=== PATIENT | female | born 1995 | race African-American/Black ===

== ENCOUNTER 2023-03-21 08:39 | Emergency (ER) | payer OTHER ==
--- OUTSIDE RECORDS SUMMARY | 2023-03-21 08:41 | XMS REPORT | Continuity of Care Document ---
:1995 Author Organization [facility] t Address [address] [facility] [address] [place] [address] Care Team Providers Name Role Phone PCP, PATIENT DOES NOT HAVE A Primary Care Physician Unavaila Margy Diaz Attending Clinician Unavailable Katrina MORENO Attending Clinician Unavailable Katrina Bravo Attending Clinician CENTER, URGENT CARE Admitting Clinician Unavailable Physician, No Primary or Family Admitting Clinician Unavaila sina Payers Payer Name Policy Type Policy Number Effective Date Expiration Date S driss [facility] [id number] 2022 MANAGED MEDICAID 00:00:00 STAR NON CONTRACTED Problems This patient has no known problems. Allergies, Adverse Reactions, Alerts Allergy Allergy Status Severity Reaction(s) Onset Inactive Treating Comm ents Source Name Type Date Date Clinician No Known DA Active [facility] No Known DA Active U [facility] All[facility]ie 09-02 [facility] NO KNOWN Drug Active Univers ALLERGIE Class ity of S [facility] Social History Social Habit Start Date Stop Date Quantity Comments Source Exposure to 2022-09-21 2022-10-01 Not sure [facility] SARS-CoV-2 (event) 00:00:00 23:41:00 Medica l Branch Sex Assigned At [birth year] [facility] 00:00:00 00:00:00 Medical Branch Smoking Status Start Date Stop Date Source Tobacco smoking consumption [facility] unknown Branch Medications This patient has no known medications. Vital Signs Vital Name Observation Time Observation Value Comments Source Systolic blood 2022-10-02 119 mm[Hg] Simultaneous [facility] pressure 06:40:00 filing. User may [place] [facility] not have seen Branch previous data. Diastolic blood 2022-10-02 70 mm[Hg] Simultaneous [facility] pressure 06:40:00 filing. User may [place] [facility] not have seen Branch previous data. Heart rate 2022-10-02 82 /min Simultaneous [facility] 06:40:00 filing. User may [place] [facility] not have seen Branch previous data. Body temperature 2022-10-02 36.89 Aracelis [facility] 06:40:00 [facility] Respiratory rate 2022-10-02 16 /min Simultaneous [facility] 06:40:00 filing. User may [place] [facility] not have seen Branch previous data. Oxygen saturation 2022-10-02 98 /min Simultaneous [facility] in Arterial blood 06:40:00 filing. User may [place] [facility] by Pulse oximetry not have seen Branch previous data. Body height 2022-10-02 162.6 cm [facility] 04:41:00 [facility] Body weight 2022-10-02 76.204 kg [facility] 04:41:00 [facility] BMI 2022-10-02 28.84 kg/m2 [facility] 04:41:00 [facility] Procedures Procedure Date / Time Performing Clinician Source Performed ABORH CONFIRMATION (LAB 2022-10-02 06:11:00 Katrina Moreno [facility] ONLY) [facility] TOTAL BETA HCG ASSAY 2022-10-02 05:14:00 Kartina Moreno [facility] HB ABO GROUPING 2022-10-02 05:14:00 Katrina Moreno [facility] URINALYSIS 2022-10-02 04:52:00 Katrina Moreno [facility] NOTICE OF PRIVACY 2022-10-02 04:38:24 Doctor Unassigned, No [facility] PRACTICES Name Medical Branch CONSENT/REFUSAL FOR 2022-10-02 04:37:37 Doctor Unassigned, No Un [facility] DIAGNOSIS AND TREATMENT Name Medical Branch Encounters Start End Encounter Admission Attending Care Care Encounter Source Date/Time Date/Time Type Type Clinicians Facility Department ID 2023-01-21 2023-01-21 Outpatient [facility] [id number] [place] 08:04:19 08:04:19 [id number] [facility] 2023-01-19 2023-01-19 Outpatient [facility] [place] 11:10:08 11:10:08 [id number] [facility] 2023-01-17 2023-01-17 Emergency EM Matthias [facility] [id number] [facility] 08:44:00 10:19:00 Margy [facility] 2022-12-29 2022-12-29 Outpatient [facility] [id number] [place] 13:32:16 13:32:16 [id number] [facility] 2022-10-19 2022-10-19 Emergency EM Matthias [facility] [id number] [facility] 08:28:00 10:48:00 Margy [facility] 2022-10-01 2022-10-02 Emergency X Katrina MORENO [facility] ERT [id number] Univers 23:47:00 01:44:00 ity of [facility] 2022-10-01 2022-10-02 Emergency Katrina Moreno [facility] [id number] Univers 23:47:00 01:44:00 Melissa ANNE [id number] i [facility] [id number] [facility] [id number] [place] [id number] [place] Results Test Description Test Time Test Comments Results Result Comments Source GLUCOSE TOLERANCE, 3 HR, GESTATIONAL, DIAGNOSTIC, 100 GM LOAD 2023-01-25 16:25:22 Test Item Value Reference Range Interpretation Comme nts GLUCOSE, FASTING (test TEST NOT PERFORMED MG/DL <95 Unable to perform testing, code = 18146) specimen not r eceived.Charges adjusted as bay licable. GLUCOSE, 1 HR (test 180 MG/DL <180 H code = ) GLUCOSE, 2 HR (test 193 MG/DL <155 H code = ) GLUCOSE, 3 HR (test 164 MG/DL <140 H CRITERI A FOR GESTATIONAL code = ) DIABETES SAMPL E CHE/COUST AN AZIZA'L DIABETES DATA G ROUP FASTING < 95 MG/DL 105 MG /DL 1 HOUR < 180 MG/DL 190 M G/DL 2 HOURS < 155 MG/DL 165 M G/DL 3 HOURS < 140 MG/DL 145 M G/DL (FROM [facility] PRACTICE BULLET IN NUMBER , 2000 ) UNLESS OTHERWISE INDIC ATED, ALL TESTING PERFORM ED AT [facility] [address] [place] [address] LABORATORY DIRE CTOR: Verna NAVA VIOLETTA NUMBER [id number] [place]. [id number] DO NOT HAVE FASTING RCVDGLUCOSE, 1 HR, GESTATIONAL SCREEN, 50 GM [id number] 08:18:52 Test Item Value Reference Range Interpretation Comments GLUCOSE 1 HR POST 147 MG/DL <140 H UNLESS OT HERWISE 50 GM (test code = INDICATED , ALL TESTING 2005) PERFORMED AT [facility] [address] [place] [id number] [place] [address] DIRECTOR: Verna ROSAS VIOLETTA NUMBER [id number] CAP ACCREDITATION N O. [id number] UA RFLX MICR CULT IF [id number] 09:43:00 Test Item Value Reference Range Interpretation Comments UA COLOR (test code = COLU) YELLOW YELLOW UA APPEARANCE (test code = CLEAR CLEAR APPU) UA GLUCOSE DIPSTICK (test code NEGATIVE NEG = DGLUU) UA BILIRUBIN DIPSTICK (test NEGATIVE NEG code = BILU) UA KETONE DIPSTICK (test code NEGATIVE NEG = KETU) UA SPECIFIC GRAVITY (test code 1.008 1.001-1.035 N = SGU) UA BLOOD DIPSTICK (test code = NEG NEG PABLO) UA PH DIPSTICK (test code = 7.0 5-9 MICHELE) UA PROTEIN DIPSTICK (test code NEGATIVE NEG = PROU) UA UROBILINIOGEN DIPSTICK NEGATIVE mg/dL NEG (test code = URO) UA NITRITE DIPSTICK (test code NEG NEG = CAMPOS) UA LEUKOCYTE ESTERASE DIPSTICK NEG NEG (test code = LEUU) UA WBC (test code = WBCU) 0-2 #/hpf NONE SEEN UA EPITHELIAL CELLS (test code RARE #/HPF RARE-FEW = EPIU) UA RBC (test code = RBCU) 0-2 #/hpf NONE SEEN UA BACTERIA (test code = BACU) RARE /HPF RARE-FEW UA MUCUS (test code = MUCU) RARE NONE SEEN Indication for culture: Suprapubic PainSpecimen Description: CLEAN CATCHUR HCG [id number] 09:43:00 Test Item Value Reference Range Interpretation Comments UR HCG QUAL (test code = HCGQLU) POSITIVE Indication for culture: Suprapubic PainSpecimen Description: CLEAN CATCHCULTURE, [id number] 09:06:35SPECIMEN NUMBER: [id number] CULTURE, URINE SPECIMEN NUMBER: [id number] SPECIMEN COMMENT: URINE SOURCE:URINE REPORT STATUS: FINAL FINAL REPORT: 12/31/2022 50-100,000 CFU/ML UROGENITAL ADDISON PRESENT NO COMMON PATHOGENSDRUG ABUSE SCREEN 10 REFLEX [id number] 07:38:28 Test Item Value Reference Range Interpretation Comments AMPHETAMINES (test NEGATIVE NEGATIVE code = 3201) BARBITURATES (test NEGATIVE NEGATIVE code = 3202) BENZODIAZEPINES (test NEGATIVE NEGATIVE code = 3203) CANNABINOIDS (test NEGATIVE NEGATIVE code = 3204) COCAINE METABOLITE NEGATIVE NEGATIVE (test code = 3205) OPIATES (test code = NEGATIVE NEGATIVE 3209) OXYCODONE (test code NEGATIVE NEGATIVE = 27015) PHENCYCLIDINE (test NEGATIVE NEGATIVE code = 3210) METHADONE (test code NEGATIVE NEGATIVE = 3207) BUPRENORPHINE (test NEGATIVE NEGATIVE code = 43187) SOURCE (test code = URINE SEE BELOW FOR 182195) THRESHOLDS AND IMPORTANT METHOD NOTES * ANALYTE SCREENING CUTOF F CONFIRMATORY CUTOFF AMPHETAMINES 50 0 NG/ML 100 NG/MLBARBIT URATES 200 NG/ML 100 NG/MLBENZODIAZE PINES 200 NG/ML 100 NG/MLCANNABINOI DS (THC) 20 NG/ML 15 NG/ MLCOCAINE METABOLITES 150 NG/ML 100 NG/MLOPIATE MET ABOLITES 300 NG/ML 100 NG/MLOXYCODONE 100 NG/ML 100 NG/MLPHENCY CLIDINE (PCP) 25 NG/ML 25 NG/MLMETHADONE 300 NG/ML 100 NG/MLBUPREN ORPHINE 5 NG/ML 5 NG/ML N OTE: Screening metho dology is qualitative Enz yme Immunoassay.The screening method may be l ess sensitive for c ertain medicationsincl uding clonazepam and lorazepam in the benzodia zepine assay andtramad ol or fentanyl in the opiate assay, amongst others. Patientcomplian ce, hydration statu s, timing and dose of med ications, drugabsorption and specimen qualit y may affect screenin g assay.For clini luis discrepancies, consider directed testin g for specificcompoun ds or contact the lab oratory within specimen stability toforward for confirmatory te sting. This test is sp ecified for medicalpurp oses only. It is not valid for forensic use. U NLESS OTHERWISE INDIC ATED, ALL TESTING PERFORM ED AT [facility] PATHOL [facility], [address] [address] LABORATORY DIRE CTOR: TOM HERNANDEZ M.D. CLIA NUMBER [id number] [facility] [place]. [id number] RPR REFLEX TO T. PALLIDUM - [id number] 05:33:34 Test Item Value Reference Range Interpretation Comments RPR (test code = 52112) NON-REACTIVE NON-REACTIVE RPR TITER (test code = 3500) NOT INDIC. TITER NOT INDIC. CBC W/AUTO DIFF WITH [id number] 05:04:08 Test Item Value Reference Range Interpretation Comments WBC (test code = 6.2 K/UL 3.5-11.0 1001) RBC (test code = 3.83 M/UL 3.80-5.40 1002) HEMOGLOBIN (test code 11.0 G/DL 11.5-15.5 L = 1003) HEMATOCRIT (test code 33.7 % 34.0-45.0 L = 1004) MCV (test code = 88.0 fL 80.0-99.0 1005) MCH (test code = 28.7 PG 25.0-33.0 1006) MCHC (test code = 32.6 G/DL 31.0-36.0 1007) RDW (test code = 13.4 % 11.5-15.0 1038) NEUTROPHILS (test 75.0 % code = 1008) LYMPHOCYTES (test 15.3 % code = 1010) MONOCYTES (test code 9.0 % = 1011) EOSINOPHILS (test 0.3 % code = 1012) BASOPHILS (test code 0.2 % = 1013) IMMATURE GRANULOCYTES 0.2 % (test code = 1036) NUCLEATED RBCS (test 0.0 /100 WBC'S See_Comment [Aut omated code = 1065) message] The sy stem which generated this result transmitted reference range : 0.0. The refere nce range was not u sed to interpret th is result as normal/abnormal . PLATELET COUNT (test 248 K/UL 130-400 code = 1015) ABSOLUTE NEUTROPHILS 4.64 K/UL 1.50-7.50 (test code = 1066) ABSOLUTE LYMPHOCYTES 0.95 K/UL 1.00-4.00 L (test code = 1067) ABSOLUTE MONOCYTES 0.56 K/UL 0.20-1.00 (test code = 1068) ABSOLUTE EOSINOPHILS 0.02 K/UL 0.00-0.50 (test code = 1040) ABSOLUTE BASOPHILS 0.01 K/UL 0.00-0.20 (test code = 1069) ABS IMMATURE 0.01 K/UL 0.00-0.10 GRANULOCYTES (test code = 1020) ABS NUCLEATED RBCS 0.00 K/UL 0.00-0.11 (test code = 35246) HIV 1/2 4TH GEN, RFLX [id number] 04:34:38 Test Item Value Reference Range Interpretation Comments HIV 1/2 4TH GEN, RFLX CONF (test NON-REACTIVE NON-REACTIVE code = 3514) UA RFLX MICR CULT IF [id number] 09:55:00 Test Item Value Reference Range Interpretation Comments UA COLOR (test code = COLU) STRAW YELLOW UA APPEARANCE (test code = CLEAR CLEAR APPU) UA GLUCOSE DIPSTICK (test code NEGATIVE NEG = DGLUU) UA BILIRUBIN DIPSTICK (test NEGATIVE NEG code = BILU) UA KETONE DIPSTICK (test code NEGATIVE NEG = KETU) UA SPECIFIC GRAVITY (test code 1.005 1.001-1.035 N = SGU) UA BLOOD DIPSTICK (test code = NEG NEG PABLO) UA PH DIPSTICK (test code = 8.0 5-9 MICHELE) UA PROTEIN DIPSTICK (test code NEGATIVE NEG = PROU) UA UROBILINIOGEN DIPSTICK NEGATIVE mg/dL NEG (test code = URO) UA NITRITE DIPSTICK (test code NEG NEG = CAMPOS) UA LEUKOCYTE ESTERASE DIPSTICK NEG NEG (test code = LEUU) UA WBC (test code = WBCU) 0-2 #/hpf NONE SEEN UA EPITHELIAL CELLS (test code RARE #/HPF RARE-FEW = EPIU) Indication for culture: Gross HematuriaSpecimen Description: CLEAN CATCHUR HCG [id number] 09:55:00 Test Item Value Reference Range Interpretation Comments UR HCG QUAL (test code = HCGQLU) POSITIVE Indication for culture: Gross HematuriaSpecimen Description: CLEAN CATCH
[2023-03-21 09:47] LABS: SARS-COV-2 RT PCR NEGATIVE (NEGATIVE)
--- NOTE | 2023-03-21 09:49 | EDPHYS ---
Physician Documentation [facility] Name: Arianna Tran Age: 27 yrs Sex: Female : 1995 Arrival Date: 03/21/2023 Time: 08:39 Bed 12 Private MD: ED Physician Juan Alberto Espinoza HPI: 03/21 09:03 This 27 yrs old Black Female presents to ER via Ambulatory with complaints of Flu kb Symptoms, Ear Pain. 09:03 Patient is a 27-year-old female with no medical history presents for cough, congestion, kb ear pain, fever and chills. States symptoms started yesterday. Daughter had flu B last week.. Historical: - Allergies: 08:50 No Known Allergies; ap3 - Home Meds: 08:50 Vitamin Oral [Active]; ap3 - PMHx: 08:50 None; ap3 - PSHx: 08:50 None; ap3 - Immunization history:: Adult Immunizations up to date. - Social history:: Smoking status: Patient denies any tobacco usage or history of. ROS: 09:03 Abdomen/GI: Negative for abdominal pain, nausea, vomiting, diarrhea, and constipation, kb 09:03 Constitutional: Positive for chills, fever, malaise, 09:03 ENT: Positive for ear pain, rhinorrhea, 09:03 Respiratory: Positive for cough, 09:03 All other systems are negative, Exam: 09:03 Constitutional: This is a well developed, well nourished patient who is awake, alert, kb and in no acute distress. Head/Face: Normocephalic, atraumatic. Cardiovascular: Regular rate Respiratory: Respirations even and unlabored. No increased work of breathing. Talking in full sentences Skin: Warm, dry with normal turgor. Normal color. MS/ Extremity: Pulses equal, no cyanosis. Neurovascular intact. Full, normal range of motion. Neuro: Awake and alert, GCS 15, oriented to person, place, time, and situation. Moves all extremities. Normal gait. 09:03 ENT: TM's: erythema, that is moderate, on the right, fluid levels, on the right, Vital Signs: 08:48 BP 132 / 89; Pulse 98; Resp 18; Temp 98.3(O); Pulse Ox 99% on R/A; Weight 84.37 kg; ap3 10:24 Pulse 97; Resp 15; Temp 98.7; Pulse Ox 99% ; jl7 MDM: 08:40 Patient medically screened. kb 09:04 Differential diagnosis: Flu, COVID, otitis media, otitis externa, URI. Data reviewed: kb vital signs, nurses notes. 09:47 Counseling: I had a detailed discussion with the patient and/or guardian regarding the kb historical points, exam findings, and any diagnostic results supporting the discharge/admit diagnosis, lab results, the need for outpatient follow up, a family practitioner, to return to the emergency department if symptoms worsen or persist or if there are any questions or concerns that arise at home. 03/21 08:45 Order name: COVID-19/FLU A+B/RSV; Complete Time: 09:48 kb Administered Medications: No medications were administered Disposition: 09:52 I was immediately available on-site in the Emergency Department for consultation in the wv3 care of the patient. Disposition Summary: 03/21/23 09:49 Discharge Ordered Notes: Location: Home kb Condition: Stable kb Diagnosis - Influenza due to identified novel influenza A virus - B kb Discharge Instructions: - Discharge Summary Sheet kb - Influenza, Adult, [id number] kb Forms: - Medication Reconciliation Form kb - Thank You Letter kb - Antibiotic Education kb - Prescription Opioid Use kb - Patient Portal Instructions kb - Leadership Thank You Letter kb - Work release form jl7 Prescriptions: - Tamiflu 75 mg Oral capsule - take 1 tablet ORAL route every 12 hours for 5 days; 10 tablet; Refills: 0, kb Product Selection Permitted Signatures: Dispatcher [employer] Carissa Larsen, Anjali Guerra, RN RN ap3 Juan Alberto Espinoza DO DO ms3
--- NOTE | 2023-03-21 09:49 | ER ---
Nurse's Notes [facility] Name: Arianna Tran Age: 27 yrs Sex: Female : 1995 Arrival Date: 03/21/2023 Time: 08:39 Bed 12 Private MD: Diagnosis: Influenza due to identified novel influenza A virus-B Presentation: 03/21 08:48 Chief complaint: Patient states: she started having cough, fever, chills and right ear ap3 pain yesterday 03/20/2023. Coronavirus screen: Client presents with at least one sign or symptom that may indicate coronavirus-19. Ebola Screen: No symptoms or risks identified at this time. Initial Sepsis Screen: Does the patient meet any 2 criteria? No. Patient's initial sepsis screen is negative. Does the patient have a suspected source of infection? Yes: Productive cough/pneumonia. Risk Assessment: Do you want to hurt yourself or someone else? Patient reports no desire to harm self or others. Onset of symptoms was March 20, 2023. 08:48 Method Of Arrival: Ambulatory ap3 08:48 Acuity: LIZY 4 ap3 Triage Assessment: 08:50 General: Appears ill, Behavior is calm, cooperative, appropriate for age. Pain: ap3 Complains of pain in right ear. EENT: Reports pain in right ear. Neuro: Level of Consciousness is awake, alert, obeys commands, Oriented to person, place, time, situation. Cardiovascular: Patient's skin is warm and dry. Respiratory: Airway is patent Respiratory effort is even, unlabored, Respiratory pattern is regular, symmetrical. Historical: - Allergies: 08:50 No Known Allergies; ap3 - Home Meds: 08:50 Vitamin Oral [Active]; ap3 - PMHx: 08:50 None; ap3 - PSHx: 08:50 None; ap3 - Immunization history:: Adult Immunizations up to date. - Social history:: Smoking status: Patient denies any tobacco usage or history of. Screenin:51 [facility] ED Fall Risk Assessment (Adult) History of falling in the last 3 months, ap3 including since admission No falls in past 3 months (0 pts). Abuse screen: Denies threats or abuse. Nutritional screening: No deficits noted. Tuberculosis screening: No symptoms or risk factors identified. Vital Signs: 08:48 BP 132 / 89; Pulse 98; Resp 18; Temp 98.3(O); Pulse Ox 99% on R/A; Weight 84.37 kg; ap3 10:24 Pulse 97; Resp 15; Temp 98.7; Pulse Ox 99% ; jl7 ED Course: 08:40 Patient arrived in ED. rg4 08:40 Carissa Pierce FNP-C is [facility]. kb 08:40 Juan Alberto Espinoza DO is Attending Physician. kb 08:50 Triage completed. ap3 08:51 Arm band placed on right wrist. ap3 08:51 Patient has correct armband on for positive identification. Bed in low position. Call ap3 light in reach. Side rails up X 1. Pulse ox on. NIBP on. 08:58 COVID-19/FLU A+B/RSV Sent. ap3 08:58 Flu and/or RSV swab sent to lab. ap3 10:23 Ruth Orozco, RN is Primary Nurse. jl7 10:24 No provider procedures requiring assistance completed. Patient did not have IV access jl7 during this emergency room visit. Administered Medications: No medications were administered Medication: 10:24 VIS not applicable for this client. jl7 Outcome: 09:49 Discharge ordered by . kb 10:24 Discharged to home ambulatory, jl7 10:24 Condition: stable 10:24 Discharge instructions given to patient, Instructed on discharge instructions, follow up and referral plans. medication usage, Demonstrated understanding of instructions, follow-up care, medications, Prescriptions given X 1, 10:24 Patient left the ED. jl7 Signatures: Carissa Pierce FNP-C FNP-Maria D Santizo rg4 Ruth Orozco, RN RN jl7 Anjali Lei RN RN ap3
[2023-03-21 10:35] VITALS: BP 132/89; O2SAT 99
[2023-03-21 10:36] VITALS: TEMP 98.7
== END 2023-03-21 10:24 | disposition home or self-care (01) ==
LOC: ER 08:39
DX: J10.1 Influenza due to other identified influenza virus with other respiratory manifestations (principal); H92.09 Otalgia, unspecified ear; Z11.52 Encounter for screening for COVID-19
CPT/HCPCS: 0241U; 99283

== ENCOUNTER 2023-09-03 21:07 | Emergency (ER) | payer OTHER ==
--- OUTSIDE RECORDS SUMMARY | 2023-09-03 21:11 | XMS REPORT | Continuity of Care Document ---
Author Name Unknown Address [address] [facility] [address] [place] [address] [facility] thcwelia healthect Address [address] [facility] [place] [address] Care Team Providers Care Delivery Recruiter Name Role Phone PCP, PATIENT DOES NOT HAVE A Primary Care Physic jason Unavailable Deniz Macias Attending Clinician Unavailable Kaleb Roblero Attending Clinician UnavailMargy Yu Attending Clinician Unavail Katrina Almaraz Attending Clinician Katrina MORENO Attending Clinician Unavailable Kaleb Roblero Admitting Clinician Juliana flores [facility] Admitting Clinician Unavaila ble Physician, No Primary or Family Admitting Clinic jason Unavailable Payers Payer Name Policy Type Policy Number Effective Date Expirati on Date Source [facility] MEDICAID STAR NON CONTRACTED [id number] 2022 00:00:00 Allergies, Adverse Reactions, Alerts Allergy Name Allergy Type Status Severity Reaction(s) Onset Date Inactive Date Treating Clinician Comments Source No Known Allergie s DA Active U 2022-05 00:00: 00 [facility] No Known Allergie s DA Active U 2022-05 00:00: 00 [facility] No Known Allergie s DA Active U 2022-05 00:00: 00 [facility] No Known Allergie s DA Active U 2022-05 1-18 00:00: 00 [facility] No Known Allergie s DA Active U 01-17 00:00: 00 [facility] No Known Allergie s DA Active U 09-02 00:00: 00 [facility] NO KNOWN ALLERGIE S Drug Class Active [facility] Social History Social Habit Start Date Stop Date Quantity Comments Source Exposure to SARS-CoV-2 (event) 2022-09-21 00:00:00 2022-10-01 23:41:00 Not sure [facility] Sex Assigned At 1995 00:00:00 1995 00:00:00 [facility] Smoking Status Start Date Stop Date Source Tobacco smoking consumption unknown [facility] Vital Signs Vital Name Observation Time Observation Value Comments S ource Systolic blood pressure 2022-10-02 06:40:00 119 mm[Hg] Simultaneous filing. User may not have seen previous data. [facility] Diastolic blood pressure 2022-10-02 06:40:00 70 mm[Hg] Simultaneous filing. User may not have seen previous data. [facility] Heart rate 2022-10-02 06:40:00 82 /min Simultaneous filing. User may not have seen previous data. [facility] Body temperature 2022-10-02 06:40:00 36.89 Aracelis [facility] Respiratory rate 2022-10-02 06:40:00 16 /min Simultaneous filing. User may not have seen previous data. [facility] Oxygen saturation in Arterial blood by Pulse oximetry 2022-10-02 06:40:00 98 /min Simultaneous filing. User may not have seen previous data. [facility] Body height 2022-10-02 04:41:00 162.6 cm [facility] Body weight 2022-10-02 04:41:00 76.204 kg [facility] BMI 2022-10-02 04:41:00 28.84 kg/m2 [facility] Procedures Procedure Date / Time Performed Performing Clinician Source [id number] 2023-04-05 00:00:00 [facility] ABORH CONFIRMATION (LAB ONLY) 2022-10-02 06:11:00 Katrina Moreno [facility] TOTAL BETA HCG ASSAY 2022-10-02 05:14:00 Katrina Moreno [facility] HB ABO GROUPING 2022-10-02 05:14:00 [facility] 2022-10-02 04:52:00 Katrina Moreno Unive [facility] NOTICE OF PRIVACY PRACTICES 2022-10-02 04:38:24 Doctor Unassigned, [place] [facility] CONSENT/REFUSAL FOR DIAGNOSIS AND TREATMENT 2022-10-02 04:37:37 Doctor Unassigned, [place] [facility] Encounters Start Date/Time End Date/Time Encounter Type Admission Type Attending Clinicians Care Facility Care Department Encounter ID Source 2023-08-29 17:15:21 2023-08-29 17:15:21 Outpatient [facility] [id number] Deven Talbert Yruiy 2023-08-15 22:48:00 2023-08-16 00:59:00 Emergency EM Deniz Macias [facility] DAYA [id number] 57 [facility] 2023-04-04 05:05:00 2023-04-08 15:34:00 Inpatient EL Vincentya Kaleb [facility] OBPP [id number] 36 [facility] 2023-03-29 10:26:00 2023-03-30 13:25:00 Inpatient EM Vincentya Kaleb [facility] OBANTE [id number] 66 [facility] 2023-01-21 08:04:19 2023-01-21 08:04:19 Outpatient [facility] [id number] Deven Yan 2023-01-19 11:10:08 2023-01-19 11:10:08 Outpatient [facility] [id number] Deven Yan 2023-01-17 08:44:00 2023-01-17 10:19:00 Emergency EM Matthias, Margy [facility] [id number] [facility] 2022-12-29 13:32:16 2022-12-29 13:32:16 Outpatient [facility] [id number] Deven Yan 2022-10-19 08:28:00 2022-10-19 10:48:00 Emergency EM Margy Rizzo [facility] [id number] [facility] 2022-10-01 23:47:00 2022-10-02 01:44:00 Emergency Katrina Moreno [facility] [id number] [facility] 2022-10-01 23:47:00 2022-10-02 01:44:00 Emergency X Katrina MORENO [facility] ERT [id number] [facility] Results Test Description Test Time Test Comments Results Result Co mments Source - US ABDOMEN [id number] 23:57:00 [facility] 1995 Sex: F Name: MICHAEL TRAN [facility] [place] : 1995 Age/S: 28 / F [address] [place] [address] Unit #: [id number] Loc: [place] [address] Phys: Deniz Macias MD Acct: [id number] Dis Date: Status: REG ER PHONE #: [phone] Exam Date: 08/15/2023 2348 FAX #: [phone] Reason: ruq pain EXAMS: CPT CODE: [id number] US ABDOMEN LTD 38977 EXAMINATION: - US ABDOMEN LTD CLINICAL INDICATION: Female, 28 years old with ruq pain TECHNIQUE: Grayscale and color Doppler evaluation of the right upper quadrant of the abdomen was performed. COMPARISON: Right upper quadrant ultrasound March 27, 2023 FINDINGS: Liver: The liver exhibits normal echogenicity and size. No focal hepatic lesion. No intrahepatic biliary ductal dilation. Gallbladder: There is suggestion of minimal gallbladder sludge, no wall thickening or pericholecystic fluid. The common bile duct measures 3mm. Pancreas: The visualized portion demonstrates normal echogenicity. No suspicious lesions or ductal dilation. Right Kidney: The right kidney measures 10.4 cm x 6.2 cm x 6 cm in size. No hydronephrosis. No suspicious renal mass noted. No re nal calculi noted. Vascular: The visualized portions of the inferior vena cava and aorta are withinnormal limits. Peritoneum: There is no free fluid in the abdomen. IMPRESSION: Probable gallbladdersludge, no acute sonographic abnormality present otherwise. at 3730 Reported and signed by: Steven Noble M.D. PAGE 1 Signed Report (CONTINUED) Name: MICHAEL TRAN [facility] : 1995 Age/S: 28 / F [address] [place] [address] Unit #: [id number] Loc: [place] [address] Phys: Deniz Macias MD Acct: [id number] Dis Date: Status: REG ER PHONE #: [phone] Exam Date: 08/15/20232347 FAX #: [phone] Reason: ruq pain EXAMS: CPT CODE: [id number] US ABDOMEN LTD 00860 (Continued) CC: Deniz Macias MD Technologist: Lacie Menchaca RDMS(AB)(OB) Trnscb Date/Time: 08/15/2023 (6227) [id number] Orig Print D/T: S: 08/16/2023 (0000) Probe: PAGE 2 Signed Report HEPATIC FUNCTION [id number] 23:49:00* Test Item Value Reference Range Interpretation Comme nts TOTAL PROTEIN (test code = PROT) 7.2 g/dL 6.4-8.2 N ALBUMIN (test code = ALB) 3.70 g/dL 3.4-5.0 N BILIRUBIN TOTAL (test code = BILT) 0.80 mg/dL 0.0-1.0 N BILIRUBIN DIRECT (test code = BILD) 0.20 MG/DL 0.1-0.3 N BILIRUBIN INDIRECT (test cod e = BILIND) 0.60 MG/DL SGOT/AST (test code = AST) 30 IUnit/L 8-34 N SGPT/ALT (test code = ALT) 34 IUnit/L 10-49 N ALKALINE PHOSPHATASE TOTAL ( test code = ALKP) 42 IUnit/L 20-125 N CBC W/AUTO [id number] 23:31:00* Test Item Value Reference Range Interpretation Comme nts WHITE BLOOD CELL (test code = WBC) 6.0 x10 3/uL 4.5-11.0 RED BLOOD CELL (test code = RBC) 4.38 x10 6/uL 3.54-5.02 N HEMOGLOBIN (test code = HGB) 12.7 g/dL 11.0-15.0 N HEMATOCRIT (test code = HCT) 36.9 % 33.0-45.0 N MEAN CELL VOLUME (test code = MCV) 84.2 fL 81.0-99.0 N MEAN CELL HGB (test code = MCH) 29.0 pg 27.0-33.0 N MEAN CELL HGB CONCETRATION (test code = MCHC) 34.4 g/dL 33.0-37.0 N RED CELL DISTRIBUTION WIDTH CV (test code = RDW) 12.8 % 11.5-14.5 N RED CELL DISTRIBUTION WIDTH SD (test code = RDW-SD) 39.3 fL 37.0-54.0 N PLATELET COUNT (test code = PLT) 318 x10 3/uL 150-400 N MEAN PLATELET VOLUME (test c ode = MPV) 11.9 fL 7.0-9.0 H NEUTROPHIL % (test code = NT%) 53.1 % 56.0-77.0 L IMMATURE GRANULOCYTE % (test code = IG%) 0.2 % 0.0-2.0 N LYMPHOCYTE % (test code = LY%) 39.7 % 14.0-32.0 H MONOCYTE % (test code = MO%) 5.7 % 4.8-9.0 N EOSINOPHIL % (test code = EO%) 0.8 % 0.3-3.7 N BASOPHIL % (test code = BA%) 0.5 % 0.0-2.0 N NUCLEATED RBC % (test code = NRBC%) 0.0 % 0-0 N NEUTROPHIL # (test code = NT#) 3.17 x10 3/uL 2.0-7.6 N IMMATURE GRANULOCYTE # (test code = IG#) 0.01 x10 3/uL 0.00-0.03 N LYMPHOCYTE # (test code = LY#) 2.37 x10 3/uL 1.0-3.8 N MONOCYTE # (test code = MO#) 0.34 x10 3/uL 0.1-0.8 N EOSINOPHIL # (test code = EO#) 0.05 x10 3/uL 0.0-0.2 N BASOPHIL # (test code = BA#) 0.03 x10 3/uL 0.0-0.2 N NUCLEATED RBC # (test code = NRBC#) 0.00 x10 3/uL 0.0-0.1 N PLT [id number] 23:31:00* Test Item Value Reference Range Interpretation Comme nts PLATELET ESTIMATE (test code = PLTEST) Adequate THOUSAND ADEQUATE PLATELET MORPHOLOGY (test code = PLTMORPH) LARGE PLATELETS BASIC METABOLIC [id number] 23:22:00* Test Item Value Reference Range Interpretation Comme nts SODIUM (test code = NA) 138 mEq/L 134-147 N POTASSIUM (test code = K) 3.9 mEq/L 3.4-5.0 N CHLORIDE (test code = CL) 108 mEq/L 100-108 N CARBON DIOXIDE (test code = CO2) 23 mEq/l 21-33 N ANION GAP (test code = GAP) 11 0-20 N GLUCOSE (test code = GLU) 113 mg/dL 77-141 N BLOOD UREA NITROGEN (test code = BUN) 11 mg/dL 7-25 N GLOMERULAR FILTRATION RATE (test code = GFR) 69.8 110-120 L The Glomerular Filtration Rate is a calculated parameterbased on serum Creatinine, patient age and sex. GFR valuesless than 60 mL/min/1.73 square meters are indicative ofChronic Kidney Disease. Values less than 15 mL/min/1.73square meters indicate Kidney failure. The calculation forGFR is based on the CKD-EPI (202) calculation. This formulais race indifferent and is the recommended formula for GFRby the National Kidney Foundation for Adults.The GFR will not calculate if the sex is unknown or if thepatient's age is <18 years. CREATININE (test code = CREAT) 1.1 mg/dL 0.6-1.3 N CALCIUM (test code = CA) 8.7 mg/dL 8.0-10.5 N [id number] 23:22:00* Test Item Value Reference Range Interpretation Comme nts LIPASE (test code = LIP) 51 U/L 13-57 N [id number] 23:22:00* Test Item Value Reference Range Interpretation Comme nts MAGNESIUM (test code = MAG) 1.84 mg/dL 1.6-2.6 N UA RFLX MICR CULT IF [id number] 23:22:00* Test Item Value Reference Range Interpretation Comme nts UA COLOR (test code = COLU) YELLOW YEL/STRAW UA APPEARANCE (test code = APPU) CLEAR CLEAR UA GLUCOSE DIPSTICK (test co de = DGLUU) NEGATIVE NEGATIVE UA BILIRUBIN DIPSTICK (test code = BILU) NEGATIVE NEGATIVE UA KETONE DIPSTICK (test cod e = KETU) NEGATIVE NEGATIVE UA SPECIFIC GRAVITY (test co de = SGU) 1.012 1.005-1.030 N UA BLOOD DIPSTICK (test code = PABLO) NEGATIVE NEGATIVE UA PH DIPSTICK (test code = MICHELE) 6.0 5.0-7.0 N UA PROTEIN DIPSTICK (test co de = PROU) NEGATIVE NEGATIVE UA UROBILINIOGEN DIPSTICK (t est code = URO) 4.0 mg/dL 0.2-1.0 A UA NITRITE DIPSTICK (test co de = CAMPOS) NEGATIVE NEGATIVE UA LEUKOCYTE ESTERASE DIPSTI CK (test code = LEUU) 1+ NEGATIVE A UA WBC (test code = WBCU) 0-3 WBC/HPF 0-3 UA RBC (test code = RBCU) 0-3 RBC/HPF 0-3 UA WBC NO REFLEX (test code = WBCUCL) 0-3 WBC/HPF 0-3 UA BACTERIA (test code = BACU) TRACE /HPF NONE SEEN UA SQUAMOUS CELLS (test code = SQU) 0-5 /HPF NONE SEEN Indication for culture: Gross Hematuria Dysuria/FrequencySpecimen Description: CLEAN CATCHHEPATIC FUNCTION [id number] 06:39:00* Test Item Value Reference Range Interpretation Comme nts TOTAL PROTEIN (test code = PROT) 6.4 g/dL 6.4-8.2 ALBUMIN (test code = ALB) 2.80 g/dL 3.4-5.0 L BILIRUBIN TOTAL (test code = BILT) 0.60 mg/dL 0.0-1.0 BILIRUBIN DIRECT (test code = BILD) 0.20 MG/DL 0.1-0.3 N NOTE: NEW NORMAL RANGE BILIRUBIN INDIRECT (test code = BILIND) 0.40 MG/DL SGOT/AST (test code = AST) 24 IUnit/L 8-34 N NOTE: NEW NORMAL RANGE SGPT/ALT (test code = ALT) 36 IUnit/L 10-49 N NOTE: NEW NORMAL RANGE ALKALINE PHOSPHATASE TOTAL (test code = ALKP) 139 IUnit/L 20-125 H [id number] 10:20:00* Test Item Value Reference Range Interpretation Comments SURGICAL (test code = SR) RUN DATE: 04/07/23 [place] - LAB PAGE 1 RUN TIME: 1020 Specimen Inquiry RUN USER: INTERFACE PATIENT: MICHAEL TRAN LOC: ELIU U #: [id number] AGE/SX: 27/F ROOM: [facility] RE04/04/23REG DR: Kaleb Roblero MD : [birth year] BED: 1 DIS: STATUS: ADM IN TLOC: SPEC #: [id number] RECD: 04/06/23 STATUS: NUVIA BEASLEY #: [id number] TRISH: 04/05/23- SUBM DR: Kaleb Roblero MD ENTERED: 04/06/23 SP TYPE: SURGICAL OTHR DR: ORDERED: [id number], ANATOMIC SPEC PROCEDURES: [id number] (04/06/23) TISSUES: A. PLACENTA, THIRD TRIMESTER (28 + WEEKS) CLINICAL HISTORY SAME; DELIVERED FINAL DIAGNOSIS PLACENTA, DELIVERY: - Slightly immature placenta with three-vessel umbilical cord, 533 g - Marginal cord insertion with magistral chorionic plate vasculature - Circummarginate membrane insertion, 20% - No microscopic umbilical cord or membrane abnormalities, intact maternal floor GROSS DESCRIPTION Received in formalin labeled with the patient's name and medical record number is a 533 ground placenta that measures 16 x 3 cm. The umbilical cord has a marginal insertion,measures 13 cm in length and displays 3 coils per 10 cm. There are 3 blood vessels oncross-section. Membranes are pink-carballo and opaque and show a 20% circummarginate insertion.Chorionic vessels show a magistral distribution pattern. The maternal surface is intactwith complete cotyledons and an adherent 8 cm blood clot. On section no parenchymallesions are identified. Sexologist sections are submitted in 3 cassettes. Technical component performed at [facility],[address] [place] [address], [place] [address] Unless gross only, the diagnosis is based upon microscopic examination.Immunohistochemistry: This test was developed and its performance characteristicsdetermined by this laboratory. It has not been approved nor does it need approvalby the [place] FDA. Appropriate positive and negative controls are reviewed and judgedto be acceptable for performedimmunohistochemistry and/or special stains. This laboratoryis certified under the Clinical Laboratory Improvement Amendments (CLIA-88) as qualified toperform high complexity clinical laboratory testing. CONTINUED ON NEXT PAGE RUN DATE: 04/07/23 [place] - LAB PAGE 2 RUN TIME: 1020 Specimen Inquiry RUN USER: INTERFACE SPEC #: [id number] PATIENT: MICHAEL TRAN #[id number] (Continued) - CLINICAL INFORMATION , 37.6 WEEKS INTRAUTERNE Signed SIGNATURE ON FILE Kristen Reza 04/07/23 1020 END OF REPORT CBC W/AUTO [id number] 07:50:00* Test Item Value Reference Range Interpretation Comme nts WHITE BLOOD CELL (test code = WBC) 15.5 x10 3/uL 4.5-11.0 H RED BLOOD CELL (test code = RBC) 3.52 x10 6/uL 3.54-5.02 L HEMOGLOBIN (test code = HGB) 9.7 g/dL 11.0-15.0 L HEMATOCRIT (test code = HCT) 29.7 % 33.0-45.0 L MEAN CELL VOLUME (test code = MCV) 84.4 fL 81.0-99.0 N MEAN CELL HGB (test code = MCH) 27.6 pg 27.0-33.0 N MEAN CELL HGB CONCETRATION (test code = MCHC) 32.7 g/dL 33.0-37.0 L RED CELL DISTRIBUTION WIDTH CV (test code = RDW) 15.3 % 11.5-14.5 H RED CELL DISTRIBUTION WIDTH SD (test code = RDW-SD) 47.0 fL 37.0-54.0 N PLATELET COUNT (test code = PLT) 151 x10 3/uL 150-400 N IMMATURE PLATELET FRACTION (test code = IPF) 23.4 % 0.9-11.2 H NEUTROPHIL % (test code = NT%) 83.9 % 56.0-77.0 H LYMPHOCYTE % (test code = LY%) 7.0 % 14.0-32.0 L NEUTROPHIL # (test code = NT#) 12.99 x10 3/uL 2.0-7.6 H LYMPHOCYTE # (test code = LY#) 1.09 x10 3/uL 1.0-3.8 N IMMATURE GRANULOCYTE % (test code = IG%) 0.5 % 0.0-2.0 N MONOCYTE % (test code = MO%) 8.5 % 4.8-9.0 N EOSINOPHIL % (test code = EO%) 0.0 % 0.3-3.7 L BASOPHIL % (test code = BA%) 0.1 % 0.0-2.0 N NUCLEATED RBC % (test code = NRBC%) 0.0 % 0-0 N IMMATURE GRANULOCYTE # (test code = IG#) 0.08 x10 3/uL 0.00-0.03 H MONOCYTE # (test code = MO#) 1.32 x10 3/uL 0.1-0.8 H EOSINOPHIL # (test code = EO#) 0.00 x10 3/uL 0.0-0.2 N BASOPHIL # (test code = BA#) 0.01 x10 3/uL 0.0-0.2 N NUCLEATED RBC # (test code = NRBC#) 0.00 x10 3/uL 0.0-0.1 N MANUAL DIFF REQUIRED (test code = MDIFF) NO SLIDE REVIEW ED, CONSISTENT WITH AUTO DIFF. PLT [id number] 07:50:00* Test Item Value Reference Range Interpretation Comme nts PLATELET ESTIMATE (test code = PLTEST) Adequate THOUSAND ADEQUATE PLATELET MORPHOLOGY (test code = PLTMORPH) LARGE PLATELETS COMPREHENSIVE METABOLIC [id number] 06:31:00* Test Item Value Reference Range Interpretation Comme nts SODIUM (test code = NA) 137 mEq/L 134-147 N POTASSIUM (test code = K) 4.2 mEq/L 3.4-5.0 N CHLORIDE (test code = CL) 107 mEq/L 100-108 N CARBON DIOXIDE (test code = CO2) 22 mEq/l 21-33 N ANION GAP (test code = GAP) 12 0-20 N GLUCOSE (test code = GLU) 110 mg/dL 77-141 N NOTE: NEW NORMAL RANGE BLOOD UREA NITROGEN (test code = BUN) < 5 mg/dL 7-25 L NOTE: NEW NORM AL RANGE GLOMERULAR FILTRATION RATE (test code = GFR) 102.9 110-120 L The Glomerular Filtration Rate is a calculated parameterbased on serum Creatinine, patient age and sex. GFR valuesless than 60 mL/min/1.73 square meters are indicative ofChronic Kidney Disease. Values less than 15 mL/min/1.73square meters indicate Kidney failure. The calculation forGFR is based on the CKD-EPI (2020) calculation. This formulais race indifferent and is the recommended formula for GFRby the National Kidney Foundation for Adults.The GFR will not calculate if the sex is unknown or if thepatient's age is <18 years. CREATININE (test code = CREAT) 0.8 mg/dL 0.6-1.3 N TOTAL PROTEIN (test code = PROT) 5.2 g/dL 6.4-8.2 L ALBUMIN (test code = ALB) 2.20 g/dL 3.4-5.0 L CALCIUM (test code = CA) 8.3 mg/dL 8.0-10.5 N BILIRUBIN TOTAL (test code = BILT) 0.90 mg/dL 0.0-1.0 N SGOT/AST (test code = AST) 36 IUnit/L 8-34 H NOTE: NEW NORMAL RANGE SGPT/ALT (test code = ALT) 47 IUnit/L 10-49 NOTE: NEW NORMAL RANGE ALKALINE PHOSPHATASE TOTAL (test code = ALKP) 137 IUnit/L 20-125 H CORD VENOUS BLOOD [id number] 16:19:00* Test Item Value Reference Range Interpretation Comme nts CORD VENOUS PH (test code = PHCV) 7.36 7.25-7.45 N CORD VENOUS PCO2 (test code = PCO2CV) 40 mmHg 27-49 N CORD VENOUS PO2 (test code = PO2CV) 36 mmHg 17-41 N CORD VENOUS HCO3 (test code = HCO3CV) 22.6 MMOL/L 12-28 N CORD VENOUS BASE EXCESS (shira t code = BEXCV) -2.8 mmol/L -8.0-0.00 N CORD VENOUS 02 SAT (test cod e = O2SCV) 67 % CORD ARTERIAL BLOOD [id number] 16:19:00* Test Item Value Reference Range Interpretation Comme nts CORD BLOOD PH (test code = PH/C) 7.31 7.18-7.38 N CORD BLOOD PCO2 (test code = PCO2/C) 49 mmHg 32-66 N CORD BLOOD PO2 (test code = PO2/C) 20 mmHg 6-30 N CORD BLOOD HCO3 (test code = HCO3/C) 25 mmol/L 17-27 N BASE EXCESS CORD (test code = GEORGE/C) -1.5 mmol/L -8.0-0.0 N O2 SATURATION (test code = O2S/C) 28 % 72-77 L CBC W/AUTO [id number] 11:33:00* Test Item Value Reference Range Interpretation Comme nts WHITE BLOOD CELL (test code = WBC) 5.8 x10 3/uL 4.5-11.0 N RED BLOOD CELL (test code = RBC) 4.11 x10 6/uL 3.54-5.02 N HEMOGLOBIN (test code = HGB) 11.2 g/dL 11.0-15.0 N HEMATOCRIT (test code = HCT) 35.1 % 33.0-45.0 N MEAN CELL VOLUME (test code = MCV) 85.4 fL 81.0-99.0 N MEAN CELL HGB (test code = MCH) 27.3 pg 27.0-33.0 N MEAN CELL HGB CONCETRATION (test code = MCHC) 31.9 g/dL 33.0-37.0 L RED CELL DISTRIBUTION WIDTH CV (test code = RDW) 15.1 % 11.5-14.5 H RED CELL DISTRIBUTION WIDTH SD (test code = RDW-SD) 47.0 fL 37.0-54.0 N PLATELET COUNT (test code = PLT) 179 x10 3/uL 150-400 N IMMATURE PLATELET FRACTION (test code = IPF) 20.1 % 0.9-11.2 H MEAN PLATELET VOLUME (test code = MPV) 13.1 fL 7.0-9.0 H NEUTROPHIL % (test code = NT%) 60.9 % 56.0-77.0 N IMMATURE GRANULOCYTE % (test code = IG%) 0.5 % 0.0-2.0 N LYMPHOCYTE % (test code = LY%) 26.0 % 14.0-32.0 N MONOCYTE % (test code = MO%) 11.0 % 4.8-9.0 H EOSINOPHIL % (test code = EO%) 1.4 % 0.3-3.7 N BASOPHIL % (test code = BA%) 0.2 % 0.0-2.0 N NUCLEATED RBC % (test code = NRBC%) 0.0 % 0-0 N NEUTROPHIL # (test code = NT#) 3.54 x10 3/uL 2.0-7.6 N IMMATURE GRANULOCYTE # (test code = IG#) 0.03 x10 3/uL 0.00-0.03 N LYMPHOCYTE # (test code = LY#) 1.51 x10 3/uL 1.0-3.8 N MONOCYTE # (test code = MO#) 0.64 x10 3/uL 0.1-0.8 N EOSINOPHIL # (test code = EO#) 0.08 x10 3/uL 0.0-0.2 N BASOPHIL # (test code = BA#) 0.01 x10 3/uL 0.0-0.2 N NUCLEATED RBC # (test code = NRBC#) 0.00 x10 3/uL 0.0-0.1 N MANUAL DIFF REQUIRED (test code = MDIFF) NO SLIDE REVIEW ED, CONSISTENT WITH AUTO DIFF. LARGE AND GIANT PLTS SEEN RAPID PLASMA [id number] 10:05:00* Test Item Value Reference Range Interpretation Comme nts RAPID PLASMA REAGIN (test co de = RPR) NONREACTIVE NONREACTIVE AG HEPATITIS B [id number] 10:05:00* Test Item Value Reference Range Interpretation Comme nts AG HEPATITIS B SURFACE (test code = HBSAG) NON REACTIVE INDEX NonReactive AB HIV 1 10:05:00* Test Item Value Reference Range Interpretation Comme nts AB HIV 1 2 (test code = BIT71SC) Nonreactive Nonreactive AB RUBELLA [id number] 08:13:00* Test Item Value Reference Range Interpretation Comme nts AB RUBELLA IGG (test code = RUBGAB) 4.41 index See_Comment Non-immune <0.90 Equivocal 0.90 - 0.99 Immune >0.99Performed At: [id number] [place], [place] [id number] Raj Doran MD Ph:[phone] [Automated message] The system which generated this result transmitted reference range: Immune >0.99. The reference range was not used to interpret this result as normal/abnormal. CBC W/AUTO [id number] 06:31:00* Test Item Value Reference Range Interpretation Comme nts WHITE BLOOD CELL (test code = WBC) 5.7 x10 3/uL 4.5-11.0 N RED BLOOD CELL (test code = RBC) 3.96 x10 6/uL 3.54-5.02 N HEMOGLOBIN (test code = HGB) 11.0 g/dL 11.0-15.0 N HEMATOCRIT (test code = HCT) 33.6 % 33.0-45.0 N MEAN CELL VOLUME (test code = MCV) 84.8 fL 81.0-99.0 N MEAN CELL HGB (test code = MCH) 27.8 pg 27.0-33.0 N MEAN CELL HGB CONCETRATION (test code = MCHC) 32.7 g/dL 33.0-37.0 L RED CELL DISTRIBUTION WIDTH CV (test code = RDW) 15.4 % 11.5-14.5 H RED CELL DISTRIBUTION WIDTH SD (test code = RDW-SD) 47.9 fL 37.0-54.0 N PLATELET COUNT (test code = PLT) 142 x10 3/uL 150-400 L MEAN PLATELET VOLUME (test code = MPV) 12.2 fL 7.0-9.0 H NEUTROPHIL % (test code = NT%) 63.2 % 56.0-77.0 N IMMATURE GRANULOCYTE % (test code = IG%) 0.3 % 0.0-2.0 N LYMPHOCYTE % (test code = LY%) 27.1 % 14.0-32.0 N MONOCYTE % (test code = MO%) 8.0 % 4.8-9.0 N EOSINOPHIL % (test code = EO%) 1.2 % 0.3-3.7 N BASOPHIL % (test code = BA%) 0.2 % 0.0-2.0 N NUCLEATED RBC % (test code = NRBC%) 0.0 % 0-0 N NEUTROPHIL # (test code = NT#) 3.61 x10 3/uL 2.0-7.6 N IMMATURE GRANULOCYTE # (test code = IG#) 0.02 x10 3/uL 0.00-0.03 N LYMPHOCYTE # (test code = LY#) 1.55 x10 3/uL 1.0-3.8 N MONOCYTE # (test code = MO#) 0.46 x10 3/uL 0.1-0.8 N EOSINOPHIL # (test code = EO#) 0.07 x10 3/uL 0.0-0.2 N BASOPHIL # (test code = BA#) 0.01 x10 3/uL 0.0-0.2 N NUCLEATED RBC # (test code = NRBC#) 0.00 x10 3/uL 0.0-0.1 N MANUAL DIFF REQUIRED (test code = MDIFF) NO SLIDE REVIEW ED, CONSISTENT WITH AUTO DIFF. COMPREHENSIVE METABOLIC [id number] 06:00:00* Test Item Value Reference Range Interpretation Comme nts SODIUM (test code = NA) 139 mEq/L 134-147 N POTASSIUM (test code = K) 3.7 mEq/L 3.4-5.0 N CHLORIDE (test code = CL) 109 mEq/L 100-108 H CARBON DIOXIDE (test code = CO2) 22 mEq/l 21-33 N ANION GAP (test code = GAP) 11 0-20 N GLUCOSE (test code = GLU) 83 mg/dL 77-141 N NOTE: NEW NORMAL RANGE BLOOD UREA NITROGEN (test code = BUN) < 5 mg/dL 7-25 L NOTE: NEW NORM AL RANGE GLOMERULAR FILTRATION RATE (test code = GFR) 120.7 110-120 H The Glomerular Filtration Rate is a calculated parameterbased on serum Creatinine, patient age and sex. GFR valuesless than 60 mL/min/1.73 square meters are indicative ofChronic Kidney Disease. Values less than 15 mL/min/1.73square meters indicate Kidney failure. The calculation forGFR is based on the CKD-EPI (202) calculation. This formulais race indifferent and is the recommended formula for GFRby the National Kidney Foundation for Adults.The GFR will not calculate if the sex is unknown or if thepatient's age is <18 years. CREATININE (test code = CREAT) 0.7 mg/dL 0.6-1.3 N TOTAL PROTEIN (test code = PROT) 5.9 g/dL 6.4-8.2 L ALBUMIN (test code = ALB) 2.50 g/dL 3.4-5.0 L CALCIUM (test code = CA) 8.7 mg/dL 8.0-10.5 N BILIRUBIN TOTAL (test code = BILT) 0.60 mg/dL 0.0-1.0 N SGOT/AST (test code = AST) 74 IUnit/L 8-34 H NOTE: NEW NORMAL RANGE SGPT/ALT (test code = ALT) 100 IUnit/L 10-49 H NOTE: NEW NORMAL RANGE ALKALINE PHOSPHATASE TOTAL (test code = ALKP) 160 IUnit/L 20-125 H RAPID PLASMA [id number] 10:06:00* Test Item Value Reference Range Interpretation Comme nts RAPID PLASMA REAGIN (test co de = RPR) NONREACTIVE NONREACTIVE ACUTE HEPATITIS [id number] 10:06:00* Test Item Value Reference Range Interpretation Comme nts AB HEPATITIS A IGM (test code = HAVMAB) NON REACTIVE INDEX NON REACT. AG HEPATITIS B SURFACE (test code = HBSAG) NON REACTIVE INDEX NonReactive AB HEPATITIS B CORE IGM (test code = HBCMAB) NON REACTIVE INDEX NON REACT. AB HEPATITIS C (test code = HCVAB) NON REACTIVE INDEX NON REACT. AB HIV 1 10:06:00* Test Item Value Reference Range Interpretation Comme nts AB HIV 1 2 (test code = OVQ95QN) Nonreactive Nonreactive CBC W/AUTO [id number] 07:16:00* Test Item Value Reference Range Interpretation Comme nts WHITE BLOOD CELL (test code = WBC) 5.3 x10 3/uL 4.5-11.0 N RED BLOOD CELL (test code = RBC) 4.04 x10 6/uL 3.54-5.02 N HEMOGLOBIN (test code = HGB) 11.1 g/dL 11.0-15.0 N HEMATOCRIT (test code = HCT) 34.1 % 33.0-45.0 N MEAN CELL VOLUME (test code = MCV) 84.4 fL 81.0-99.0 N MEAN CELL HGB (test code = MCH) 27.5 pg 27.0-33.0 N MEAN CELL HGB CONCETRATION (test code = MCHC) 32.6 g/dL 33.0-37.0 L RED CELL DISTRIBUTION WIDTH CV (test code = RDW) 15.5 % 11.5-14.5 H RED CELL DISTRIBUTION WIDTH SD (test code = RDW-SD) 47.1 fL 37.0-54.0 N PLATELET COUNT (test code = PLT) 137 x10 3/uL 150-400 L MEAN PLATELET VOLUME (test code = MPV) 11.9 fL 7.0-9.0 H NEUTROPHIL % (test code = NT%) 63.6 % 56.0-77.0 N IMMATURE GRANULOCYTE % (test code = IG%) 0.4 % 0.0-2.0 N LYMPHOCYTE % (test code = LY%) 27.1 % 14.0-32.0 N MONOCYTE % (test code = MO%) 7.2 % 4.8-9.0 N EOSINOPHIL % (test code = EO%) 1.3 % 0.3-3.7 N BASOPHIL % (test code = BA%) 0.4 % 0.0-2.0 N NUCLEATED RBC % (test code = NRBC%) 0.0 % 0-0 N NEUTROPHIL # (test code = NT#) 3.35 x10 3/uL 2.0-7.6 N IMMATURE GRANULOCYTE # (test code = IG#) 0.02 x10 3/uL 0.00-0.03 N LYMPHOCYTE # (test code = LY#) 1.43 x10 3/uL 1.0-3.8 N MONOCYTE # (test code = MO#) 0.38 x10 3/uL 0.1-0.8 N EOSINOPHIL # (test code = EO#) 0.07 x10 3/uL 0.0-0.2 N BASOPHIL # (test code = BA#) 0.02 x10 3/uL 0.0-0.2 N NUCLEATED RBC # (test code = NRBC#) 0.00 x10 3/uL 0.0-0.1 N MANUAL DIFF REQUIRED (test code = MDIFF) NO SLIDE REVIEW ED, CONSISTENT WITH AUTO DIFF. COMPREHENSIVE METABOLIC [id number] 06:28:00* Test Item Value Reference Range Interpretation Comme nts SODIUM (test code = NA) 139 mEq/L 134-147 N POTASSIUM (test code = K) 3.8 mEq/L 3.4-5.0 N CHLORIDE (test code = CL) 109 mEq/L 100-108 H CARBON DIOXIDE (test code = CO2) 22 mEq/l 21-33 N ANION GAP (test code = GAP) 12 0-20 N GLUCOSE (test code = GLU) 84 mg/dL 77-141 N NOTE: NEW NORMAL RANGE BLOOD UREA NITROGEN (test code = BUN) < 5 mg/dL 7-25 L NOTE: NEW NORM AL RANGE GLOMERULAR FILTRATION RATE (test code = GFR) 120.7 110-120 H The Glomerular Filtration Rate is a calculated parameterbased on serum Creatinine, patient age and sex. GFR valuesless than 60 mL/min/1.73 square meters are indicative ofChronic Kidney Disease. Values less than 15 mL/min/1.73square meters indicate Kidney failure. The calculation forGFR is based on the CKD-EPI (2021) calculation. This formulais race indifferent and is the recommended formula for GFRby the National Kidney Foundation for Adults.The GFR will not calculate if the sex is unknown or if thepatient's age is <18 years. CREATININE (test code = CREAT) 0.7 mg/dL 0.6-1.3 N TOTAL PROTEIN (test code = PROT) 6.0 g/dL 6.4-8.2 L ALBUMIN (test code = ALB) 2.60 g/dL 3.4-5.0 L CALCIUM (test code = CA) 8.7 mg/dL 8.0-10.5 N BILIRUBIN TOTAL (test code = BILT) 0.60 mg/dL 0.0-1.0 N SGOT/AST (test code = AST) 84 IUnit/L 8-34 H NOTE: NEW NORMAL RANGE SGPT/ALT (test code = ALT) 107 IUnit/L 10-49 H NOTE: NEW NORMAL RANGE ALKALINE PHOSPHATASE TOTAL (test code = ALKP) 166 IUnit/L 20-125 H GLUCOSE [id number] 08:35:00* Test Item Value Reference Range Interpretation Comme nts GLUCOSE BEDSIDE (test code = GLUBED) 77 MG/DL 70-110 N Performed by cer tified cold header operator at [facility] HEPATIC FUNCTION [id number] 06:31:00* Test Item Value Reference Range Interpretation Comme nts TOTAL PROTEIN (test code = PROT) 5.8 g/dL 6.4-8.2 L ALBUMIN (test code = ALB) 2.60 g/dL 3.4-5.0 L BILIRUBIN TOTAL (test code = BILT) 0.60 mg/dL 0.0-1.0 N BILIRUBIN DIRECT (test code = BILD) 0.20 MG/DL 0.1-0.3 N NOTE: NEW NORMAL RANGE BILIRUBIN INDIRECT (test code = BILIND) 0.40 MG/DL SGOT/AST (test code = AST) 107 IUnit/L 8-34 H NOTE: NEW NORMAL RANGE SGPT/ALT (test code = ALT) 119 IUnit/L 10-49 H NOTE: NEW NORMAL RANGE ALKALINE PHOSPHATASE TOTAL (test code = ALKP) 170 IUnit/L 20-125 H COMPREHENSIVE METABOLIC [id number] 06:05:00* Test Item Value Reference Range Interpretation Comme nts SODIUM (test code = NA) 140 mEq/L 134-147 N POTASSIUM (test code = K) 3.7 mEq/L 3.4-5.0 N CHLORIDE (test code = CL) 109 mEq/L 100-108 H CARBON DIOXIDE (test code = CO2) 21 mEq/l 21-33 N ANION GAP (test code = GAP) 14 0-20 N GLUCOSE (test code = GLU) 92 mg/dL 77-141 N NOTE: NEW NORMAL RANGE BLOOD UREA NITROGEN (test code = BUN) < 5 mg/dL 7-25 L NOTE: NEW NORM AL RANGE GLOMERULAR FILTRATION RATE (test code = GFR) 120.7 110-120 H The Glomerular Filtration Rate is a calculated parameterbased on serum Creatinine, patient age and sex. GFR valuesless than 60 mL/min/1.73 square meters are indicative ofChronic Kidney Disease. Values less than 15 mL/min/1.73square meters indicate Kidney failure. The calculation forGFR is based on the CKD-EPI (202) calculation. This formulais race indifferent and is the recommended formula for GFRby the National Kidney Foundation for Adults.The GFR will not calculate if the sex is unknown or if thepatient's age is <18 years. CREATININE (test code = CREAT) 0.7 mg/dL 0.6-1.3 N TOTAL PROTEIN (test code = PROT) 5.7 g/dL 6.4-8.2 L ALBUMIN (test code = ALB) 2.60 g/dL 3.4-5.0 L CALCIUM (test code = CA) 8.6 mg/dL 8.0-10.5 N BILIRUBIN TOTAL (test code = BILT) 0.70 mg/dL 0.0-1.0 N SGOT/AST (test code = AST) 108 IUnit/L 8-34 H NOTE: NEW NORMAL RANGE SGPT/ALT (test code = ALT) 103 IUnit/L 10-49 H NOTE: NEW NORMAL RANGE ALKALINE PHOSPHATASE TOTAL (test code = ALKP) 162 IUnit/L 20-125 H CBC W/AUTO [id number] 05:18:00* Test Item Value Reference Range Interpretation Comme nts WHITE BLOOD CELL (test code = WBC) 5.1 x10 3/uL 4.5-11.0 N RED BLOOD CELL (test code = RBC) 3.85 x10 6/uL 3.54-5.02 N HEMOGLOBIN (test code = HGB) 10.6 g/dL 11.0-15.0 L HEMATOCRIT (test code = HCT) 32.6 % 33.0-45.0 L MEAN CELL VOLUME (test code = MCV) 84.7 fL 81.0-99.0 N MEAN CELL HGB (test code = MCH) 27.5 pg 27.0-33.0 N MEAN CELL HGB CONCETRATION (test code = MCHC) 32.5 g/dL 33.0-37.0 L RED CELL DISTRIBUTION WIDTH CV (test code = RDW) 15.6 % 11.5-14.5 H RED CELL DISTRIBUTION WIDTH SD (test code = RDW-SD) 48.1 fL 37.0-54.0 N PLATELET COUNT (test code = PLT) 144 x10 3/uL 150-400 L MEAN PLATELET VOLUME (test c ode = MPV) 12.3 fL 7.0-9.0 H NEUTROPHIL % (test code = NT%) 62.7 % 56.0-77.0 N IMMATURE GRANULOCYTE % (test code = IG%) 0.4 % 0.0-2.0 N LYMPHOCYTE % (test code = LY%) 29.6 % 14.0-32.0 N MONOCYTE % (test code = MO%) 6.5 % 4.8-9.0 N EOSINOPHIL % (test code = EO%) 0.6 % 0.3-3.7 N BASOPHIL % (test code = BA%) 0.2 % 0.0-2.0 N NUCLEATED RBC % (test code = NRBC%) 0.0 % 0-0 N NEUTROPHIL # (test code = NT#) 3.17 x10 3/uL 2.0-7.6 N IMMATURE GRANULOCYTE # (test code = IG#) 0.02 x10 3/uL 0.00-0.03 N LYMPHOCYTE # (test code = LY#) 1.50 x10 3/uL 1.0-3.8 N MONOCYTE # (test code = MO#) 0.33 x10 3/uL 0.1-0.8 N EOSINOPHIL # (test code = EO#) 0.03 x10 3/uL 0.0-0.2 N BASOPHIL # (test code = BA#) 0.01 x10 3/uL 0.0-0.2 N NUCLEATED RBC # (test code = NRBC#) 0.00 x10 3/uL 0.0-0.1 N [id number] 01:12:00* Test Item Value Reference Range Interpretation Comme nts LIPASE (test code = LIP) 52 U/L 13-57 N COMPREHENSIVE METABOLIC [id number] 01:12:00* Test Item Value Reference Range Interpretation Comme nts SODIUM (test code = NA) 138 mEq/L 134-147 N POTASSIUM (test code = K) 4.2 mEq/L 3.4-5.0 N CHLORIDE (test code = CL) 107 mEq/L 100-108 N CARBON DIOXIDE (test code = CO2) 20 mEq/l 21-33 L ANION GAP (test code = GAP) 15 0-20 N GLUCOSE (test code = GLU) 92 mg/dL 77-141 N NOTE: NEW NORMAL RANGE BLOOD UREA NITROGEN (test code = BUN) 5 mg/dL 7-25 L NOTE: NEW NORM AL RANGE GLOMERULAR FILTRATION RATE (test code = GFR) 120.7 110-120 H The Glomerular Filtration Rate is a calculated parameterbased on serum Creatinine, patient age and sex. GFR valuesless than 60 mL/min/1.73 square meters are indicative ofChronic Kidney Disease. Values less than 15 mL/min/1.73square meters indicate Kidney failure. The calculation forGFR is based on the CKD-EPI (202) calculation. This formulais race indifferent and is the recommended formula for GFRby the National Kidney Foundation for Adults.The GFR will not calculate if the sex is unknown or if thepatient's age is <18 years. CREATININE (test code = CREAT) 0.7 mg/dL 0.6-1.3 N TOTAL PROTEIN (test code = PROT) 6.9 g/dL 6.4-8.2 N ALBUMIN (test code = ALB) 3.00 g/dL 3.4-5.0 L CALCIUM (test code = CA) 8.5 mg/dL 8.0-10.5 N BILIRUBIN TOTAL (test code = BILT) 0.70 mg/dL 0.0-1.0 N SGOT/AST (test code = AST) 127 IUnit/L 8-34 H NOTE: NEW NORMAL RANGE SGPT/ALT (test code = ALT) 116 IUnit/L 10-49 H NOTE: NEW NORMAL RANGE ALKALINE PHOSPHATASE TOTAL (test code = ALKP) 188 IUnit/L 20-125 H [id number] 01:12:00* Test Item Value Reference Range Interpretation Comme nts AMYLASE (test code = MAURO) 63 UNITS/L 30-118 N Note change in REFERENCE RANGE due to change in REAGENT. - US ABDOMEN [id number] 01:11:00 [facility] 1995 Sex: F Name: MICHAEL [facility] : 1995 Age/S: 27 / F [address] [place] [address] Unit #: [id number] Loc: [place] [address] Phys: Ciara Arthur DO Acct: [id number] Dis Date: Status: REG ER PHONE #: [phone] Exam Date: 03/27/2023 0037 FAX #: [phone] Reason: EPIGASTRIC PAIN EXAMS: CPT CODE: [id number] US ABDOMEN LTD [id number] Examination: Ultrasound abdomen limited Location code: H60 Comparison: None Discussion: Clinical history is remarkable for epigastric pain. Liver measures 15 cm in length. Hepatopedal flow is identified in the portal vein. Gallstones identified in the gallbladder. Gallbladder wall measures 2 mm. Common bile duct measures 2 mm. Right kidney measures 10.1 x 6.6 x 6.1 cm. Hydronephrosis is identified in the right kidney. No echogenic calculi identified. Impression: 1. Cholelithiasis. 2. Right-sided hydronephrosis. at 0111 Reported and signed by: Nikhil Irene M.D. CC: Ciara Arthur DO Technologist: Lacie Menchaca RDMS(AB)(OB) Trnscb Date/Time: 03/27/2023 (011) [id number] Orig Print D/T: S: 1 05/27/2022 (0114) Probe: PAGE 1 Signed ReportCBC W/AUTO [id number] 00:48:00* Test Item Value Reference Range Interpretation Comme nts WHITE BLOOD CELL (test code = WBC) 5.9 x10 3/uL 4.5-11.0 N RED BLOOD CELL (test code = RBC) 4.26 x10 6/uL 3.54-5.02 N HEMOGLOBIN (test code = HGB) 11.8 g/dL 11.0-15.0 N HEMATOCRIT (test code = HCT) 36.2 % 33.0-45.0 N MEAN CELL VOLUME (test code = MCV) 85.0 fL 81.0-99.0 N MEAN CELL HGB (test code = MCH) 27.7 pg 27.0-33.0 N MEAN CELL HGB CONCETRATION (test code = MCHC) 32.6 g/dL 33.0-37.0 L RED CELL DISTRIBUTION WIDTH CV (test code = RDW) 15.7 % 11.5-14.5 H RED CELL DISTRIBUTION WIDTH SD (test code = RDW-SD) 49.0 fL 37.0-54.0 N PLATELET COUNT (test code = PLT) 182 x10 3/uL 150-400 N IMMATURE PLATELET FRACTION (test code = IPF) 16.2 % 0.9-11.2 H MEAN PLATELET VOLUME (test c ode = MPV) 13.5 fL 7.0-9.0 H NEUTROPHIL % (test code = NT%) 64.6 % 56.0-77.0 N IMMATURE GRANULOCYTE % (test code = IG%) 0.7 % 0.0-2.0 N LYMPHOCYTE % (test code = LY%) 28.0 % 14.0-32.0 N MONOCYTE % (test code = MO%) 5.9 % 4.8-9.0 N EOSINOPHIL % (test code = EO%) 0.5 % 0.3-3.7 N BASOPHIL % (test code = BA%) 0.3 % 0.0-2.0 N NUCLEATED RBC % (test code = NRBC%) 0.0 % 0-0 N NEUTROPHIL # (test code = NT#) 3.82 x10 3/uL 2.0-7.6 N IMMATURE GRANULOCYTE # (test code = IG#) 0.04 x10 3/uL 0.00-0.03 H LYMPHOCYTE # (test code = LY#) 1.66 x10 3/uL 1.0-3.8 N MONOCYTE # (test code = MO#) 0.35 x10 3/uL 0.1-0.8 N EOSINOPHIL # (test code = EO#) 0.03 x10 3/uL 0.0-0.2 N BASOPHIL # (test code = BA#) 0.02 x10 3/uL 0.0-0.2 N NUCLEATED RBC # (test code = NRBC#) 0.00 x10 3/uL 0.0-0.1 N URINALYSIS [id number] 00:48:00* Test Item Value Reference Range Interpretation Comme nts UA COLOR (test code = COLU) YELLOW YEL/STRAW UA APPEARANCE (test code = APPU) CLEAR CLEAR UA GLUCOSE DIPSTICK (test co de = DGLUU) NEGATIVE NEGATIVE UA BILIRUBIN DIPSTICK (test code = BILU) NEGATIVE NEGATIVE UA KETONE DIPSTICK (test cod e = KETU) TRACE NEGATIVE A UA SPECIFIC GRAVITY (test co de = SGU) 1.003 1.005-1.030 L UA BLOOD DIPSTICK (test code = PABLO) NEGATIVE NEGATIVE UA PH DIPSTICK (test code = MICHELE) 6.0 5.0-7.0 N UA PROTEIN DIPSTICK (test co de = PROU) NEGATIVE NEGATIVE UA UROBILINIOGEN DIPSTICK (test code = URO) 0.2 mg/dL 0.2-1.0 UA NITRITE DIPSTICK (test co de = CAMPOS) NEGATIVE NEGATIVE UA LEUKOCYTE ESTERASE DIPSTI CK (test code = LEUU) NEGATIVE NEGATIVE UA RBC (test code = RBCU) 0-3 RBC/HPF 0-3 UA WBC NO REFLEX (test code = WBCUCL) 0-3 WBC/HPF 0-3 UA BACTERIA (test code = BACU) NONE SEEN /HPF NONE SEEN UA SQUAMOUS CELLS (test code = SQU) 0-5 /HPF NONE SEEN GLUCOSE TOLERANCE, 3 HR, GESTATIONAL, DIAGNOSTIC, 100 GM [id number] 16:25:22 * Test Item Value Reference Range Interpretation Comme nts GLUCOSE, FASTING (test code = 65424) TEST NOT PERFORMED MG/DL <95 Unable to perform testing, specimen not received.Charges adjusted as applicable. GLUCOSE, 1 HR (test code = ) 180 MG/DL <180 H GLUCOSE, 2 HR (test code = ) 193 MG/DL <155 H GLUCOSE, 3 HR (test code = ) 164 MG/DL <140 H CRITERIA FOR GESTATIONAL DIABETES SAMPLE BANCROFT/TAM[facility] [place] DIABETES DATA GROUP FASTING < 95 MG/DL 105 MG/DL 1 HOUR < 180 MG/DL 190 MG/DL 2 HOURS < 155 MG/DL 165 MG/DL 3 HOURS < 140 MG/DL 145 MG/DL (FROM ACOG PRACTICE BULLETIN NUMBER 2000) UNLESS OTHERWISE INDICATED, ALL TESTING PERFORMED AT [facility] [address] [place] [address] [employer]: TOM GAO M.D. CLIA NUMBER [id number] [place]. [id number] DO NOT HAVE FASTING RCVDGLUCOSE, 1 HR, GESTATIONAL SCREEN, 50 GM [id number] 08:18:52* Test Item Value Reference Range Interpretation Comme nts GLUCOSE 1 HR POST 50 GM (test code = 2005) 147 MG/DL <140 H UNLESS OTHERWISE INDICATED, ALL TESTING PERFORMED AT [facility] [address] [place] [address] [employer]: TOM GAO M.D. CLIA NUMBER [id number] [place]. [id number] UA RFLX MICR CULT IF [id number] 09:43:00* Test Item Value Reference Range Interpretation Comme nts UA COLOR (test code = COLU) YELLOW YELLOW UA APPEARANCE (test code = APPU) CLEAR CLEAR UA GLUCOSE DIPSTICK (test co de = DGLUU) NEGATIVE NEG UA BILIRUBIN DIPSTICK (test code = BILU) NEGATIVE NEG UA KETONE DIPSTICK (test cod e = KETU) NEGATIVE NEG UA SPECIFIC GRAVITY (test co de = SGU) 1.008 1.001-1.035 N UA BLOOD DIPSTICK (test code = PABLO) NEG NEG UA PH DIPSTICK (test code = MICHELE) 7.0 5-9 UA PROTEIN DIPSTICK (test co de = PROU) NEGATIVE NEG UA UROBILINIOGEN DIPSTICK (test code = URO) NEGATIVE mg/dL NEG UA NITRITE DIPSTICK (test co de = CAMPOS) NEG NEG UA LEUKOCYTE ESTERASE DIPSTI CK (test code = LEUU) NEG NEG UA WBC (test code = WBCU) 0-2 #/hpf NONE SEEN UA EPITHELIAL CELLS (test co de = EPIU) RARE #/HPF RARE-FEW UA RBC (test code = RBCU) 0-2 #/hpf NONE SEEN UA BACTERIA (test code = BACU) RARE /HPF RARE-FEW UA MUCUS (test code = MUCU) RARE NONE SEEN Indication for culture: Suprapubic PainSpecimen Description: CLEAN CATCHUR HCG [id number] 09:43:00* Test Item Value Reference Range Interpretation Comme nts UR HCG QUAL (test code = HCGQLU) POSITIVE Indication for culture: Suprapubic PainSpecimen Description: CLEAN CATCHCULTURE, [id number] 09:06:35SPECIMEN NUMBER: [id number] CULTURE, URINE SPECIMEN NUMBER: [id number] SPECIMEN COMMENT: URINE SOURCE: URINE REPORT STATUS: FINAL FINAL REPORT: 12/31/2022 50-100,000 CFU/ML UROGENITAL ADDISON PRESENT NO COMMON PATHOGENSDRUG ABUSE SCREEN 10 REFLEX [id number] 07:38:28* Test Item Value Reference Range Interpretation Comme nts AMPHETAMINES (test code = 3201) NEGATIVE NEGATIVE BARBITURATES (test code = 3202) NEGATIVE NEGATIVE BENZODIAZEPINES (test code = 3203) NEGATIVE NEGATIVE CANNABINOIDS (test code = 3204) NEGATIVE NEGATIVE COCAINE METABOLITE (test code = 3205) NEGATIVE NEGATIVE OPIATES (test code = 3209) NEGATIVE NEGATIVE OXYCODONE (test code = 66830) NEGATIVE NEGATIVE PHENCYCLIDINE (test code = 3210) NEGATIVE NEGATIVE METHADONE (test code = 3207) NEGATIVE NEGATIVE BUPRENORPHINE (test code = 99990) NEGATIVE NEGATIVE SOURCE (test code = 631585) URINE SEE BELOW FO R THRESHOLDS AND IMPORTANT METHOD NOTES ANALYTE SCREENING CUTOFF CONFIRMATORY CUTOFF AMPHETAMINES 500 NG/ML 100 NG/MLBARBITURATES 200 NG/ML 100 NG/MLBENZODIAZEPINES 200 NG/ML 100 NG/MLCANNABINOIDS (THC) 20 NG/ML 15 NG/MLCOCAINE METABOLITES 150 NG/ML 100 NG/MLOPIATE METABOLITES 300 NG/ML 100 NG/MLOXYCODONE 100 NG/ML 100 NG/MLPHENCYCLIDINE (PCP) 25 NG/ML 25 NG/MLMETHADONE 300 NG/ML 100 NG/MLBUPRENORPHINE 5 NG/ML 5 NG/ML NOTE: Screening methodology is qualitative Enzyme Immunoassay.The screening method may be less sensitive for certain medicationsincluding clonazepam and lorazepam in the benzodiazepine assay andtramadol or fentanyl in the opiate assay, amongst others. Patientcompliance, hydration status, timing and dose of medications, drugabsorption and specimen quality may affect screening assay.For clinical discrepancies, consider directed testing for specificcompounds or contact the laboratory within specimen stability toforward for confirmatory testing. This test is specified for medicalpurposes only. It is not valid for forensic use. UNLESS OTHERWISE INDICATED, ALL TESTING PERFORMED AT [facility] [address] [place] [address] [employer]: TOM GAO M.D. CLIA NUMBER [id number] [place]. [id number] RPR REFLEX TO T. PALLIDUM - [id number] 05:33:34* Test Item Value Reference Range Interpretation Comme nts RPR (test code = 72376) NON-REACTIVE NON-REACTIVE RPR TITER (test code = 3500) NOT INDIC. TITER NOT INDIC. CBC W/AUTO DIFF WITH [id number] 05:04:08* Test Item Value Reference Range Interpretation Comme nts WBC (test code = 1001) 6.2 K/UL 3.5-11.0 RBC (test code = 1002) 3.83 M/UL 3.80-5.40 HEMOGLOBIN (test code = 1003) 11.0 G/DL 11.5-15.5 L HEMATOCRIT (test code = 1004) 33.7 % 34.0-45.0 L MCV (test code = 1005) 88.0 fL 80.0-99.0 MCH (test code = 1006) 28.7 PG 25.0-33.0 MCHC (test code = 1007) 32.6 G/DL 31.0-36.0 RDW (test code = 1038) 13.4 % 11.5-15.0 NEUTROPHILS (test code = 1008) 75.0 % LYMPHOCYTES (test code = 1010) 15.3 % MONOCYTES (test code = 1011) 9.0 % EOSINOPHILS (test code = 1012) 0.3 % BASOPHILS (test code = 1013) 0.2 % IMMATURE GRANULOCYTES (test code = 1036) 0.2 % NUCLEATED RBCS (test code = 1065) 0.0 /100 WBC'S See_Comment [Automated messa ge] The system which generated this result transmitted reference range: 0.0. The reference range was not used to interpret this result as normal/abnormal. PLATELET COUNT (test code = 1015) 248 K/UL 130-400 ABSOLUTE NEUTROPHILS (test code = 1066) 4.64 K/UL 1.50-7.50 ABSOLUTE LYMPHOCYTES (test code = 1067) 0.95 K/UL 1.00-4.00 L ABSOLUTE MONOCYTES (test code = 1068) 0.56 K/UL 0.20-1.00 ABSOLUTE EOSINOPHILS (test code = 1040) 0.02 K/UL 0.00-0.50 ABSOLUTE BASOPHILS (test code = 1069) 0.01 K/UL 0.00-0.20 ABS IMMATURE GRANULOCYTES (test code = 1020) 0.01 K/UL 0.00-0.10 ABS NUCLEATED RBCS (test code = 62224) 0.00 K/UL 0.00-0.11 HIV 1/2 4TH GEN, RFLX [id number] 04:34:38* Test Item Value Reference Range Interpretation Comme nts HIV 1/2 4TH GEN, RFLX CONF ( test code = 3514) NON-REACTIVE NON-REACTIVE UA RFLX MICR CULT IF [id number] 09:55:00* Test Item Value Reference Range Interpretation Comme nts UA COLOR (test code = COLU) STRAW YELLOW UA APPEARANCE (test code = APPU) CLEAR CLEAR UA GLUCOSE DIPSTICK (test co de = DGLUU) NEGATIVE NEG UA BILIRUBIN DIPSTICK (test code = BILU) NEGATIVE NEG UA KETONE DIPSTICK (test cod e = KETU) NEGATIVE NEG UA SPECIFIC GRAVITY (test co de = SGU) 1.005 1.001-1.035 N UA BLOOD DIPSTICK (test code = PABLO) NEG NEG UA PH DIPSTICK (test code = MICHELE) 8.0 5-9 UA PROTEIN DIPSTICK (test co de = PROU) NEGATIVE NEG UA UROBILINIOGEN DIPSTICK (test code = URO) NEGATIVE mg/dL NEG UA NITRITE DIPSTICK (test co de = CAMPOS) NEG NEG UA LEUKOCYTE ESTERASE DIPSTI CK (test code = LEUU) NEG NEG UA WBC (test code = WBCU) 0-2 #/hpf NONE SEEN UA EPITHELIAL CELLS (test co de = EPIU) RARE #/HPF RARE-FEW Indication for culture: Gross HematuriaSpecimen Description: CLEAN CATCHUR HCG [id number] 09:55:00* Test Item Value Reference Range Interpretation Comme nts UR HCG QUAL (test code = HCGQLU) POSITIVE Indication for culture: Gross HematuriaSpecimen Description: CLEAN CATCH Notes Date/Time Note Provider Source 2023-08-16 00:14:00 [id number]:14:00 [facility] ([facility])EMERGENCY PROVIDER REPORTREPORT#:[id number] REPORT STATUS: SignedDATE:08/16/23 TIME: 13 PATIENT: MICHAEL RTAN UNIT #: [id number]#: [id number] ROOM/BED:AGE: 28 SEX: F PCP PHYS: Kaleb Roblero MDSERVICE AUTHOR: Deniz Macias MD * ALL edits or amendments must be made on the electronic/computer document * HPI-Abd Pain F Under 40 Free Text HPI NotesFree Text HPI [id number] female history of several months ago, presented to the emergency department with her family for abdominal pain. Patient reports several months of intermittent right upper quadrant, abdominal pain, epigastric pain, worsens when she eats patient reports a 2 to 3-hour episode of this today after eating. Patient denies fevers, denies nausea or vomiting, denies fevers. Denies chest pain shortness of breath. Does not take any medication. GeneralConfirmed Patient YesPatient Type New patientInitial Greet Date/Time 08/15/232251 PresentationChief Complaint Abdominal painHx Obtained From Patient, Prior medical recordsSudden in Onset? NoOnset Occurred Today, Weeks agoSymptom Duration Since onset, Constant, Waxes and wanesProgression since Onset Intermittent, Waxes and wanesPain/Sev: Onset ModeratePain/Sev: Current Moderate Risk-Abd Pain F Under 40)( Ectopic Risk factors reviewed Review of Systems ROS StatementsAll systems rev neg except as marked. Free Text ROS NotesFree Text ROS NotesReview of systems was performed, pertinent positives and negatives noted in HPI. Past Medical History - AdultStated Complaint ABD PAIN/NEEDS CHOLEAllergiesCoded Allergies:No Known Allergies (04/04/23) Home MedicationsActive ScriptsACETAMINOPHEN/CODEINE (TYLENOL WITH CODEINE #3 300/30 MG) 1 TAB PO Q4H PRN PRN ACUTE PAIN ACETAMINOPHEN/CODEINE (TYLENOL WITH CODEINE #3 300/30 MG) 1 TAB PO Q4H PRN PRN ACUTE PAIN #30 TABS Prov: 04/08/23 Review of Nursing Notes Rapid assess notes revSmoking status for patients 13 years old or older: Never Smoker Physical Exam Vital SignsVital SignsFirst Documented: Result Date Time Pulse Ox 97 08/15 2247 B/P 167/93 08/15 2247 B/P Mean 117 08/15 2247 O2 Delivery Room air 08/15 2247 Temp 37.5 08/15 2247 Pulse 86 08/15 2247 Resp 18 08/15 2247 Last Documented: Result Date Time Pulse Ox 96 08/15 0042 B/P 119/76 08/15 0042 B/P Mean 92 08/15 41 Pulse 64 08/15 004 O2 Delivery Room air 08/15 2247 Temp 37.5 08/15 2247 Resp 18 08/15 2247 Review of Vital Signs Reviewed Interpretation Diagnostics Lab Results InterpretationConsiderations Independ review imaging, Reviewed prior recordsResultsLaboratory Tests 08/15/23 2254:[Embedded Image Not Available]Laboratory Tests: 08/14 08/14 08/14 2301 225 2254Chemistry Sodium (134 - 147 mEq/L) 138 Potassium (3.4 - 5.0 mEq/L) 3.9 Chloride (100 - 108 mEq/L) 108 Carbon Dioxide (21 - 33 mEq/l) 23 Anion Gap (0 - 20) 11 BUN (7 - 25 mg/dL) 11 Creatinine (0.6 - 1.3 mg/dL) 1.1 Glomerular Filtr Rate (110 - 120) 69.8 L Glucose (77 - 141 mg/dL) 113 Calcium (8.0 - 10.5 mg/dL) 8.7 Magnesium (1.6 - 2.6 mg/dL) 1.84 Total Bilirubin (0.0 - 1.0 mg/dL) 0.80 Direct Bilirubin (0.1 - 0.3 MG/DL) 0.20 Indirect Bilirubin (MG/DL) 0.60 AST (8 - 34 IUnit/L) 30 ALT (10 - 49 IUnit/L) 34 Total Alk Phosphatase (20 - 125 IUnit/L) 42 Total Protein (6.4 - 8.2 g/dL) 7.2 Albumin (3.4 - 5.0 g/dL) 3.70 Lipase (13 - 57 U/L) 51Hematology WBC (4.5 - 11.0 x10 3/uL) 6.0 RBC (3.54 - 5.02 x10 6/uL) 4.38 Hgb (11.0 - 15.0 g/dL) 12.7 Hct (33.0 - 45.0 %) 36.9 MCV (81.0 - 99.0 fL) 84.2 MCH (27.0 - 33.0 pg) 29.0 MCHC (33.0 - 37.0 g/dL) 34.4 RDW (11.5 - 14.5 %) 12.8 Plt Count (150 - 400 x10 3/uL) 318 MPV (7.0 - 9.0 fL) 11.9 H Neut % (Auto) (56.0 - 77.0 %) 53.1 L Lymph % (Auto) (14.0 - 32.0 %) 39.7 H [place] % (Auto) (4.8 - 9.0 %) 5.7 Eos % (Auto) (0.3 - 3.7 %) 0.8 Baso % (Auto) (0.0 - 2.0 %) 0.5 Neut # (Auto) (2.0 - 7.6 x10 3/uL) 3.17 Lymph # (Auto) (1.0 - 3.8 x10 3/uL) 2.37 [place] # (Auto) (0.1 - 0.8 x10 3/uL) 0.34 Eos # (Auto) (0.0 - 0.2 x10 3/uL) 0.05 Baso # (Auto) (0.0 - 0.2 x10 3/uL) 0.03 Abs Immat Gran (auto) (0.00 - 0.03 x10 3/uL) 0.01 Immature Gran % (0.0 - 2.0 %) 0.2 Nucleated RBC % (0 - 0 %) 0.0 Nucleated RBCs # (Man) (0.0 - 0.1 x10 3/uL) 0.00 Platelet Estimate (ADEQUATE THOUSAND) Adequate Plt Morphology Comment LARGE PLATELETSUrines Urine Color (YEL/STRAW) YELLOW Urine Appearance (CLEAR) CLEAR Urine pH (5.0 - 7.0) 6.0 Ur Specific [place] (1.005 - 1.030) 1.012 Urine Protein (NEGATIVE) NEGATIVE Urine Glucose (UA) (NEGATIVE) NEGATIVE Urine Ketones (NEGATIVE) NEGATIVE Urine Blood (NEGATIVE) NEGATIVE Urine Nitrite (NEGATIVE) NEGATIVE Urine Bilirubin (NEGATIVE) NEGATIVE Urine Urobilinogen (0.2 - 1.0 mg/dL) 4.0 H Ur Leukocyte Esterase (NEGATIVE) 1+ H Urine RBC (0 - 3 RBC/HPF) 0-3 Urine WBC (0 - 3 WBC/HPF) 0-3 Ur Squamous Epith Cells (NONE SEEN /HPF) 0-5 Urine Bacteria (NONE SEEN /HPF) TRACE Urine HCG, Qual (NEGATIVE) NEGATIVE Recent Impressions:ULTRASOUND - US ABDOMEN [facility] 08/14 7428 Report Impression - Status: SIGNED Entered: 08/16/2023 0000 IMPRESSION:Probable gallbladder sludge, no acute sonographic abnormality presentotherwise.Impression By: [email or web address] - Steven Noble M.D. Lab Imaging StatementLaboratory radiographic studies reviewed and considered in the medical decision-making. Point of Care TestingPulse Oximetry Pulse Ox % 96 On: Room air Interpretation Interpreted by me, Pulse oximetry normal Time 0042 Re-Evaluation MDM Free Text MDM NotesFree Text MDM Notes-I reviewed medical records and imaging studies if available in EMR; Hx obtainedfrom patient as able-Independent history also from EMS, required given medical condition of patient may limit full history -PMH most significant for elements in HPI above Patient presents with abdominal pain,. Acute on chronic, colicky,, with nausea,and nonbilious, nonbloody vomiting. Patient reports baseline bowel movements. Denies genitourinary symptoms. Afebrile, hemodynamically stable on arrival. Abdomen is overall benign. Screening labs, including hematology and electrolytes, ordered to assess for risk of severe/invasive infection, anemia, electrolyte derangements, and renal function, and hepatic function. Lipase ordered to assess for pancreatitis. Abdominal ultrasound was ordered to assess for biliary pathology, including cholecystitis, dilated common bile duct. )( Re-Evaluation/Progress #1Text/Dict Note-Patient care is requiring additional/significant diagnostic testing and treatment due to high risk of morbidity, mortality, complications related to comorbidities, acute illness-All ordered tests were independently reviewed and interpreted by me. Notably showing: Patient blood work was unremarkable, reassuring. Laboratory tests are normal. Lipase negative. Ultrasound showing biliary sludge, no evidence of acute cholecystitis. This is reassuring, will discharge patient with strict surgery follow-up, outpatient follow-up ED return precautions. Dietary changes given. The patient has strong social support at bedside who can monitor patientat home, facilitate return to ED per return precautions, and facilitate outpatient f/u. PCP f/u recommendations, strict ED return precautions, and recommendations for symptom control given. Patient understands and agrees with plan as able. All questions answered at bedside. Time of Re-Eval 0029)( Re-Eval Status ImprovedRe-Eval Abdomen Soft, Non-tender, No guarding, No rebound, No distention Tissue Perfusion ReassessmentPatient tissue perfusion reassessment completed. ED CourseMedication(s) OrderedMedication(s) Ordered:Electrolytic, Caloric, And Jonathon Sig/Cristina Start time Last Medication Dose Route Stop Time Status Admin Sodium Chloride 1,000 ML X1ED STA 08/14 2302 DCD 08/14 IV 08/15 901 230 Patient Discharge Departure Vital Signs/ConditionVital SignsFirst Documented: Result Date Time Pulse Ox 97 08/15 2247 B/P 167/93 08/15 2247 B/P Mean 117 08/15 2247 O2 Delivery Room air 08/15 2247 Temp 37.5 08/15 2247 Pulse 86 08/15 2247 Resp 18 08/15 2247 Last Documented: Result Date Time Pulse Ox 96 08/15 0042 B/P 119/76 08/15 0042 B/P Mean 92 08/15 41 Pulse 64 08/15 41 O2 Delivery Room air 08/15 2247 Temp 37.5 08/15 2247 Resp 08/14 All vital signs available at the time of this entry have been reviewed. Condition Stable, Improved Clinical ImpressionClinical ImpressionPrimary Impression: Biliary colic Disposition DecisionDischarge )( Discharged to Home Yes )( Time 0029 )( Date 08/16/23 Discharge/Care PlanCounseled Regarding Diagnosis, Lab results, Imaging studies, Prescriptions, Needfor follow-up, When to return to ED(Auto) PrescriptionsCurrent Visit ScriptsONDANSETRON ODT (ZOFRAN ODT) 4 MG PO Q12H PRN PRN NAUSEA/VOMITING 5 Days #10 TABS DICYCLOMINE (BENTYL) 20 MG PO QID 5 Days #20 TABS Prescriptions Reviewed Risks, Benefits, Alternative treatmentPatient Instructions ED Gallstones with Biliary ColicAdditional InstructionsRecommend close follow-up with a general surgeon in 1 to 2 weeks or as soon as possible.--Recommend taking prescription medications as needed, decrease fatty foods in your diet, and Motrin/Ibuprofen/Advil (up to 400 mg) every 4-6 hours as needed for pain control. --As needed work note has also been given to help with pain control, rest and recovery, and facilitate outpatient follow-up.--Return to the emergency department if you experience worsening and/or uncontrolled fevers, chest pain, shortness of breath, nausea, vomiting, abdominal pain, and/or other new or worsening symptoms that are concerning to you. ReferralsProvider Referral: Iris Adams MD Follow-Up: Call for appointment Notes: GENERAL SURGEON Address: [address] [place] [address] [address] [place] [address] Departure FormsCLEARLAKE PCP [facility] OR [facility] Discharge NoteI have spoken with the patient and/or caregivers. I have explained the patient'scondition, diagnoses and treatment plan based on the information available to meat this time. I have answered the patient's and/or caregiver's questions and addressed any concerns. The patient and/or caregivers have as good an understanding of the patient's diagnosis, condition and treatment plan as can beexpected at this point. The vital signs have been stable. The patient's condition is stable and appropriate for discharge from the emergency department. The patient will pursue further outpatient evaluation with the primary care physician or other designated or consulting physician as outlined in the discharge instructions. The patient and/or caregivers are agreeable to this planof care and follow-up instructions have been explained in detail. The patient and/or caregivers have received these instructions in written format and have expressed an understanding of the discharge instructions. The patient and/or caregivers are aware that any significant change in condition or worsening of symptoms should prompt an immediate return to this or the closest emergency department or a call to 911. at 0017RPT #:[id number] OF REPORTEDS[facility] department voouwx7249-34-33P68:14:00G.[id number] ilable for patient hwmoCQQKIGKRPMHUWG5002-28-29Z12:17:30 [facility] 2023-04-08 08:12:00 [id number] 711Htrz7pBGXDSNbJS3ikA/142MrF DuYNCqW6TPKf5e58c0BPda9AAem5149-74-90O87:12:00 [facility] ([facility])OB Disch PostpartumREPORT#:[id number] REPORT STATUS: SignedREPORT INITIALIZATION DATE:04/08/23 TIME: 811 PATIENT: MICHAEL TRAN UNIT #: [id number]#: [id number] [place] [facility] [place]DOB: [birth year] AGE: 27 SEX: F ATTEND: Kaleb Roblero MDADM AUTHOR: Kaleb Roblero MDREPT SERVICE DT/TIME: 04/08/23 0812* ALL edits or amendments must be made on the electronic/computer document * Subjective SubjectiveAdmission EGA: Weeks: 37 Days: 5 Discharge Summary GeneralAssessment: nml progressHospital course: repeat admit, nml postop/postpart careDischarge condition: stableDischarge to: Home/Self CareDischarge diagnosis: full-term uncomp deliveryPlan: routine care, discharge today Discharge InstructionsInstructions: routine instr sheet givenDiet: Resume Home Diet/FeedsActivity: Resume Normal ActivityAdditional discharge routines: None at 0813 RPT #:[id number] OF REPORTCLClinical zfbi6461-43-55F43:12:00G.[id number] able for patient cdgaKXWRIBPNLQASLD0313-62-25P45:13:37 [facility] 2023-04-08 08:11:00 [id number] 811r2BKSVTMozeO+hrwYT6WNqd75X Olwz/NJKfoetpcdfqF2BiVh2h1+7394-13-29R83:11:00 [facility] ([facility])OB Postpart Progr NoteREPORT#:[id number] REPORT STATUS: SignedREPORT INITIALIZATION DATE:04/08/23 TIME: 810 PATIENT: MICHAEL TRAN UNIT #: [id number]#: [id number] ROOM/BED: [facility]-1DOB: [birth year] AGE: 27 SEX: F ATTEND: Kaleb Roblero MDADM AUTHOR: Kaleb Roblero MDREPT SERVICE DT/TIME: 04/08/23 0811* ALL edits or amendments must be made on the electronic/computer document * Subjective SubjectiveAdmission EGA: Weeks: 37 Days: 5Status/Day: post (d3)Patient reports: Patient reports: Yes no complaints, Yes normal lochia, Yes pain management effective, Yes tolerating po well, Yes voiding well, Yes voiding without pain, Yes tolerating ambulation, Yes flatus Objective Nursing Documentation ReviewNursing Data:The data set between the solid lines has been imported from nursing documentation. Any exceptions have been noted below under Provider comments. Feeding preference: Post hemorrhage risk score: MedRisk Provider comments on imported nursing data: [] GeneralVS:Vital Signs: Date Time Temp Pulse Resp B/P B/P Pulse O2 O2 Flow FiO2 Mean Ox Delivery Rate 04/08 0000 36.8 67 16 128/85 99 04/07 2018 37.2 112 16 127/80 99 04/07 2000 37.8 99 16 128/86 99 04/07 1600 36.8 99 17 127/82 98 PATIENT WEIGHT: Weight (lb): 185Weight (oz): Weight (kg): 83.554148 Physical ExamAbdomen: soft, no abnormal tenderness, no guardingIncision site: well approximated edges, no drainage, no inflammationUterus: involution appropriate, non-tenderFundus: firm, below the umbilicusLochia: normalLower extremities: Edema: none Stephany's sign: negative Calf tenderness: negative ResultFindings/Data:Laboratory Tests: 04/08 551 Chemistry Total Bilirubin (0.0 - 1.0 mg/dL) 0.60 Direct Bilirubin (0.1 - 0.3 MG/DL) 0.20 Indirect Bilirubin (MG/DL) 0.40 AST (8 - 34 IUnit/L) 24 ALT (10 - 49 IUnit/L) 36 Total Alk Phosphatase (20 - 125 IUnit/L) 139 H Total Protein (6.4 - 8.2 g/dL) 6.4 Albumin (3.4 - 5.0 g/dL) 2.80 L Diagnosis, Assessment Plan Diagnosis, Assessment PlanAssessment: nml progressPlan: routine care, discharge today at 0812 RPT #:[id number] OF REPORTPRProgress vsws9182-80-25H92:11:00G.[id number] able for patient wputLYNUWLAOXHBIGQ2319-96-21O74:12:28 [facility] 2023-04-07 08:50:00 [id number] n6YDyGn7XoN1V0pEUg5Nq6PszfBpA 0ys5KbZQHnRd6LQkfjVmlWkIoEh2929-59-45D37:50:00 [facility] ([facility])OB Postpart Progr NoteREPORT#:[id number] REPORT STATUS: SignedREPORT INITIALIZATION DATE:04/07/23 TIME: 849 PATIENT: MICHAEL TRAN UNIT #: [id number]#: [id number] [address] [birth year] AGE: 27 SEX: F ATTEND: Kaleb Roblero MDADM AUTHOR: Kaleb Roblero MDREPT SERVICE DT/TIME: 04/07/23 0850* ALL edits or amendments must be made on the electronic/computer document * Subjective SubjectiveAdmission EGA: Weeks: 37 Days: 5Status/Day: post (d2)Patient reports: Patient reports: Yes no complaints, Yes normal lochia, Yes pain management effective, Yes tolerating po well, Yes voiding well, Yes voiding without pain, Yes tolerating ambulation, Yes flatus Objective Nursing Documentation ReviewNursing Data:The data set between the solid lines has been imported from nursing documentation. Any exceptions have been noted below under Provider comments. Feeding preference: Post hemorrhage risk score: MedRisk Provider comments on imported nursing data: [] GeneralVS:Vital Signs: Date Time Temp Pulse Resp B/P B/P Pulse O2 O2 Flow FiO2 Mean Ox Delivery Rate 04/06 2000 37.0 72 18 122/79 04/06 1600 36.8 81 16 126/77 98 04/06 1241 36.7 74 16 130/74 96 PATIENT WEIGHT: Weight (lb): 185Weight (oz): Weight (kg): 83.893365 Physical ExamAbdomen: soft, no abnormal tenderness, no guardingIncision site: well approximated edges, no drainage, no inflammationUterus: involution appropriate, non-tenderFundus: firm, below the umbilicusLochia: normalLower extremities: Edema: none Stephany's sign: negative Calf tenderness: negative Diagnosis, Assessment Plan Diagnosis, Assessment PlanAssessment: nml progressPlan: routine care, discharge tomorrow at 0850 RPT #:[id number] OF REPORTPRProgress rcri2990-32-02X86:50:00G.[id number] able for patient zvwfIGBZHENIHVCAVW4725-85-75F22:50:54 [facility] 2023-04-06 11:26:00 [id number] 9GImrWlLKebTBdX4/HxcK68veS1uB vnOxzDs7daZcDZr3DQAJ3NZgld85415-67-63E89:26:00 [facility] ([facility])Pain Management Progress NoteREPORT#:[id number] REPORT STATUS: SignedREPORT INITIALIZATION DATE:04/06/23 TIME: 112 PATIENT: MICHAEL TRAN UNIT #: [id number]#: [id number] [address] [birth year] AGE: 27 SEX: F ATTEND: Kaleb Roblero MDADM AUTHOR: Israel Flanagan MDREPT SERVICE DT/TIME: 04/06/23 1126* ALL edits or amendments must be made on the electronic/computer document * Objective GeneralVS/I O:POD # 1Chief Complaint: abdominal pain, s/p sectionNo catheter in placePatient seen and examinedMoving legsCurrent pain scale 2/10 Pain relieved by rest and pain medicationsCurrent patient activity level resting in bedNo side effects noted. Assessment and plan: Pain is well controlled. Discontinue anesthesia service. Vital SignsDate Temp Pulse Resp B/P B/P Mean Pulse Ox LrM113/28-04/06 36.6-37.8 52-113 15-18 113-142/56-85 80.0-105.0 87-100 Last Documented: Result Date Time Pulse Ox 95 04/06 0700 B/P 114/68 04/06 0700 Temp 36.7 04/06 07 Pulse 58 04/06 0700 Resp 16 04/06 0700 B/P Mean 96.0 04/05 2023 24 hour I O ending at 0700: 04/06 0700 04/05 1900 Intake Total 624 2391 Output Total 2390 2810 Balance -1763 -419 Intake, Other 624 2391 Output, Other 2390 2810 PATIENT WEIGHT: Weight (lb): 185Weight (oz): Weight (kg): 83.120845 at 1128 RPT #:[id number] OF REPORTPRProgress dgpi6502-12-01C55:26:00G.[id number] able for patient enbsPCDBIDBOMZWFXW5117-33-92Q77:29:32 [facility] 2023-04-06 10:51:00 [id number]+HfFIpMC Dy3PTv0+J6XLkX9dmKVJI936aCN5/ wxzNnBlMpJ+OoUHib70AoWiUOWt0193-59-58B33:51:00 [facility] ([facility])OB Postpart Progr NoteREPORT#:[id number] REPORT STATUS: SignedREPORT INITIALIZATION DATE:04/06/23 TIME: 105 PATIENT: MICHAEL TRAN UNIT #: [id number]#: [id number] [address] [birth year] AGE: 27 SEX: F ATTEND: Kaleb Roblero MDADM AUTHOR: Kaelb Roblero MDREPT SERVICE DT/TIME: 04/06/23 1051* ALL edits or amendments must be made on the electronic/computer document * Subjective SubjectiveAdmission EGA: Weeks: 37 Days: 5Status/Day: post (d1)Patient reports: Patient reports: Yes no complaints, Yes normal lochia, Yes pain management effective, Yes tolerating po well, Yes voiding well, Yes voiding without pain, Yes tolerating ambulation, Yes flatus Objective Nursing Documentation ReviewNursing Data:The data set between the solid lines has been imported from nursing documentation. Any exceptions have been noted below under Provider comments. Feeding preference: Post hemorrhage risk score: Oscar Provider comments on imported nursing data: [] GeneralVS:Vital Signs: Date Time Temp Pulse Resp B/P B/P Pulse O2 O2 Flow FiO2 Mean Ox Delivery Rate 04/06 0700 36.7 58 16 114/68 95 04/06 0430 37.0 67 16 125/63 97 04/06 0330 65 97 04/06 0230 64 95 04/06 0100 73 96 04/06 0000 36.6 65 16 116/66 97 04/05 2330 59 94 04/050 64 95 04/050 60 96 04/05 2045 36.7 63 16 122/77 95 04/05 2023 96.0 04/05 2023 69 128/73 04/05 2022 67 95 04/05 2021 56 94 04/05 2017 65 95 04/05 2012 68 95 04/05 2011 65 94 04/05 2007 68 95 04/05 2002 83 97 04/05 1957 92.0 04/05 1957 57 126/70 97 04/05 1953 80 94 04/05 1952 86 97 04/05 1947 66 98 04/05 194 53 98 04/05 1937 73 96 04/05 193 75 97 04/05 1925 61 97 04/05 1922 96.0 04/05 192 54 127/75 04/05 1920 56 97 04/05 1915 59 96 04/05 1910 64 96 04/05 190 94.0 04/05 1907 53 125/72 04/05 1905 36.6 61 18 95 04/05 1900 70 93 04/05 1855 72 96 04/05 1851 77 94 04/05 1850 77 95 04/05 1845 67 96 04/05 1840 64 96 04/05 1835 64 97 04/05 1830 66 97 04/05 1825 61 98 04/05 1823 90.0 04/05 1823 65 122/71 04/05 1820 66 97 04/05 1815 65 98 04/05 1810 64 97 04/05 1808 101.0 04/05 1808 52 137/76 04/05 1805 61 98 04/05 1800 72 96 04/05 1755 77 97 04/05 1753 94.0 04/05 1753 67 129/68 04/05 1750 63 96 04/05 1745 66 96 04/05 1740 69 98 04/05 1738 85.0 04/05 1738 75 124/70 04/05 1735 72 98 04/05 1730 73 96 04/05 1725 68 99 04/05 1723 100.0 04/05 1723 81 142/74 04/05 1720 81 99 04/05 1715 76 99 04/05 1712 69 90 04/05 1710 74 99 04/05 1708 96.0 04/05 1708 84 137/73 04/05 1705 90 99 04/05 1700 80 99 04/05 1655 89 100 04/05 1653 97.0 04/05 1653 86 137/71 04/05 1650 96 100 04/05 1645 90 100 04/05 1642 99 92 04/05 1640 84 100 04/05 1637 36.9 16 04/05 1637 83.0 04/05 1637 96 132/64 04/05 1635 87 100 04/05 1528 85 100 04/05 1523 81 100 04/05 1520 70 87 04/05 1518 66 99 04/05 1513 62 99 04/05 1508 70 99 04/05 1503 67 100 04/05 1458 70 99 04/05 1453 37.8 67 99 04/05 1446 86.0 04/05 1446 66 118/65 04/05 1445 79 98 04/05 1440 70 99 04/05 1435 76 100 04/05 1431 88.0 04/05 1431 68 120/67 04/05 1430 76 100 04/05 1425 95 100 04/05 1424 104 91 04/05 1420 73 100 04/05 1416 96.0 04/05 1416 64 133/71 04/05 1415 69 100 04/05 1410 81 100 04/05 1408 93 93 04/05 1405 102 100 04/05 1401 81.0 04/05 1401 60 113/56 04/05 1400 69 98 04/05 1355 81 100 04/05 1350 103 100 04/05 1349 36.9 04/05 1346 98.0 04/05 1346 85 132/76 04/05 1345 83 100 04/05 1340 113 92 04/05 1335 101 100 04/05 1330 94 100 04/05 1327 95 92 04/05 1325 98 99 04/05 1320 90 100 04/05 1318 86 91 04/05 1315 109 99 04/05 1310 74 98 04/05 1305 81 98 04/05 1302 70 94 04/05 1300 89 98 04/05 1255 68 100 04/05 1250 68 100 04/05 1245 71 100 04/05 1242 93 92 04/05 1240 77 100 04/05 1235 77 99 04/05 1232 105.0 04/05 1232 71 135/85 04/05 1230 67 99 04/05 1225 71 100 04/05 1220 83 97 04/05 1219 84 90 04/05 1215 80 100 04/05 1210 71 99 04/05 1207 37.0 15 04/05 1205 70 100 04/05 1200 76 99 04/05 1155 81 100 04/05 1150 82 99 04/05 1146 84.0 04/05 1146 69 121/61 04/05 1145 77 100 04/05 1140 83 98 04/05 1135 67 100 04/05 1131 80.0 04/05 1131 64 121/56 04/05 1130 81 100 04/05 1125 65 100 04/05 1120 59 100 04/05 1116 75.0 04/05 1116 56 103/57 04/05 1115 72 99 04/05 1110 60 100 04/05 1105 58 99 04/05 1101 77.0 04/05 1101 65 106/57 04/05 1100 61 100 04/05 1055 97 99 PATIENT WEIGHT: Weight (lb): 185Weight (oz): Weight (kg): 83.762608 Physical ExamAbdomen: soft, no abnormal tenderness, no guardingIncision site: well approximated edges, no drainage, no inflammationUterus: involution appropriate, non-tenderFundus: firm, below the umbilicusLochia: normalLower extremities: Edema: none Stephany's sign: negative Calf tenderness: negative ResultFindings/Data:Laboratory Tests: 04/06 0412 Chemistry Sodium (134 - 147 mEq/L) 137 Potassium (3.4 - 5.0 mEq/L) 4.2 Chloride (100 - 108 mEq/L) 107 Carbon Dioxide (21 - 33 mEq/l) 22 Anion Gap (0 - 20) 12 BUN (7 - 25 mg/dL) < 5 L Creatinine (0.6 - 1.3 mg/dL) 0.8 Glomerular Filtr Rate (110 - 120) 102.9 L Glucose (77 - 141 mg/dL) 110 Calcium (8.0 - 10.5 mg/dL) 8.3 Total Bilirubin (0.0 - 1.0 mg/dL) 0.90 AST (8 - 34 IUnit/L) 36 H ALT (10 - 49 IUnit/L) 47 Total Alk Phosphatase (20 - 125 IUnit/L) 137 H Total Protein (6.4 - 8.2 g/dL) 5.2 L Albumin (3.4 - 5.0 g/dL) 2.20 L Hematology WBC (4.5 - 11.0 x10 3/uL) 15.5 H RBC (3.54 - 5.02 x10 6/uL) 3.52 L Hgb (11.0 - 15.0 g/dL) 9.7 L Hct (33.0 - 45.0 %) 29.7 L MCV (81.0 - 99.0 fL) 84.4 MCH (27.0 - 33.0 pg) 27.6 MCHC (33.0 - 37.0 g/dL) 32.7 L RDW (11.5 - 14.5 %) 15.3 H Plt Count (150 - 400 x10 3/uL) 151 Neut % (Auto) (56.0 - 77.0 %) 83.9 H Lymph % (Auto) (14.0 - 32.0 %) 7.0 L [place] % (Auto) (4.8 - 9.0 %) 8.5 Eos % (Auto) (0.3 - 3.7 %) 0.0 L Baso % (Auto) (0.0 - 2.0 %) 0.1 Neut # (Auto) (2.0 - 7.6 x10 3/uL) 12.99 H Lymph # (Auto) (1.0 - 3.8 x10 3/uL) 1.09 [place] # (Auto) (0.1 - 0.8 x10 3/uL) 1.32 H Eos # (Auto) (0.0 - 0.2 x10 3/uL) 0.00 Baso # (Auto) (0.0 - 0.2 x10 3/uL) 0.01 Abs Immat Gran (auto) (0.00 - 0.03 x10 3/uL) 0.08 H Add Manual Diff NO Immature Gran % (0.0 - 2.0 %) 0.5 Nucleated RBC % (0 - 0 %) 0.0 Nucleated RBCs # (Man) (0.0 - 0.1 x10 3/uL) 0.00 Platelet Estimate (ADEQUATE THOUSAND) Adequate Immature Plt Fraction (0.9 - 11.2 %) 23.4 H Plt Morphology Comment LARGE PLATELETS Diagnosis, Assessment Plan Diagnosis, Assessment PlanAssessment: nml progressPlan: routine care at 1052 RPT #:[id number] OF REPORTPRProgress zhhj1203-33-97H81:51:00G.[id number] able for patient mxyiTQKYDPWLFLPGCO0887-62-18B22:52:22 [facility] 2023-04-05 16:51:00 [id number] 443vtshc7Xf79gI83zo8+YE0d3Kci qUBxQsarTqhIe6SbSUJvG3pZEAm4178-58-18O85:51:76046 8-0241 [place] [address] PATIENT NAME: MICHAEL TRAN ADMIT DATE: 04/04/23ACCOUNT NO: [id number] ROOM NO: [facility] AGE: 27 REPORT TYPE: OPERATIVE REPORT SEX: F ADMITTING PHYSICIAN:Kaleb Roblero MD ATTENDING PHYSICIAN:Kaleb Roblero MD OPERATION DATE: PROCEDURE: Primary low transverse section via Pfannenstiel incision. SURGEON: Kaleb Roblero MD AIR CONDITIONING SHEET METAL INSTALLER: Chani Chavira. ANESTHESIA: PREOPERATIVE DIAGNOSES:1. Intrauterine at 38 weeks gestational age.2. Nonreassuring heart tones.3. Failure to descend.4. Maternal fever.5. Gestational diabetes. POSTOPERATIVE DIAGNOSES:1. Intrauterine at 38 weeks gestational age.2. Nonreassuring heart tones.3. Failure to descend.4. Maternal fever.5. Gestational diabetes. FINDINGS:1. Viable male infant in vertex presentation with scores 8 and 9.2. Normal fallopian tubes and ovaries.3. Nuchal cord x1. ESTIMATED BLOOD LOSS: 400 mL COMPLICATIONS: None. PATHOLOGY: Placenta and cord segment for gases. PROCEDURE IN DETAIL: After discussing risks and benefits of the procedure with the patient and answering her questions, she was taken to the operating room, where anesthesia was administered and found to be adequate. The patient was prepped and draped in normal sterile fashion in a supine position with a leftward tilt. Pfannenstiel skin incision was made with a scalpel and carried down to underlying layer of fascia with the scalpel. The fascia was nicked in the midline and the fascial incision was extended bilaterally using the Brandon scissors. The superior aspect of the fascial incision was grasped with 2 Sukh PATIENT NAME: MICHAEL TRAN clamps, elevated, and underlying layer of rectus muscles were dissected off sharply with the Brandon scissors. The same was repeated on the inferior aspect ofthe fascial incision where it was grasped with 2 Sukh clamps, elevated, and underlying layer of rectus muscles were dissected off sharply with the Brandon scissors. The muscles were in the midline. The peritoneum was identified and entered bluntly. The peritoneal incision was then extended superiorly and inferiorly with good visualization of bladder. The bladder bladewas inserted and the vesicouterine fascia was dissected to create the bladder flap. The bladder blade was repositioned and the lower uterine segment was incised with a scalpel in a low transverse fashion. Incision was extended bilaterally in a blunt fashion. The 's head was delivered atraumatically and the mouth and nose suctioned. The 's torso was then delivered and thecord was clamped and cut. The infant was handed off to the waiting pediatric nurse. The placenta was delivered manually. The uterus was then exteriorized and cleared of all clots and debris. Uterine incision was then reapproximated with 0 Vicryl in a running-locked fashion with excellent hemostasis. The uteruswas returned to the abdomen and the gutters were cleared of all clots and debris. The bladder blade was reinserted and the hysterotomy was re-examined and found to be hemostatic and was covered with a piece of Interceed adhesion barrier. The bladder blade was removed and the fascia was reapproximated with 0Vicryl in a running fashion with excellent closure. The skin was closed with maribel. The procedure was terminated. All laps, needles, and instrument counts were correct x2 at the end of procedure. The patient was taken to recovery room in stable condition. Dictated By: Kaleb Roblero MD Date Dictated: 04/05/2023 16:51:21Date Transcribed: 04/05/2023 17:43:27HAKEEM/Demond #: [id number] ID: [id number] by Kaleb Roblero MD On 04/11/2023 10:11:42 PM at 1011 PATIENT NAME: MICHAEL TRAN zeujvu9081-34-37Z19:43:00G.[id number] lable for patient citmLZAYDEIMRQXXCS4022-98-21D29:12:18 [facility] 2023-04-05 16:48:00 [id number]/Dw8RDay T76VSd+YsnI5Pex1xHrCMzQ7wnUft z24ctIw/vOUqyAb7Lijls0LIZjM8346-08-66V24:48:00 [facility] ([facility])Brief Op NoteREPORT#:[id number] REPORT STATUS: SignedREPORT INITIALIZATION DATE:04/05/23 TIME: 164 PATIENT: MICHAEL TRAN UNIT #: [id number]#: [id number] ROOM/BED: Marty-OB: [birth year] AGE: 27 SEX: F ATTEND: Kaleb Roblero MDADM AUTHOR: Kaleb Roblero MDREPT SERVICE DT/TIME: 04/05/23 1648* ALL edits or amendments must be made on the electronic/computer document * Op/Inv Proc Note - BriefPre-procedure diagnosis:IUP at 38 weeks GANRFHTsFTP Maternal feverCholelythiasisPost-procedure diagnosis: same as pre procedure dxProcedures performed:LTCSPrimary Surgeon:Valentinot(s): CaroleeeFindings:VMI in vtx presentationComplications: noneEstimated blood loss in ml's: 400Specimens removed/altered: placenta and cord segment at 1649 RPT #:[id number] OF REPORTOPOperative yquuox3301-00-17Q31:48:00G.[id number] ilable for patient uettZUSPCXLFRXKTKO5461-72-18D93:50:08 [facility] 2023-04-04 08:06:00 [id number] jYh0dB72a+UXlb0N3BjqWf5Qibset /5CpwgVDMJF9LN6DnFP/Xxnv+6M2556-90-31X48:06:00 [facility] ([facility])DT History PhysicalREPORT#:[id number] REPORT STATUS: SignedREPORT INITIALIZATION DATE:04/04/23 TIME: 805 PATIENT: MICHAEL TRAN UNIT #: [id number]#: [id number] ROOM/BED: Neema-1DOB: [birth year] AGE: 27 SEX: F ATTEND: Kaleb Roblero MDADM AUTHOR: Kaleb Roblero MDREPT SERVICE DT/TIME: 04/04/23805* ALL edits or amendments must be made on the electronic/computer document * History PhysicalHistory PhysicalPatient seen and examined and care records reviewed with the following updates: Laboratory Tests 04/04/23605:[Embedded Image Not Available]Laboratory Tests Test Result Date Time Hematology WBC (4.5 - 11.0 x10 3/uL) 5.8 04/04 606 RBC (3.54 - 5.02 x10 6/uL) 4.11 04/04 606 Hgb (11.0 - 15.0 g/dL) 11.2 04/04 606 Hct (33.0 - 45.0 %) 35.1 04/04 606 MCV (81.0 - 99.0 fL) 85.4 04/04 606 MCH (27.0 - 33.0 pg) 27.3 04/04 606 MCHC (33.0 - 37.0 g/dL) 31.9 L 04/04 606 RDW (11.5 - 14.5 %) 15.1 H 04/04 606 Plt Count (150 - 400 x10 3/uL) 179 04/04 606 MPV (7.0 - 9.0 fL) 13.1 H 04/04 606 Neut % (Auto) (56.0 - 77.0 %) 60.9 04/04 606 Lymph % (Auto) (14.0 - 32.0 %) 26.0 04/04 606 [place] % (Auto) (4.8 - 9.0 %) 11.0 H 04/04 606 Eos % (Auto) (0.3 - 3.7 %) 1.4 04/04 606 Baso % (Auto) (0.0 - 2.0 %) 0.2 04/04 606 Neut # (Auto) (2.0 - 7.6 x10 3/uL) 3.54 04/04 606 Lymph # (Auto) (1.0 - 3.8 x10 3/uL) 1.51 04/04 606 [place] # (Auto) (0.1 - 0.8 x10 3/uL) 0.64 04/04 606 Eos # (Auto) (0.0 - 0.2 x10 3/uL) 0.08 04/04 606 Baso # (Auto) (0.0 - 0.2 x10 3/uL) 0.01 04/04 606 Abs Immat Gran (auto) (0.00 - 0.03 x10 3/uL) 0.03 04/04 606 Immature Gran % (0.0 - 2.0 %) 0.5 04/04 606 Nucleated RBC % (0 - 0 %) 0.0 04/04 606 Nucleated RBCs # (Man) (0.0 - 0.1 x10 3/uL) 0.00 04/04 606 Immature Plt Fraction (0.9 - 11.2 %) 20.1 H 04/04 606 Serology Hep Bs Antigen (NonReactive INDEX) NON REACTIVE 04/04 606 HIV 1 2 Antibody Screen (Nonreactive) Nonreactive 04/04 606 Current Hospital Medications:Autonomic Drugs Sig/Cristina Start time Last Medication Dose Route Stop Time Status Admin Ephedrine Sulfate 10 MG ASDIR PRN 04/04 0500 AC (ePHEDrine sulfate) IV 06/28 1244 Ephedrine Sulfate 25 MG ASDIR PRN 04/04 0500 AC (ePHEDrine sulfate) IM 06/28 1244 Cardiovascular Drugs Sig/Cristina Start time Last Medication Dose Route Stop Time Status Admin Hydralazine HCl 10 MG ASDIR PRN 04/04 0500 AC (APRESOLINE) IV 06/28 1244 Labetalol HCl 20 MG ASDIR PRN 04/04 0500 AC (LABETALOL HCL) IV 06/28 1244 Labetalol HCl 40 MG ASDIR PRN 04/04 0500 AC (LABETALOL HCL) IV 06/28 1244 Labetalol HCl 80 MG ASDIR PRN 04/04 0500 AC (LABETALOL HCL) IV 06/28 1244 Lidocaine HCl 30 ML ASDIR PRN 04/04 0500 AC (LIDOCAINE HCL/PF) LOCAL 06/28 1244 Central Nervous System Agents Sig/Cristina Start time Last Medication Dose Route Stop Time Status Admin Ropivacaine/Fentanyl/ 0 ASDIR PRN 04/04 0500 AC NS EPIDURAL 06/28 1244 (fentaNYL/ROP 200 MCG/0.125% 100ML CASSETTE) Electrolytic, Caloric, And Jonathon Sig/Cristina Start time Last Medication Dose Route Stop Time Status Admin Citric Acid/Sodium 30 ML ONCE PRN 04/04 0500 AC Citrate PO 06/28 1244 (BICITRA ADULT DOSE) Lactated Ringer's 1,000 ML BOLUS PRN 04/04 0500 AC (LACTATED RINGERS) IV 06/28 1244 Lactated Ringer's 1,000 ML .Q8H 04/04 0500 AC 04/04 (LACTATED RINGERS) IV 06/28 1244 0531 Gastrointestinal Drugs Sig/Cristina Start time Last Medication Dose Route Stop Time Status Admin Misoprostol 25 MCG X1ED STA 04/04 06 DC 04/04 (CYTOTEC 25MCG) VAGINAL 04/04 06 0645 Famotidine 20 MG ONCE PRN 04/04 0500 AC (PEPCID) IV 06/28 1244 Metoclopramide HCl 10 MG ONCE PRN 04/04 0500 AC (REGLAN) IV 06/28 1244 Mineral Oil 30 ML ASDIR PRN 04/04 0500 AC (MINERAL OIL) TOPICAL 06/28 1244 Misoprostol 800 MCG ONCE PRN 04/04 0500 AC (miSOPROStoL) RECTAL 06/28 1244 Ondansetron HCl 4 MG Q4H PRN PRN 04/04 0500 AC (ZOFRAN) IV 06/28 1244 Local Anesthetics (Parenteral) Sig/Cristina Start time Last Medication Dose Route Stop Time Status Admin Bupivacaine HCl 0 ASDIR PRN 04/04 0500 AC (MARCAINE) EPIDURAL 06/28 1244 Oxytocics Sig/Cristina Start time Last Medication Dose Route Stop Time Status Admin Carboprost 250 MCG ONCE PRN 04/04 0500 AC Tromethamine IM 06/28 1244 (HEMABATE) Methylergonovine 0.2 MG ONCE PRN 04/04 0500 AC Maleate IM 06/28 1244 (METHERGINE) Oxytocin 333.33 ML BOLUS PRN 04/04 0500 AC (OXYTOCIN 30 UNITS/ IV 06/28 1244 NS 500ML) Vital Signs: Date Time Temp Pulse Resp B/P B/P Pulse O2 O2 Flow FiO2 Mean Ox Delivery Rate 04/04 718 80 100 04/04 717 104.0 04/04 717 36.6 78 18 134/84 100 04/04 0611 93.0 04/04 611 88 130/71 04/04 534 81 99 04/04 529 90 99 04/04 524 99 99 04/04 523 106.0 04/04 523 36.6 77 20 137/85 99 at 0808 RPT #:[id number] OF REPORTHPHistory and physical cthrexdbpov8951-63-46C68:06:00G.PKDV09823073-6312 AVAvailable for patient kftoRVVTTZMPZCXCXN2728-53-65Z26:10:07 [facility] 2023-03-30 13:25:00 [id number]/dvWox 9UfjO1E9Ycv9ac5NqipuHzdHBJrjX zYNxZCXmPG5Q3yofgqEMuiSu1WY2114-38-20U43:25:00 [facility] ([facility])OB Antepartum Prog NoteREPORT#:[id number] REPORT STATUS: SignedREPORT INITIALIZATION DATE:03/30/23 TIME: 1324 PATIENT: MICHAEL TRAN UNIT #: [id number]#: [id number] [address] [birth year] AGE: 27 SEX: F ATTEND: Kaleb Roblero MDADM AUTHOR: Kaleb Roblero MDREPT SERVICE DT/TIME: 03/30/23 1325* ALL edits or amendments must be made on the electronic/computer document * Subjective SubjectiveAdmission EGA: Weeks: 36 Days: 3Current EGA: Current EGA(wks): 36 Current EGA(days): 6Patient reports: Patient reports: Yes: normal movement. No: complaints, abdominal pain, vaginal bleeding, leaking fluid, contractions, headache, blurred vision, scotomata, fever. Objective Nursing Documentation ReviewNursing data:The data set between the solid lines has been imported from nursing documentation. Any exceptions have been noted below under Provider comments. ROM date: time: Labor onset date: Labor onset time: Provider comments on imported nursing data: [] VS:Last Documented: Result Date Time B/P Mean 82.0 03/30 712 B/P 112/62 03/30 07 Temp 37.1 03/30 07 Pulse 100 03/30 07 Resp 17 03/30 07 Pulse Ox 99 03/30 0508 Vital SignsDate Temp Pulse Resp B/P B/P Mean Pulse Ox NkB292/-03/30 36.7-37.1 66-103 17-20 112-135/62-84 82.0-101.0 99-100 PATIENT WEIGHT: Weight (lb): 185Weight (oz): Weight (kg): 84.100 Membranes: IntactHEENT: normocephalic w/o injuryLungs: unlabored breathingNeuro: Exam: alert, oriented x3, normal speechAbdomen: gravid, soft, no abnormal tenderness, no guarding, RUQ tenderness to deep palpationLower extremities: Edema: none Stephany's sign: negative Calf tenderness: negativeBaby A: Baby A FHR category: category 1 Diagnosis, Assessment Plan Diagnosis, Assessment PlanFree text A P:Gall stones with elevated liver enzymes. Trending down. She desires to go home for the holiday and is pain free. Will set induction for Tuesday and then cholecystectomy same admission or to follow delivery as out patient. Precautionsgiven to return if pain restarts and diet restrictions discussed. She understands. at 1329 RPT #:[id number] OF REPORTPRProgress coio5233-48-57X63:25:00G.[id number] able for patient xjlzPQIBFLJBUJPDOZ6039-23-34F92:30:22 [facility] 2023-03-30 09:02:00 [id number] yALf4Ys6B0ZFS5n5tecJE0kzGssFx tJJvtLFaRBnbAiE4E37gS1nNrHK2010-75-80F13:02:00 [facility] ([facility])Gastroenterology Progress NoteREPORT#:[id number] REPORT STATUS: SignedREPORT INITIALIZATION DATE:03/30/23 TIME: 901 PATIENT: MICHAEL TRAN UNIT #: [id number]#: [id number] [address] [birth year] AGE: 27 SEX: F ATTEND: Kaleb Roblero MDADM AUTHOR: Ruth Correa PAREPT SERVICE DT/TIME: 03/30/23901* ALL edits or amendments must be made on the electronic/computer document * Ruth Correa 03/30/23 0902:SubjectivePatient reports:Yes: bowel movement, passing gas. No: complaints, abdominal pain, black stools,nausea, rectal bleeding, vomiting. Review of SystemsConstitutional:Denies: chills, fever. Respiratory:Denies: SOB. Cardiovascular:Denies: chest pain, edema. Neuro:Denies: headache. All systems rev neg: except as marked Objective GeneralVS/I O:Last Documented: Result Date Time B/P Mean 82.0 03/30 712 B/P 112/62 03/30 712 Temp 37.1 03/30 712 Pulse 100 03/30 712 Resp 17 03/30 712 Pulse Ox 99 03/30 0508 PATIENT WEIGHT: Weight (lb): 185Weight (oz): Weight (kg): 84.100 Medications:Active Meds + DC'd Last 24 HrsDocusate Sodium (COLACE) 100 MG DAILY PO Vit/Iron/Folic Ac/DSS/DHA (/FE/FA/OM3/DHA/EPA) 1 CAP DAILY PO Magnesium Hydroxide (MILK OF MAGNESIA) 30 ML TID PRN PRN PO Polyethylene Glycol (MIRALAX) 17 GM DAILY PRN PRN PO Simethicone (MYLANTA GAS) 160 MG Q2H PRN PRN PO Acetaminophen (TYLENOL) 650 MG Q4H PRN PRN PO Al Hydrox/Mg Hydrox/Simethicone (MYLANTA) 30 ML TID PRN PRN PO Hydrocodone Bitart/Acetaminophen (NORCO 5/325) 1 TAB Q6H PRN PRN PO Lactated Ringer's (LACTATED RINGERS) 1,000 ML .Q8H IV Ondansetron HCl (ZOFRAN) 4 MG Q6H PRN PRN IV Dietitian nutrition assessmentThe data set between the solid lines has been imported from the dietitian's assessment. BMI Calculated: 31.75Nutrition related diagnosis: Nutrition diagnosis details: Nutrition problem: Nutrition etiology: Nutrition signs and symptoms: Nutrition prescription: Dietitian name: Assessment completed: Physical ExamGeneral appearance: alert, awake, orientedHEENT: atraumatic, normocephalicNeck: no JVDCardiovascular: normal S1/S2, regular rate rhythmRespiratory: equal breath sounds, symmetric expansion, no distressAbdomen: non-tender, normal bowel sounds, soft, no distention, no guarding, no pulsatile mass, GravidExtremities: moves all, no edemaMusculoskeletal: full range of motion, normal inspection, painless range of motionNeuro/PHOTO BOOTH OPERATOR: alert, oriented X 3, no motor deficitsSkin: dry, intact, normal colorPsychiatry: normal affect, normal judgment/insight, normal mood ResultsFindings/Data:Laboratory Tests 03/30/23 0513:[Embedded Image Not Available] 03/30/2312:[Embedded Image Not Available]Laboratory Tests 03/30 513 Chemistry Sodium (134 - 147 mEq/L) 139 Potassium (3.4 - 5.0 mEq/L) 3.7 Chloride (100 - 108 mEq/L) 109 H Carbon Dioxide (21 - 33 mEq/l) 22 Anion Gap (0 - 20) 11 BUN (7 - 25 mg/dL) < 5 L Creatinine (0.6 - 1.3 mg/dL) 0.7 Glomerular Filtr Rate (110 - 120) 120.7 H Glucose (77 - 141 mg/dL) 83 Calcium (8.0 - 10.5 mg/dL) 8.7 Total Bilirubin (0.0 - 1.0 mg/dL) 0.60 AST (8 - 34 IUnit/L) 74 H ALT (10 - 49 IUnit/L) 100 H Total Alk Phosphatase (20 - 125 IUnit/L) 160 H Total Protein (6.4 - 8.2 g/dL) 5.9 L Albumin (3.4 - 5.0 g/dL) 2.50 L Laboratory Tests 03/30 512 Hematology WBC (4.5 - 11.0 x10 3/uL) 5.7 RBC (3.54 - 5.02 x10 6/uL) 3.96 Hgb (11.0 - 15.0 g/dL) 11.0 Hct (33.0 - 45.0 %) 33.6 MCV (81.0 - 99.0 fL) 84.8 MCH (27.0 - 33.0 pg) 27.8 MCHC (33.0 - 37.0 g/dL) 32.7 L RDW (11.5 - 14.5 %) 15.4 H Plt Count (150 - 400 x10 3/uL) 142 L MPV (7.0 - 9.0 fL) 12.2 H Neut % (Auto) (56.0 - 77.0 %) 63.2 Lymph % (Auto) (14.0 - 32.0 %) 27.1 [place] % (Auto) (4.8 - 9.0 %) 8.0 Eos % (Auto) (0.3 - 3.7 %) 1.2 Baso % (Auto) (0.0 - 2.0 %) 0.2 Neut # (Auto) (2.0 - 7.6 x10 3/uL) 3.61 Lymph # (Auto) (1.0 - 3.8 x10 3/uL) 1.55 [place] # (Auto) (0.1 - 0.8 x10 3/uL) 0.46 Eos # (Auto) (0.0 - 0.2 x10 3/uL) 0.07 Baso # (Auto) (0.0 - 0.2 x10 3/uL) 0.01 Abs Immat Gran (auto) (0.00 - 0.03 x10 3/uL) 0.02 Add Manual Diff NO Immature Gran % (0.0 - 2.0 %) 0.3 Nucleated RBC % (0 - 0 %) 0.0 Nucleated RBCs # (Man) (0.0 - 0.1 x10 3/uL) 0.00 Results: labs reviewed, vital signs reviewed Diagnosis, Assessment PlanProblem List/A P: 1. Elevated LFTs 2. Symptomatic cholelithiasis 3. Epigastric pain 4. 36 weeks gestation of Free Text A P:LFTs continue to improve. BP stable. No LLE. No pruritus or jaundice reported. Hgb stable. Plts stable. Recommendations: 1. Gen surg has seen, appreciate input 2. Elevated ast/alt and alk phos, possibly related to gallstones, cont to monitor; improving3. Thrombocytopenia, monitor- stable 4. Viral hep panel negative; Based on clinical course, may consider chronic liver labs5. Constipation, on colace- having BMs6. Pain control (judicious use of tylenol, med list includes tylenol 650mg prn and norco 5/325 prn) and antiemetics prn AttestationsAttestation needed: supervising physician Radu Landa 03/31/23 1313:Attestations Physician AttestationAgree w/findings plan:Agree with the findings and plan as documented by Madeline CALVILLO; at 1142 at 1313 RPT #:[id number] OF REPORTPRProgress csld2835-06-47M57:02:00G.[id number] able for patient ywhbBNMRNFJMTMRBMS4839-29-76Q75:43:26 [facility] 2023-03-29 17:44:00 [id number] CzUG4YjSbatmZFqLtrG1uwcnztlBK MqV0oMatg1cfjHg0hCD5CtS3Q6/5617-10-44B63:44:00 [facility] ([facility])General Surgery Progress NoteREPORT#:[id number] REPORT STATUS: SignedREPORT INITIALIZATION DATE:03/29/23 TIME: 1743 PATIENT: MICHAEL TRAN UNIT #: [id number]#: [id number] [address] [birth year] AGE: 27 SEX: F ATTEND: Kaleb Roblero MDADM AUTHOR: Giselle Spencer APRNNPREPT SERVICE DT/TIME: 03/29/23 1119* ALL edits or amendments must be made on the electronic/computer document * Giselle Spencer 03/29/23 1744:SubjectiveChief complaint:Abd painHPI:No acute changes overnight. LFT's trending down today. Will continue conservative management. Induction of labor moved up to 37 weeks if pain and elevated LFTs persist. When back for delivery please contact our team and we will be happy to remove gallbladder . Continue small frequent low fat meals to reduce gallbladder pain. Will loosely follow patient for the remainder of her current admission. Review of SystemsConstitutional:Denies: fever. Respiratory:Denies: WAGNER (dyspnea on exertion), SOB. Cardiovascular:Denies: chest pain. GI:Reports: abdominal pain (intermitant). Denies: constipation, diarrhea, nausea, vomiting. Neuro:Denies: change in LOC. All systems rev neg: except as marked Objective GeneralVS/I O:Last Documented: Result Date Time B/P Mean 95.0 03/29 1118 B/P 123/79 03/29 111 Temp 37.0 03/29 1118 Pulse 93 03/29 1118 Resp 20 03/29 111 Pulse Ox 100 03/28 1915 Vital SignsDate Temp Pulse Resp B/P B/P Mean Pulse Ox MhN769/20-03/29 36.9-37.0 70-93 18-20 116-134/60-81 83.0-103.0 100 PATIENT WEIGHT:Weight (lb): 185Weight (kg): 84.100 Medications:Active Meds + DC'd Last 24 HrsDocusate Sodium (COLACE) 100 MG DAILY PO Vit/Iron/Folic Ac/DSS/DHA (/FE/FA/OM3/DHA/EPA) 1 CAP DAILY PO Magnesium Hydroxide (MILK OF MAGNESIA) 30 ML TID PRN PRN PO Polyethylene Glycol (MIRALAX) 17 GM DAILY PRN PRN PO Simethicone (MYLANTA GAS) 160 MG Q2H PRN PRN PO Acetaminophen (TYLENOL) 650 MG Q4H PRN PRN PO Al Hydrox/Mg Hydrox/Simethicone (MYLANTA) 30 ML TID PRN PRN PO Hydrocodone Bitart/Acetaminophen (NORCO 5/325) 1 TAB Q6H PRN PRN PO Lactated Ringer's (LACTATED RINGERS) 1,000 ML .Q8H IV Ondansetron HCl (ZOFRAN) 4 MG Q6H PRN PRN IV ResultsFindings/Data:Laboratory Tests 03/29/23 041:[Embedded Image Not Available]Laboratory Tests 03/29 414 Chemistry Sodium (134 - 147 mEq/L) 139 Potassium (3.4 - 5.0 mEq/L) 3.8 Chloride (100 - 108 mEq/L) 109 H Carbon Dioxide (21 - 33 mEq/l) 22 Anion Gap (0 - 20) 12 BUN (7 - 25 mg/dL) < 5 L Creatinine (0.6 - 1.3 mg/dL) 0.7 Glomerular Filtr Rate (110 - 120) 120.7 H Glucose (77 - 141 mg/dL) 84 Calcium (8.0 - 10.5 mg/dL) 8.7 Total Bilirubin (0.0 - 1.0 mg/dL) 0.60 AST (8 - 34 IUnit/L) 84 H ALT (10 - 49 IUnit/L) 107 H Total Alk Phosphatase (20 - 125 IUnit/L) 166 H Total Protein (6.4 - 8.2 g/dL) 6.0 L Albumin (3.4 - 5.0 g/dL) 2.60 L Laboratory Tests 03/29 414 Hematology WBC (4.5 - 11.0 x10 3/uL) 5.3 RBC (3.54 - 5.02 x10 6/uL) 4.04 Hgb (11.0 - 15.0 g/dL) 11.1 Hct (33.0 - 45.0 %) 34.1 MCV (81.0 - 99.0 fL) 84.4 MCH (27.0 - 33.0 pg) 27.5 MCHC (33.0 - 37.0 g/dL) 32.6 L RDW (11.5 - 14.5 %) 15.5 H Plt Count (150 - 400 x10 3/uL) 137 L MPV (7.0 - 9.0 fL) 11.9 H Neut % (Auto) (56.0 - 77.0 %) 63.6 Lymph % (Auto) (14.0 - 32.0 %) 27.1 [place] % (Auto) (4.8 - 9.0 %) 7.2 Eos % (Auto) (0.3 - 3.7 %) 1.3 Baso % (Auto) (0.0 - 2.0 %) 0.4 Neut # (Auto) (2.0 - 7.6 x10 3/uL) 3.35 Lymph # (Auto) (1.0 - 3.8 x10 3/uL) 1.43 [place] # (Auto) (0.1 - 0.8 x10 3/uL) 0.38 Eos # (Auto) (0.0 - 0.2 x10 3/uL) 0.07 Baso # (Auto) (0.0 - 0.2 x10 3/uL) 0.02 Abs Immat Gran (auto) (0.00 - 0.03 x10 3/uL) 0.02 Add Manual Diff NO Immature Gran % (0.0 - 2.0 %) 0.4 Nucleated RBC % (0 - 0 %) 0.0 Nucleated RBCs # (Man) (0.0 - 0.1 x10 3/uL) 0.00 Laboratory Tests 03/29 414 Serology RPR (NONREACTIVE) NONREACTIVE Hepatitis A IgM Ab (NON REACT. INDEX) NON REACTIVE Hep Bs Antigen (NonReactive INDEX) NON REACTIVE Hep B Core IgM Ab (NON REACT. INDEX) NON REACTIVE Hepatitis C Antibody (NON REACT. INDEX) NON REACTIVE HIV 1 2 Antibody Screen (Nonreactive) Nonreactive Results: labs reviewed, vital signs reviewed, vital signs stable, current med profile rev'd Free Text Obj NotesFree Text Obj Notes:Constitutional: GCS 15, patient awake, alert, no acute distress, HR, BP, O2 saturation reviewed in recordsEyes: pupils equal, round, reactive to light, EOMIHENT: normal cephalic, atraumatic, no facial tenderness or crepitus, normal external inspection of ears/nose, no septal hematoma.Neck: trachea midline, no crepitus, thyroid without massCV: regular rate, rhythm, bilateral radial pulses 2+, no cyanosis, no edema, no pulsatile abdominal massRespiratory: lungs clear bilaterally, respirations even and unlabored, no tenderness to palpation, normal inspection of chest, no crepitusAbdomen: soft, gravid, no masses, no hernia notedGU: normal external genitalia, pelvis stableLymph nodes: no cervical or supraclavicular masses notedMusculoskeletal:-All extremities without focal tenderness, without deformity, with ROM intactSkin: skin warm to palpationPsychiatric: normal mood and affect, memory intactNeurologic: face symmetrical. Bilateral upper and lower extremity sensation intact Diagnosis, Assessment PlanHospital course to date:03/28: Ms. Tran is a 27-year-old female who is 36 weeks with a past medical history significant for gestational diabetes and cholelithiasis presenting to the hospital for epigastric pain. She reports pain can radiate to the right upper quadrant area and back. Aggravating factors: eating. Other associated symptoms include nausea and constipation. She denies any fever, chills, headache, chest pain, shortness of breath, vomiting, hematemesis, coffee-ground emesis, melena, hematochezia, diarrhea, or myalgias. An abdominal ultrasound was completed which revealed cholelithiasis and right-sided hydronephrosis. Will follow for general surgery. 03/29: No acute changes overnight. LFT's trending down today. Will continue conservative management. Induction of labor moved up to 37 weeks if pain and elevated LFTs persist. When back for delivery please contact our team and we will be happy to remove gallbladder . Continue small frequent low fat meals to reduce gallbladder pain. Will loosely follow patient for the remainder of her current admission. Free Text A P:Problems:Abd pain Active Issues: GI prophylaxis: dietLines/Garcia/ETT: PIV Consultants: General surgery, Dr. Azul, Dr. RungtaDr. Arthur Procedures: Plan:Abdominal pain / cholelithiasis* admit to [facility]* following for general surgery* Abd US completed* recommend low fat bland diet as tolerated* patient with symptomatic cholelithaisis that has become persistent with pain increase with PO intake. Recommend cholecystectomy this admission, but ideally , patient reports that she is scheduled for induction due to gestastional diabetes on 04/11, patient is non-toxic, cholecystectomy is nonemergent at this time, patient may also be evaluated as outpatient for cholecystectomy , however given the duration and increasing discomfortpatient would benefit from cholecystectomy sooner rather than later* will defer decision to induce to [facility]* may contact surgeon with our group at [phone] once delivery has occured or sooner with questions or to discuss plan further* multimodal pain control with IV/PO narcotic and non-narcotic medications* recommend Bentyl as needed for cramping pain* induction of labor will be moved up to 37 weeks if pain and elevated LFTs persist per OB* when back for delivery please contact our team and we will be happy to remove gallbladder . Diet: low fat diet as toleratedLabs: per primary teamCode status: Full codeMedical Decision Making: In the event the patient is incapacitated and not able to make their own medical decisions, they have elected [], contact number [], tomake medical decisions for them.Dispo: Admit; will continue to monitor for ICU needs or any further changes to level of care Quality: Trauma Gen Surg Advanced Care Plan 65 or OlderDiscussed with: patient Current MedicationsCurrent medication review:I attest that the foregoing medication list in the medical record is true, accurate, and complete to the best of my knowledge. Kwabena Leavitt 04/11/23 1903:Attestations Physician AttestationAgree w/findings plan: I have performed a diagnostic evaluation on this patient. I have personally reviewed the assessment and care plan and confirm the diagnosis as above. I have also reviewed and agree with Bonar,Giselle K APRNNP documentation and implemented plans as they have dictated/documented. Thanks for helping take care of this patientPlease call with questions at 1755 at 1906 RPT #:[id number] OF REPORTPRProgress [id number]:44:00G.[id number] able for patient pqthUVGHNYIESQVDXG4877-16-22N59:55:52 [facility] 2023-03-29 10:40:00 [id number] GAyPL+KPnaiY077IlAgF9potEeBDI jm1SSWTxAj0ycTeJ3kHYo4E2vbx5050-83-05I60:40:00 [facility] Progress NoteREPORT#:[id number] REPORT STATUS: SignedREPORT INITIALIZATION DATE:03/29/23 TIME: 1040 PATIENT: MICHAEL TRAN UNIT #: [id number]#: [id number] [address] AGE: 27 SEX: F ATTEND: Kaleb Roblero MDADM AUTHOR: Ruth Correa PAREPT SERVICE DT/TIME: 03/29/23 1040* ALL edits or amendments must be made on the electronic/computer document * Ruth Correa 03/29/23 1040:SubjectivePatient reports:Yes: abdominal pain, passing gas. No: black stools, bowel movement, nausea, rectal bleeding, vomiting. Review of SystemsConstitutional:Denies: chills, fever. Respiratory:Denies: SOB. Cardiovascular:Denies: chest pain. Neuro:Denies: headache. Objective GeneralVS/I O:Last Documented: Result Date Time B/P Mean 95.0 03/29 1118 B/P 123/79 03/29 111 Temp 37.0 03/29 111 Pulse 93 03/29 1118 Resp 20 03/29 1118 Pulse Ox 100 03/28 1915 PATIENT WEIGHT: Weight (lb): 185Weight (oz): Weight (kg): 84.100 Medications:Active Meds + DC'd Last 24 HrsDocusate Sodium (COLACE) 100 MG DAILY PO Vit/Iron/Folic Ac/DSS/DHA (/FE/FA/OM3/DHA/EPA) 1 CAP DAILY PO Magnesium Hydroxide (MILK OF MAGNESIA) 30 ML TID PRN PRN PO Polyethylene Glycol (MIRALAX) 17 GM DAILY PRN PRN PO Simethicone (MYLANTA GAS) 160 MG Q2H PRN PRN PO Acetaminophen (TYLENOL) 650 MG Q4H PRN PRN PO Al Hydrox/Mg Hydrox/Simethicone (MYLANTA) 30 ML TID PRN PRN PO Hydrocodone Bitart/Acetaminophen (NORCO 5/325) 1 TAB Q6H PRN PRN PO Lactated Ringer's (LACTATED RINGERS) 1,000 ML .Q8H IV Ondansetron HCl (ZOFRAN) 4 MG Q6H PRN PRN IV Dietitian nutrition assessmentThe data set between the solid lines has been imported from the dietitian's assessment. BMI Calculated: 31.75Nutrition related diagnosis: Nutrition diagnosis details: Nutrition problem: Nutrition etiology: Nutrition signs and symptoms: Nutrition prescription: Dietitian name: Assessment completed: Physical ExamGeneral appearance: alert, awake, orientedHEENT: atraumatic, normocephalicNeck: no JVDCardiovascular: normal S1/S2, regular rate rhythmRespiratory: equal breath sounds, symmetric expansion, no distressAbdomen: tenderness (SCAR), normal bowel sounds, soft, no distention, no guarding, no pulsatile mass, GravidExtremities: moves all, no edemaMusculoskeletal: full range of motion, normal inspection, painless range of motionNeuro/PHOTO BOOTH OPERATOR: alert, oriented X 3, no motor deficitsSkin: dry, intact, normal colorPsychiatry: normal affect, normal judgment/insight, normal mood ResultsFindings/Data:Laboratory Tests 03/29/23413:[Embedded Image Not Available]Laboratory Tests 03/29 414 Chemistry Sodium (134 - 147 mEq/L) 139 Potassium (3.4 - 5.0 mEq/L) 3.8 Chloride (100 - 108 mEq/L) 109 H Carbon Dioxide (21 - 33 mEq/l) 22 Anion Gap (0 - 20) 12 BUN (7 - 25 mg/dL) < 5 L Creatinine (0.6 - 1.3 mg/dL) 0.7 Glomerular Filtr Rate (110 - 120) 120.7 H Glucose (77 - 141 mg/dL) 84 Calcium (8.0 - 10.5 mg/dL) 8.7 Total Bilirubin (0.0 - 1.0 mg/dL) 0.60 AST (8 - 34 IUnit/L) 84 H ALT (10 - 49 IUnit/L) 107 H Total Alk Phosphatase (20 - 125 IUnit/L) 166 H Total Protein (6.4 - 8.2 g/dL) 6.0 L Albumin (3.4 - 5.0 g/dL) 2.60 L Laboratory Tests 03/29 414 Hematology WBC (4.5 - 11.0 x10 3/uL) 5.3 RBC (3.54 - 5.02 x10 6/uL) 4.04 Hgb (11.0 - 15.0 g/dL) 11.1 Hct (33.0 - 45.0 %) 34.1 MCV (81.0 - 99.0 fL) 84.4 MCH (27.0 - 33.0 pg) 27.5 MCHC (33.0 - 37.0 g/dL) 32.6 L RDW (11.5 - 14.5 %) 15.5 H Plt Count (150 - 400 x10 3/uL) 137 L MPV (7.0 - 9.0 fL) 11.9 H Neut % (Auto) (56.0 - 77.0 %) 63.6 Lymph % (Auto) (14.0 - 32.0 %) 27.1 [place] % (Auto) (4.8 - 9.0 %) 7.2 Eos % (Auto) (0.3 - 3.7 %) 1.3 Baso % (Auto) (0.0 - 2.0 %) 0.4 Neut # (Auto) (2.0 - 7.6 x10 3/uL) 3.35 Lymph # (Auto) (1.0 - 3.8 x10 3/uL) 1.43 [place] # (Auto) (0.1 - 0.8 x10 3/uL) 0.38 Eos # (Auto) (0.0 - 0.2 x10 3/uL) 0.07 Baso # (Auto) (0.0 - 0.2 x10 3/uL) 0.02 Abs Immat Gran (auto) (0.00 - 0.03 x10 3/uL) 0.02 Add Manual Diff NO Immature Gran % (0.0 - 2.0 %) 0.4 Nucleated RBC % (0 - 0 %) 0.0 Nucleated RBCs # (Man) (0.0 - 0.1 x10 3/uL) 0.00 Laboratory Tests 03/29 0414 Serology RPR (NONREACTIVE) NONREACTIVE Hepatitis A IgM Ab (NON REACT. INDEX) NON REACTIVE Hep Bs Antigen (NonReactive INDEX) NON REACTIVE Hep B Core IgM Ab (NON REACT. INDEX) NON REACTIVE Hepatitis C Antibody (NON REACT. INDEX) NON REACTIVE HIV 1 2 Antibody Screen (Nonreactive) Nonreactive Results: labs reviewed, vital signs reviewed Diagnosis, Assessment PlanProblem List/A P: 1. Elevated LFTs 2. Symptomatic cholelithiasis 3. Epigastric pain 4. 36 weeks gestation of Free Text A P:LFTs improving. Recommendations: 1. Gen surg has seen, appreciate input 2. Elevated ast/alt and alk phos, possibly related to gallstones, cont to monitor; improving3. Thrombocytopenia, monitor4. Viral hep panel negative; Based on clinical course, may consider chronic liver labs5. Constipation, on colace6. Pain control (judicious use of tylenol, med list includes tylenol 650mg prn and norco 5/325 prn) and antiemetics prn 7. Further recommendations may follow AttestationsAttestation needed: supervising physician Radu Landa 03/31/23 1313:Attestations Physician AttestationAgree w/findings plan:Agree with the findings and plan as documented by Madeline CALVILLO; at 1518 at 1313 RPT #:[id number] OF REPORTPRProgress [id number]:40:00G.[id number] able for patient qrrvGEGCJSZMIOJAJR9316-70-81T38:18:27 [facility] 2023-03-29 07:29:00 [id number] iHHnbJJY6vXx0ZWjruegP5qWarkQC 5hC1fXFJ5qZ2H9gnqgB779iovQI5765-06-21E08:29:00 [facility] ([facility])OB Antepartum Prog NoteREPORT#:[id number] REPORT STATUS: SignedREPORT INITIALIZATION DATE:03/29/23 TIME: 728 PATIENT: MICHAEL TRAN UNIT #: [id number]#: [id number] [address] AGE: 27 SEX: F ATTEND: Kaleb Roblero MDADM AUTHOR: Kaleb Roblero MDREPT SERVICE DT/TIME: 03/29/23728* ALL edits or amendments must be made on the electronic/computer document * Subjective SubjectiveAdmission EGA: Weeks: 36 Days: 3Current EGA: Current EGA(wks): 36 Current EGA(days): 5 Objective Nursing Documentation ReviewNursing data:The data set between the solid lines has been imported from nursing documentation. Any exceptions have been noted below under Provider comments. ROM date: ROM time: Labor onset date: Labor onset time: Provider comments on imported nursing data: [] VS:Last Documented: Result Date Time B/P Mean 83.0 03/29 0543 B/P 116/63 03/29 05 Pulse 70 03/29 05 Pulse Ox 100 03/28 1915 Temp 36.9 03/28 1915 Resp 18 03/28 1915 Vital SignsDate Temp Pulse Resp B/P B/P Mean Pulse Ox DsZ325/20-03/29 36.9-37.0 68-81 - 110-134/55-81 75.0-103.0 100 PATIENT WEIGHT: Weight (lb): 185Weight (oz): Weight (kg): 84.100 HEENT: normocephalic w/o injuryLungs: unlabored breathingNeuro: Exam: alert, oriented x3, normal speechAbdomen: gravid, soft, no abnormal tenderness, no guarding, RUQ tenderness to deep palpationLower extremities: Edema: none Stephany's sign: negative Calf tenderness: negativeBaby A: Baby A FHR category: category 1Findings/data:Laboratory Tests: 03/29 03/28 0414 0742 Chemistry Sodium (134 - 147 mEq/L) 139 Potassium (3.4 - 5.0 mEq/L) 3.8 Chloride (100 - 108 mEq/L) 109 H Carbon Dioxide (21 - 33 mEq/l) 22 Anion Gap (0 - 20) 12 BUN (7 - 25 mg/dL) < 5 L Creatinine (0.6 - 1.3 mg/dL) 0.7 Glomerular Filtr Rate (110 - 120) 120.7 H Glucose (77 - 141 mg/dL) 84 POC Glucose (70 - 110 MG/DL) 77 Calcium (8.0 - 10.5 mg/dL) 8.7 Total Bilirubin (0.0 - 1.0 mg/dL) 0.60 AST (8 - 34 IUnit/L) 84 H ALT (10 - 49 IUnit/L) 107 H Total Alk Phosphatase (20 - 125 IUnit/L) 166 H Total Protein (6.4 - 8.2 g/dL) 6.0 L Albumin (3.4 - 5.0 g/dL) 2.60 L Hematology WBC (4.5 - 11.0 x10 3/uL) 5.3 RBC (3.54 - 5.02 x10 6/uL) 4.04 Hgb (11.0 - 15.0 g/dL) 11.1 Hct (33.0 - 45.0 %) 34.1 MCV (81.0 - 99.0 fL) 84.4 MCH (27.0 - 33.0 pg) 27.5 MCHC (33.0 - 37.0 g/dL) 32.6 L RDW (11.5 - 14.5 %) 15.5 H Plt Count (150 - 400 x10 3/uL) 137 L MPV (7.0 - 9.0 fL) 11.9 H Neut % (Auto) (56.0 - 77.0 %) 63.6 Lymph % (Auto) (14.0 - 32.0 %) 27.1 [place] % (Auto) (4.8 - 9.0 %) 7.2 Eos % (Auto) (0.3 - 3.7 %) 1.3 Baso % (Auto) (0.0 - 2.0 %) 0.4 Neut # (Auto) (2.0 - 7.6 x10 3/uL) 3.35 Lymph # (Auto) (1.0 - 3.8 x10 3/uL) 1.43 [place] # (Auto) (0.1 - 0.8 x10 3/uL) 0.38 Eos # (Auto) (0.0 - 0.2 x10 3/uL) 0.07 Baso # (Auto) (0.0 - 0.2 x10 3/uL) 0.02 Abs Immat Gran (auto) (0.00 - 0.03 x10 3/uL) 0.02 Add Manual Diff NO Immature Gran % (0.0 - 2.0 %) 0.4 Nucleated RBC % (0 - 0 %) 0.0 Nucleated RBCs # (Man) (0.0 - 0.1 x10 3/uL) 0.00 Serology Hepatitis A IgM Ab (NON REACT. INDEX) NON REACTIVE Hep Bs Antigen (NonReactive INDEX) NON REACTIVE Hep B Core IgM Ab (NON REACT. INDEX) NON REACTIVE Hepatitis C Antibody (NON REACT. INDEX) NON REACTIVE HIV 1 2 Antibody Screen (Nonreactive) Nonreactive Diagnosis, Assessment Plan Diagnosis, Assessment PlanFree text A P:Gall stones with elevated liver enzymes. Trending down today. Will continue conservative management and move up induction of labor to 37 weeks if pain and elevated LFTs persist. GI and Gen Surgery recommendations and consults appreciated at 0731 RPT #:[id number] OF REPORTPRProgress ptnp9566-87-17T53:29:00G.[id number] able for patient miivQVBHOXHWVNELZI8165-62-97P79:32:11 [facility] 2023-03-28 17:52:00 [id number]/e [id number]/ZXuyw7FgLrKzX9V qTI956hLO2ZRgTXJQwPimEPm5B80341-43-89Y42:52:00 [facility] HospitalGeneral Surgery Consult NoteREPORT#:[id number] REPORT STATUS: SignedREPORT INITIALIZATION DATE:03/28/23 TIME: 1751 PATIENT: MICHAEL TRAN UNIT #: [id number]#: [id number] [address] [birth year] AGE: 27 SEX: F ATTEND: Kaleb Roblero MDADM AUTHOR: Giselle Spencer APRDEVONTEPREPT SERVICE DT/TIME: 03/28/231751* ALL edits or amendments must be made on the electronic/computer document * Giselle Spencer 03/28/23 9903:History of Present IllnessHPI:The patient was seen in room 345 at the request of the attneding physician as a general surgery consult. CC: Abd pain, also 36wk HPI: Ms. Tran is a 27-year-old female who is 36 weeks with a past medical history significant for gestational diabetes and cholelithiasis presenting to the hospital for epigastric pain. She reports pain can radiate to the right upper quadrant area and back. Aggravating factors: eating. Other associated symptoms include nausea and constipation. She denies any fever, chills, headache, chest pain, shortness of breath, vomiting, hematemesis, coffee-ground emesis, melena, hematochezia, diarrhea, or myalgias. An abdominal ultrasound was completed which revealed cholelithiasis and right-sided hydronephrosis. Will follow for general surgery. Past medical/surgical history:Fibroid, ovarian mass, wisdom teeth Allergies:NKA Social history:Denies smoking, alcohol, and drug use Family history:Denies bleeding problems, and problems with anesthesia Medications:Home medications reviewed, no blood thinner use Review of systems:As above; otherwise, negative to include neurologic, eyes, ENT, CV, respiratory,GI, musculoskeletal, , skin, psychiatric, hematologic, and allergy. Objective Physical ExamVS/I OLast Documented: Result Date Time B/P Mean 75.0 03/28 1513 B/P 111/55 03/28 1513 Temp 37.0 03/28 151 Pulse 76 03/28 1513 Resp 20 03/28 1513 Pulse Ox 99 03/27 0242 Vital SignsDate Temp Pulse Resp B/P B/P Mean Pulse Ox XwA026/19-03/28 36.8-37.0 68-81 - 110-137/55-80 75.0-100.0 PATIENT WEIGHT:Weight (lb): 185Weight (kg): 84.100 ResultsFindings/Data:Laboratory Tests: 03/28 03/28 0742 0510 Chemistry POC Glucose (70 - 110 MG/DL) 77 Total Bilirubin (0.0 - 1.0 mg/dL) 0.60 Direct Bilirubin (0.1 - 0.3 MG/DL) 0.20 Indirect Bilirubin (MG/DL) 0.40 AST (8 - 34 IUnit/L) 107 H ALT (10 - 49 IUnit/L) 119 H Total Alk Phosphatase (20 - 125 IUnit/L) 170 H Total Protein (6.4 - 8.2 g/dL) 5.8 L Albumin (3.4 - 5.0 g/dL) 2.60 L Results: labs reviewed, vital signs reviewed, vital signs stable, US results reviewed, current med profile rev'd Free Text Obj NotesFree Text Obj Notes:Constitutional: GCS 15, patient awake, alert, no acute distress, HR, BP, O2 saturation reviewed in recordsEyes: pupils equal, round, reactive to light, EOMIHENT: normal cephalic, atraumatic, no facial tenderness or crepitus, normal external inspection of ears/nose, no septal hematoma.Neck: trachea midline, no crepitus, thyroid without massCV: regular rate, rhythm, bilateral radial pulses 2+, no cyanosis, no edema, no pulsatile abdominal massRespiratory: lungs clear bilaterally, respirations even and unlabored, no tenderness to palpation, normal inspection of chest, no crepitusAbdomen: soft, gravid, no masses, no hernia notedGU: normal external genitalia, pelvis stableLymph nodes: no cervical or supraclavicular masses notedMusculoskeletal:-All extremities without focal tenderness, without deformity, with ROM intactSkin: skin warm to palpationPsychiatric: normal mood and affect, memory intactNeurologic: face symmetrical. Bilateral upper and lower extremity sensation intact Diagnosis, Assessment Plan Free Text DxA P NotesFree Text DxA P Notes:Problems:Abd pain Active Issues: GI prophylaxis: dietLines/Garcia/ETT: PIV Consultants: General surgery, Dr. Azul, Dr. RungtaDr. Arthur Procedures: Plan:Pt was seen and evaluated with Dr Augustin, who determined the POC Abdominal pain / cholelithiasis* admit to [facility]* following for general surgery* Abd US completed* recommend low fat bland diet as tolerated* patient with symptomatic cholelithaisis that has become persistent with pain increase with PO intake. Recommend cholecystectomy this admission, but ideally , patient reports that she is scheduled for induction due to gestastional diabetes on 04/11, patient is non-toxic, cholecystectomy is nonemergent at this time, patient may also be evaluated as outpatient for cholecystectomy , however given the duration and increasing discomfortpatient would benefit from cholecystectomy sooner rather than later* will defer decision to induce to [facility]* may contact surgeon with our group at [phone] once delivery has occured or sooner with questions or to discuss plan further* multimodal pain control with IV/PO narcotic and non-narcotic medications* recommend Bentyl as needed for cramping pain Diet: low fat diet as toleratedLabs: per primary teamCode status: Full codeMedical Decision Making: In the event the patient is incapacitated and not able to make their own medical decisions, they have elected [], contact number [], tomake medical decisions for them.Dispo: Admit; will continue to monitor for ICU needs or any further changes to level of care Quality: Trauma Gen Surg Advanced Care Plan 65 or OlderDiscussed with: patient Current MedicationsCurrent medication review:I attest that the foregoing medication list in the medical record is true, accurate, and complete to the best of my knowledge. Russ Augustin 04/11/23 0657:History - Adult longitudinalAllergies:Coded Allergies:No Known Allergies (04/04/23) Attestations Physician AttestationAgree w/findings plan:I was present with Giselle Spencer NP during the history and examination. I discussed the case and agree with the findings and plan as documented in Giselle Spencer's note. Labs reviewed. Pertinent imaging personally reviewed. Discussed plan with other members of the healthcare team. at 3150 at 0658 RPT #:[id number] OF REPORTLDRbkxaelvjdkm9984-82-73Q14:52:00G.PDOC2 [id number] for patient gqwdIPDLRPPIYTDKDN8525-57-44X94:20:50 [facility] 2023-03-28 11:56:00 [id number] [id number] rix7ZmfM668GeWA8R019tw/Naqm3311-29-76A52:56:00 [facility] ([facility])GE Consultation NoteREPORT#:[id number] REPORT STATUS: SignedREPORT INITIALIZATION DATE:03/28/23 TIME: 115 PATIENT: MICHAEL TRAN UNIT #: [id number]#: [id number] [address] [birth year] AGE: 27 SEX: F ATTEND: Kaleb Roblero MDADM AUTHOR: Ruth Correa PAREPT SERVICE DT/TIME: 03/28/23 1156* ALL edits or amendments must be made on the electronic/computer document * Ruth Correa 03/28/23 1156:History of Present IllnessRequesting clinician: GEOVANNI Devineeason for consult:36.5 weeks; elevated LFTs; cholelithiasisPCP:PCP: Kaleb Roblero MD HPI:This is a 27-year-old female who is 36 weeks with a past medical history significant for gestational diabetes and cholelithiasis presenting to the hospital for epigastric pain. She reports pain can radiate to the right upper quadrant area and back. Aggravating factors: eating. Other associated symptoms include nausea and constipation. She denies any fever, chills, headache, chest pain, shortness of breath, vomiting, hematemesis, coffee-ground emesis, melena, hematochezia, diarrhea, or myalgias. An abdominal ultrasound wascompleted which revealed cholelithiasis and right-sided hydronephrosis. Recent labs significant for hemoglobin 10.6, hematocrit 32.6, platelet 144, AST 107, ALT 119, alk phosphatase 170, and albumin 2.6. GI was consulted for elevated LFTs and cholelithiasis. Patient denies any personal or family hx of liver disease. She denies any significant alcohol use, excessive Tylenol use, herbal supplements, or new medications. She reports a history of intermittent pruritus, especially in the hands, however states this is more allergic as it was present prior to her . She denies any history of hepatitis C or B. Sheis unsure of elevated liver labs in the outpatient settting. History - Adult longitudinalSmoking status for patients 13 years old or older: Never SmokerMedications:Current Hospital Medications:Central Nervous System Agents Sig/Cristina Start time Last Medication Dose Route Stop Time Status Admin Acetaminophen 650 MG Q4H PRN PRN 03/27 0230 AC 03/28 (TYLENOL) PO 06/25 228 0945 Hydrocodone Bitart/ 1 TAB Q6H PRN PRN 03/27 023 AC 03/27 Acetaminophen PO 04/01 229 2302 (NORCO 5/325) Electrolytic, Caloric, And Jonathon Sig/Cristina Start time Last Medication Dose Route Stop Time Status Admin Lactated Ringer's 1,000 ML .Q8H 03/27 230 AC (LACTATED RINGERS) IV 06/25 228 Gastrointestinal Drugs Sig/Cristina Start time Last Medication Dose Route Stop Time Status Admin Docusate Sodium 100 MG DAILY 03/27 09 AC 03/28 (COLACE) PO 06/25 0859 0944 Magnesium Hydroxide 30 ML TID PRN PRN 03/27 0315 AC (MILK OF MAGNESIA) PO 06/25 031 Polyethylene Glycol 17 GM DAILY PRN PRN 03/27 0315 AC (MIRALAX) PO 06/25 0314 Simethicone 160 MG Q2H PRN PRN 03/27 0315 AC (MYLANTA GAS) PO 06/25 031 Al Hydrox/Mg Hydrox/ 30 ML TID PRN PRN 03/27 023 AC 03/27 Simethicone PO 06/25 228 1506 (MYLANTA) Ondansetron HCl 4 MG Q6H PRN PRN 03/27 023 AC (ZOFRAN) IV 06/25 228 Vitamins Sig/Cristina Start time Last Medication Dose Route Stop Time Status Admin Vit/Iron/ 1 CAP DAILY 03/27 09 AC 03/28 Folic Ac/DSS/DHA PO 06/25 0859 0944 (/FE/FA/OM3/ DHA/EPA) Review of SystemsConstitutional:Denies: chills, fever. Respiratory:Denies: SOB. Cardiovascular:Denies: chest pain. GI:Reports: abdominal pain, constipation, nausea. Denies: anorexia, diarrhea, dysphagia, GERD, hematemesis, hematochezia, hiatal hernia, melena, rectal pain, vomiting. Neuro:Denies: headache. All systems rev neg: except as marked Objective Physical ExamVS/I O:Last Documented: Result Date Time B/P Mean 82.0 03/28 1122 B/P 110/65 03/28 1122 Temp 36.9 03/28 1122 Pulse 81 03/28 112 Resp 18 03/28 112 Pulse Ox 99 03/27 0242 PATIENT WEIGHT: Weight (lb): 185Weight (oz): Weight (kg): 84.100 Medications:Active Meds + DC'd Last 24 HrsDocusate Sodium (COLACE) 100 MG DAILY PO Vit/Iron/Folic Ac/DSS/DHA (/FE/FA/OM3/DHA/EPA) 1 CAP DAILY PO Magnesium Hydroxide (MILK OF MAGNESIA) 30 ML TID PRN PRN PO Polyethylene Glycol (MIRALAX) 17 GM DAILY PRN PRN PO Simethicone (MYLANTA GAS) 160 MG Q2H PRN PRN PO Acetaminophen (TYLENOL) 650 MG Q4H PRN PRN PO Al Hydrox/Mg Hydrox/Simethicone (MYLANTA) 30 ML TID PRN PRN PO Hydrocodone Bitart/Acetaminophen (NORCO 5/325) 1 TAB Q6H PRN PRN PO Lactated Ringer's (LACTATED RINGERS) 1,000 ML .Q8H IV Ondansetron HCl (ZOFRAN) 4 MG Q6H PRN PRN IV General appearance: alert, awake, orientedHEENT: atraumatic, normocephalicNeck: no JVDCardiovascular: normal S1/S2, regular rate rhythmRespiratory: equal breath sounds, symmetric expansion, no distressAbdomen: tenderness (SCAR), normal bowel sounds, soft, no distention, no guarding, no pulsatile mass, GravidExtremities: moves all, no edemaMusculoskeletal: full range of motion, normal inspection, painless range of motionNeuro/PHOTO BOOTH OPERATOR: alert, oriented X 3, no motor deficitsSkin: dry, intact, normal colorPsychiatry: normal affect, normal judgment/insight, normal mood ResultsFindings/Data:Laboratory Tests: 03/28 03/28 03/27 03/27 0742 0510 0505 0026Chemistry Sodium (134 - 147 mEq/L) 140 138 Potassium (3.4 - 5.0 mEq/L) 3.7 4.2 Chloride (100 - 108 mEq/L) 109 H 107 Carbon Dioxide (21 - 33 mEq/l) 21 20 L Anion Gap (0 - 20) 14 15 BUN (7 - 25 mg/dL) < 5 L 5 L Creatinine (0.6 - 1.3 mg/dL) 0.7 0.7 Glomerular Filtr Rate (110 - 120) 120.7 H 120.7 H Glucose (77 - 141 mg/dL) 92 92 POC Glucose (70 - 110 MG/DL) 77 Calcium (8.0 - 10.5 mg/dL) 8.6 8.5 Total Bilirubin (0.0 - 1.0 mg/dL) 0.60 0.70 0.70 Direct Bilirubin (0.1 - 0.3 MG/DL) 0.20 Indirect Bilirubin (MG/DL) 0.40 AST (8 - 34 IUnit/L) 107 H 108 H 127 H ALT (10 - 49 IUnit/L) 119 H 103 H 116 H Total Alk Phosphatase (20 - 125 IUnit/L) 170 H 162 H 188 H Total Protein (6.4 - 8.2 g/dL) 5.8 L 5.7 L 6.9 Albumin (3.4 - 5.0 g/dL) 2.60 L 2.60 L 3.00 L Amylase (30 - 118 UNITS/L) 63 Lipase (13 - 57 U/L) 52Hematology WBC (4.5 - 11.0 x10 3/uL) 5.1 5.9 RBC (3.54 - 5.02 x10 6/uL) 3.85 4.26 Hgb (11.0 - 15.0 g/dL) 10.6 L 11.8 Hct (33.0 - 45.0 %) 32.6 L 36.2 MCV (81.0 - 99.0 fL) 84.7 85.0 MCH (27.0 - 33.0 pg) 27.5 27.7 MCHC (33.0 - 37.0 g/dL) 32.5 L 32.6 L RDW (11.5 - 14.5 %) 15.6 H 15.7 H Plt Count (150 - 400 x10 3/uL) 144 L 182 MPV (7.0 - 9.0 fL) 12.3 H 13.5 H Neut % (Auto) (56.0 - 77.0 %) 62.7 64.6 Lymph % (Auto) (14.0 - 32.0 %) 29.6 28.0 [place] % (Auto) (4.8 - 9.0 %) 6.5 5.9 Eos % (Auto) (0.3 - 3.7 %) 0.6 0.5 Baso % (Auto) (0.0 - 2.0 %) 0.2 0.3 Neut # (Auto) (2.0 - 7.6 x10 3/uL) 3.17 3.82 Lymph # (Auto) (1.0 - 3.8 x10 3/uL) 1.50 1.66 [place] # (Auto) (0.1 - 0.8 x10 3/uL) 0.33 0.35 Eos # (Auto) (0.0 - 0.2 x10 3/uL) 0.03 0.03 Baso # (Auto) (0.0 - 0.2 x10 3/uL) 0.01 0.02 Abs Immat Gran (auto) (0.00 - 0.03 0.02 0.04 Hx10 3/uL) Immature Gran % (0.0 - 2.0 %) 0.4 0.7 Nucleated RBC % (0 - 0 %) 0.0 0.0 Nucleated RBCs # (Man) (0.0 - 0.1 x10 3/uL) 0.00 0.00 Immature Plt Fraction (0.9 - 11.2 %) 16.2 HUrines Urine Color (YEL/STRAW) YELLOW Urine Appearance (CLEAR) CLEAR Urine pH (5.0 - 7.0) 6.0 Ur Specific Union (1.005 - 1.030) 1.003 L Urine Protein (NEGATIVE) NEGATIVE Urine Glucose (UA) (NEGATIVE) NEGATIVE Urine Ketones (NEGATIVE) TRACE H Urine Blood (NEGATIVE) NEGATIVE Urine Nitrite (NEGATIVE) NEGATIVE Urine Bilirubin (NEGATIVE) NEGATIVE Urine Urobilinogen (0.2 - 1.0 mg/dL) 0.2 Ur Leukocyte Esterase (NEGATIVE) NEGATIVE Urine RBC (0 - 3 RBC/HPF) 0-3 Urine WBC (0 - 3 WBC/HPF) 0-3 Ur Squamous Epith Cells (NONE SEEN /HPF) 0-5 Urine Bacteria (NONE SEEN /HPF) NONE SEEN Radiology data:Recent Impressions:ULTRASOUND - US ABDOMEN [facility] 03/27 0037 Report Impression - Status: SIGNED Entered: 03/27/2023 0114 Impression: 1. Cholelithiasis.2. Right-sided hydronephrosis.Impression By: JosephVRNikky Irene M.D. Results: labs reviewed, vital signs reviewed, US results reviewed Diagnosis, Assessment PlanProblem List/A P: 1. Elevated LFTs 2. Symptomatic cholelithiasis 3. Epigastric pain 4. 36 weeks gestation of Free Text DxA P NotesFree Text DxA P Notes:This is a 27-year-old female with elevated liver enzymes and alk phosphatase. Ultrasound revealed cholelithiasis without evidence of CBD dilatation, measuring2 mm. Blood pressure has been stable. No edema. Recommendations: 1. Await general surgery consultation2. Elevated ast/alt and alk phos, possibly related to gallstones, cont to monitor 3. Monitor H/h and transfuse prn4. Low plts yesterday, will recheck labs tomorrow5. Will screen for viral hep panel6. Based on clinical course, may consider chronic liver labs7. US reviewed, based on clinical course, may consider MRCP8. Constipation, on colace9. Pain control (judicious use of tylenol, med list includes tylenol 650mg prn and norco 5/325 prn) and antiemetics prn 10. Further recommendations may follow AttestationsAttestation needed: supervising physician Radu Landa 03/31/23 1312:History - Adult longitudinalAllergies:Coded Allergies:No Known Allergies (03/30/23) Attestations Physician AttestationAgree w/findings plan:Agree with the findings and plan as documented by Madeline CALVILLO; at 1250 at 1312 RPT #:[id number] OF REPORTZQFnczjejcnezt0889-30-72D89:56:00G.PDOC2 [id number] for patient bfpfOASIBERCHYOYXA9954-69-04S30:50:49 [facility] 2023-03-28 07:31:00 [id number] IGaxYiYSSbfsA/3hzsaB64rCsOYS9 JdGZn6CY8ghd5jOtl1x7YbtO5KD9464-28-65B53:31:00 [facility] ([facility])OB Antepartum Prog NoteREPORT#:[id number] REPORT STATUS: SignedREPORT INITIALIZATION DATE:03/28/23 TIME: 730 PATIENT: MICHAEL TRAN UNIT #: [id number]#: [id number] [address] [birth year] AGE: 27 SEX: F ATTEND: Kaleb Roblero MDA AUTHOR: Kaleb Roblero MDREPT SERVICE DT/TIME: 03/28/23730* ALL edits or amendments must be made on the electronic/computer document * Subjective SubjectiveAdmission EGA: Weeks: 36 Days: 3Current EGA: Current EGA(wks): 36 Current EGA(days): 4Patient reports: Patient reports: Yes: complaints, abdominal pain, normal movement. No: vaginal bleeding, leaking fluid, contractions, headache, blurred vision, scotomata, fever, chills. Objective Nursing Documentation ReviewNursing data:The data set between the solid lines has been imported from nursing documentation. Any exceptions have been noted below under Provider comments. ROM date: ROM time: Labor onset date: Labor onset time: Provider comments on imported nursing data: [] VS:Last Documented: Result Date Time B/P Mean 89.0 03/28 514 B/P 126/69 03/28 514 Pulse 70 03/28 514 Temp 36.8 03/27 1915 Resp 16 03/27 1915 Pulse Ox 99 03/27 0242 Vital Signs Date Temp Pulse Resp B/P B/P Mean Pulse Ox FiO2 03/27-03/28 36.8 70-90 16 111-137/56-80 78.0-100.0 PATIENT WEIGHT: Weight (lb): 185Weight (oz): Weight (kg): 84.100 Medications:Active Meds + DC'd Last 24 HrsDocusate Sodium (COLACE) 100 MG DAILY PO Vit/Iron/Folic Ac/DSS/DHA (/FE/FA/OM3/DHA/EPA) 1 CAP DAILY PO Magnesium Hydroxide (MILK OF MAGNESIA) 30 ML TID PRN PRN PO Polyethylene Glycol (MIRALAX) 17 GM DAILY PRN PRN PO Simethicone (MYLANTA GAS) 160 MG Q2H PRN PRN PO Acetaminophen (TYLENOL) 650 MG Q4H PRN PRN PO Al Hydrox/Mg Hydrox/Simethicone (MYLANTA) 30 ML TID PRN PRN PO Hydrocodone Bitart/Acetaminophen (NORCO 5/325) 1 TAB Q6H PRN PRN PO Lactated Ringer's (LACTATED RINGERS) 1,000 ML .Q8H IV Ondansetron HCl (ZOFRAN) 4 MG Q6H PRN PRN IV HEENT: normocephalic w/o injuryLungs: unlabored breathingNeuro: Exam: alert, oriented x3, normal speechAbdomen: gravid, soft, no abnormal tenderness, no guarding, RUQ tenderness to deep palpationLower extremities: Edema: none Stephany's sign: negative Calf tenderness: negativeBaby A: Baby A FHR category: category 1Findings/data:Laboratory Tests: 03/28 510 Chemistry Total Bilirubin (0.0 - 1.0 mg/dL) 0.60 Direct Bilirubin (0.1 - 0.3 MG/DL) 0.20 Indirect Bilirubin (MG/DL) 0.40 AST (8 - 34 IUnit/L) 107 H ALT (10 - 49 IUnit/L) 119 H Total Alk Phosphatase (20 - 125 IUnit/L) 170 H Total Protein (6.4 - 8.2 g/dL) 5.8 L Albumin (3.4 - 5.0 g/dL) 2.60 L Diagnosis, Assessment Plan Diagnosis, Assessment PlanFree text A P:Gall stones with elevated liver enzymes. Pain persistent and elevated LFT trending slightly higher despite low fat diet. Will consult surgery and GI for further recommendations at 0734 RPT #:[id number] OF REPORTPRProgress hnup1542-10-10P20:31:00G.ILGZ51936741-5289TSHewnf able for patient kkxwXSOKZZWNVUHRIZ1155-38-30M78:35:10 [facility] 2023-03-27 12:04:00 [id number]+I blNE2C5o9B+kjDzE0q+gCH8sGfYI7 1Eat9ukdAdqv4x9icofR9uMFKya7269-55-91L70:04:00 [facility] ([facility])OB Antepartum Prog NoteREPORT#:[id number] REPORT STATUS: SignedREPORT INITIALIZATION DATE:03/27/23 TIME: 1203 PATIENT: MICHALE TRAN UNIT #: [id number]#: [id number] [address] [birth year] AGE: 27 SEX: F ATTEND: Kaleb Roblero MDADM AUTHOR: Kaleb Roblero MDREPT SERVICE DT/TIME: 03/27/23 1204* ALL edits or amendments must be made on the electronic/computer document * Subjective SubjectivePatient reports: Patient reports: Yes: abdominal pain, normal movement. No: complaints, vaginal bleeding, leaking fluid, contractions, headache, blurred vision, scotomata, fever, chills. Objective Nursing Documentation ReviewNursing data:The data set between the solid lines has been imported from nursing documentation. Any exceptions have been noted below under Provider comments. ROM date: ROM time: Labor onset date: Labor onset time: Provider comments on imported nursing data: [] VS:Last Documented: Result Date Time B/P Mean 78.0 03/27 0909 B/P 119/56 03/27 0909 Pulse 90 03/27 0909 Resp 18 03/27 0505 Temp 36.3 03/27 0258 Pulse Ox 99 03/27 0242 Vital SignsDate Temp Pulse Resp B/P B/P Mean Pulse Ox VnW835/-03/27 36.3-36.7 82-110 16-18 119-134/56-87 78.0-104.0 91-99 PATIENT WEIGHT: Weight (lb): 185Weight (oz): Weight (kg): 84.100 HEENT: normocephalic w/o injuryLungs: unlabored breathingNeuro: Exam: alert, oriented x3, normal speechAbdomen: gravid, soft, no abnormal tenderness, no guardingLower extremities: Edema: none Stephany's sign: negative Calf tenderness: negativeBaby A: Baby A FHR category: category 1 Diagnosis, Assessment Plan Diagnosis, Assessment PlanFree text A P:Gall stones with elevated liver enzymes. Pain subsiding. Will treat conservatively with low fat diet and defer surgical intervention till after delivery as long as she is asymptomatic and LFTs normalize. Will recheck in am at 1207 RPT #:[id number] OF REPORTPRProgress wxjy3104-36-22M05:04:00G.ORHG61955459-7801XIJcbmu able for patient aiqwTAWLKZWWGLWCXA6058-09-73F40:07:41 [facility] 2023-03-27 02:20:00 [id number] NFpF7Sf9zn6NrM2nFYItd5zMRe6JZ l+AmmtzqFW3tqGJNS4mOb7KUKNb3499-37-68W71:20:00 [facility] ([facility])OB Admission / H PREPORT#:[id number] REPORT STATUS: SignedREPORT INITIALIZATION DATE:03/27/23 TIME: 219 PATIENT: MICHAEL TRAN UNIT #: [id number]#: [id number] ROOM/BED: [place] [address]DOB: [birth year] AGE: 27 SEX: F ATTEND: Kaleb Roblero [facility] DT: AUTHOR: Ciara Arthur DOREPT SERVICE DT/TIME: 03/27/23219* ALL edits or amendments must be made on the electronic/computer document * Past HistoryAllergies:Coded Allergies:No Known Allergies (03/27/23) Diagnosis, Assessment Plan Diagnosis, Assessment PlanFree Text A P:ABBY HistoryChief complaint: discomfortHPI:27 y/o EDC 04/20/23 at 36 w 4 day c/o epigastric pain since 1600 yesterday. Does have nausea but no vomiting, no cxn, RUQ pain. Pt denies leaking or bleeding, and has good mvmt. She tried to eat [employer] but not able and ended up eating chicken noodle soup.Was dx w the flu last week, and had a fever then but not currently. IOL set for April 11 , sounds like elective. G1 [address] Vicente, cardiac anomaly w/u flmrZPKK1Hiirsfqpr history: : 2 Abortus: 1 Living children: 0 Complications (prev preg): none Previous : noneCurrent : EDC: 04/20/23 EGA (weeks/days): 36 weeksConditions of : gestational diabetes, cardiac anomalyLabs: Blood type: unknownPast medical history: fibroid, ov mass noted prior to and d/t wanted to sx remove, but pt then was and pt moved states. Past surgical history: wisdom teethSocial history: single, no alcohol use, no tobacco use, no drug useMedications:Current Hospital Medications: PNVElectrolytic, Caloric, And Jonathon Sig/Cristina Start time Last Medication Dose Route Stop Time Status Admin Lactated Ringer's 1,000 ML BOLUS ONCE ONE 03/275 DC (LACTATED RINGERS) IV 03/27 0114 Gastrointestinal Drugs Sig/Cristina Start time Last Medication Dose Route Stop Time Status Admin Metoclopramide HCl 10 MG ONCE ONE 03/27 130 DC 03/27 (REGLAN) IV 03/27 131 0132 Famotidine 20 MG ONCE ONE 03/27 15 CAN (PEPCID) IV 03/27 0016 Ondansetron HCl 4 MG ONCE ONE 03/275 DC 03/27 (ZOFRAN) IV 03/27 0016 0040 AllergiesCoded Allergies:No Known Allergies (03/27/23) Review of SystemsConstitutional:Denies: fever. ENT:Denies: sore throat. Respiratory:Denies: non productive cough. GI:Reports: nausea. Denies: vomiting. :Reports: . Denies: vaginal bleeding. Neuro:Denies: headache. Objective GeneralVS:Last Documented: Result Date Time B/P Mean 98.0 03/27 0016 B/P 119/85 03/27 0016 Pulse 88 03/27 001 Pulse Ox 97 03/27 0013 Temp 98.1 03/26 2346 Resp 16 03/26 2344 Vital Signs Date Temp Pulse Resp B/P B/P Mean Pulse Ox FiO2 03/26-03/27 98.1 82-110 16 119-134/75-87 98.0-104.0 91-98 PATIENT WEIGHT: Weight (lb): 185Weight (oz): Weight (kg): 84.100 Physical ExamHEENT: normocephalic w/o injury, no scleral icterusLungs: unlabored breathingNeuro: Exam: alert, oriented x3, normal speechAbdomen: gravid, soft, no guarding, no rebound tenderness, mild ruq tenderness and epigastric painUterine activity: Monitor: toco Frequency (description): occasionalCervical/ exam: Dilatation (cm): 1 Effacement (%): 70 station: - 3 FHR evaluation: Baseline: 130 bpm Variability: moderate 6-25 bpm Accelerations: 15 X 15 Decelerations: none FHR category: category 1Membranes: Membranes: Intact ResultsFindings/Data:Laboratory Tests: 03/27 26 Chemistry Sodium (134 - 147 mEq/L) 138 Potassium (3.4 - 5.0 mEq/L) 4.2 Chloride (100 - 108 mEq/L) 107 Carbon Dioxide (21 - 33 mEq/l) 20 L Anion Gap (0 - 20) 15 BUN (7 - 25 mg/dL) 5 L Creatinine (0.6 - 1.3 mg/dL) 0.7 Glomerular Filtr Rate (110 - 120) 120.7 H Glucose (77 - 141 mg/dL) 92 Calcium (8.0 - 10.5 mg/dL) 8.5 Total Bilirubin (0.0 - 1.0 mg/dL) 0.70 AST (8 - 34 IUnit/L) 127 H ALT (10 - 49 IUnit/L) 116 H Total Alk Phosphatase (20 - 125 IUnit/L) 188 H Total Protein (6.4 - 8.2 g/dL) 6.9 Albumin (3.4 - 5.0 g/dL) 3.00 L Amylase (30 - 118 UNITS/L) 63 Lipase (13 - 57 U/L) 52 Hematology WBC (4.5 - 11.0 x10 3/uL) 5.9 RBC (3.54 - 5.02 x10 6/uL) 4.26 Hgb (11.0 - 15.0 g/dL) 11.8 Hct (33.0 - 45.0 %) 36.2 MCV (81.0 - 99.0 fL) 85.0 MCH (27.0 - 33.0 pg) 27.7 MCHC (33.0 - 37.0 g/dL) 32.6 L RDW (11.5 - 14.5 %) 15.7 H Plt Count (150 - 400 x10 3/uL) 182 MPV (7.0 - 9.0 fL) 13.5 H Neut % (Auto) (56.0 - 77.0 %) 64.6 Lymph % (Auto) (14.0 - 32.0 %) 28.0 [place] % (Auto) (4.8 - 9.0 %) 5.9 Eos % (Auto) (0.3 - 3.7 %) 0.5 Baso % (Auto) (0.0 - 2.0 %) 0.3 Neut # (Auto) (2.0 - 7.6 x10 3/uL) 3.82 Lymph # (Auto) (1.0 - 3.8 x10 3/uL) 1.66 [place] # (Auto) (0.1 - 0.8 x10 3/uL) 0.35 Eos # (Auto) (0.0 - 0.2 x10 3/uL) 0.03 Baso # (Auto) (0.0 - 0.2 x10 3/uL) 0.02 Abs Immat Gran (auto) (0.00 - 0.03 x10 3/uL) 0.04 H Immature Gran % (0.0 - 2.0 %) 0.7 Nucleated RBC % (0 - 0 %) 0.0 Nucleated RBCs # (Man) (0.0 - 0.1 x10 3/uL) 0.00 Immature Plt Fraction (0.9 - 11.2 %) 16.2 H Urines Urine Color (YEL/STRAW) YELLOW Urine Appearance (CLEAR) CLEAR Urine pH (5.0 - 7.0) 6.0 Ur Specific Union (1.005 - 1.030) 1.003 L Urine Protein (NEGATIVE) NEGATIVE Urine Glucose (UA) (NEGATIVE) NEGATIVE Urine Ketones (NEGATIVE) TRACE H Urine Blood (NEGATIVE) NEGATIVE Urine Nitrite (NEGATIVE) NEGATIVE Urine Bilirubin (NEGATIVE) NEGATIVE Urine Urobilinogen (0.2 - 1.0 mg/dL) 0.2 Ur Leukocyte Esterase (NEGATIVE) NEGATIVE Urine RBC (0 - 3 RBC/HPF) 0-3 Urine WBC (0 - 3 WBC/HPF) 0-3 Ur Squamous Epith Cells (NONE SEEN /HPF) 0-5 Urine Bacteria (NONE SEEN /HPF) NONE SEEN Recent Impressions:ULTRASOUND - US ABDOMEN LTD 03/277 Report Impression - Status: SIGNED Entered: 03/27/2023 0114 Impression: 1. Cholelithiasis.2. Right-sided hydronephrosis.Impression By: JosephVRNikky Irene M.D. Diagnosis, Assessment Plan Diagnosis, Assessment PlanFree Text A P:27 y/o P0010 at 36 w 4 day c/o RUQ painh/o ov mass, ahbutyzNRBB8bsaoj cardiac anomaly being evaluated and will be f/u after delivery(pt has moved recently to the area, but pt had similar issues back in 2008 but this is first time gallstones noted) Pt asking for ice chips, ok; may advance to bland dietRepeat labs this amIV fluids and pain mgmt if neededIf no improvement consider general surgery consult, and decide on delivery hi well (for now pt has IOL for April 11)F/u glucose. at 0220 at 0220 RPT #:[id number] OF REPORTHPHistory and physical kbwblodolzl1291-54-18I61:20:00G.[id number] AVAvailable for patient opaiJHVPUMRPMWQCSX3616-54-50G26:21:21 [facility] 2023-03-27 02:11:00 [id number] AUkkgzXhjlwhvUBVOmzAhfxM2Wsd1 SCdnfHF52rN7vuMBF1pyzhH4A502610-56-49P49:11:00 [facility] ([facility])ABBY Evaluation NoteREPORT#:[id number] REPORT STATUS: SignedREPORT INITIALIZATION DATE:03/27/23 TIME: 210 PATIENT: MICHAEL TRAN UNIT #: [id number]#: [id number] [facility] AGE: 27 SEX: F ATTEND: Kaleb Roblero [facility] DT: AUTHOR: Ciara ArthurEPT SERVICE DT/TIME: 03/27/23 021* ALL edits or amendments must be made on the electronic/computer document * See AddendumABBY HistoryChief complaint: discomfortHPI:27 y/o EDC 04/20/23 at 36 w 4 day c/o epigastric pain since 1600 yesterday. Does have nausea but no vomiting, no cxn, RUQ pain. Pt denies leaking or bleeding, and has good mvmt. She tried to eat [employer] but not able and ended up eating chicken noodle soup.Was dx w the flu last week, and had a fever then but not currently. IOL set for April 11 , sounds like elective. G1 [address] Vicente, cardiac anomaly w/u nektBSIZ0Nzbljbtjg history: : 2 Abortus: 1 Living children: 0 Complications (prev preg): none Previous : noneCurrent : EDC: 04/20/23 EGA (weeks/days): 36 weeksConditions of : gestational diabetes, cardiac anomalyLabs: Blood type: unknownPast medical history: fibroid, ov mass noted prior to and d/t wanted to sx remove, but pt then was and pt moved states. Past surgical history: wisdom teethSocial history: single, no alcohol use, no tobacco use, no drug useMedications:Current Hospital Medications: PNVElectrolytic, Caloric, And Jonathon Sig/Cristina Start time Last Medication Dose Route Stop Time Status Admin Lactated Ringer's 1,000 ML BOLUS ONCE ONE 03/27 15 DC (LACTATED RINGERS) IV 03/27 0114 Gastrointestinal Drugs Sig/Cristina Start time Last Medication Dose Route Stop Time Status Admin Metoclopramide HCl 10 MG ONCE ONE 03/27 130 DC 03/27 (REGLAN) IV 03/27 131 013 Famotidine 20 MG ONCE ONE 03/27 15 CAN (PEPCID) IV 03/27 16 Ondansetron HCl 4 MG ONCE ONE 03/27 15 DC 03/27 (ZOFRAN) IV 03/27 16 0040 AllergiesCoded Allergies:No Known Allergies (03/27/23) Review of SystemsConstitutional:Denies: fever. ENT:Denies: sore throat. Respiratory:Denies: non productive cough. GI:Reports: nausea. Denies: vomiting. :Reports: . Denies: vaginal bleeding. Neuro:Denies: headache. Objective GeneralVS:Last Documented: Result Date Time B/P Mean 98.0 03/27 0016 B/P 119/85 03/27 0016 Pulse 88 03/27 001 Pulse Ox 97 03/27 0013 Temp 98.1 03/26 2346 Resp 16 03/26 2344 Vital Signs Date Temp Pulse Resp B/P B/P Mean Pulse Ox FiO2 03/26-03/27 98.1 82-110 16 119-134/75-87 98.0-104.0 91-98 PATIENT WEIGHT: Weight (lb): 185Weight (oz): Weight (kg): 84.100 Physical ExamHEENT: normocephalic w/o injury, no scleral icterusLungs: unlabored breathingNeuro: Exam: alert, oriented x3, normal speechAbdomen: gravid, soft, no guarding, no rebound tenderness, mild ruq tenderness and epigastric painUterine activity: Monitor: toco Frequency (description): occasionalCervical/ exam: Dilatation (cm): 1 Effacement (%): 70 station: - 3 FHR evaluation: Baseline: 130 bpm Variability: moderate 6-25 bpm Accelerations: 15 X 15 Decelerations: none FHR category: category 1Membranes: Membranes: Intact ResultsFindings/Data:Laboratory Tests: 03/27 26 Chemistry Sodium (134 - 147 mEq/L) 138 Potassium (3.4 - 5.0 mEq/L) 4.2 Chloride (100 - 108 mEq/L) 107 Carbon Dioxide (21 - 33 mEq/l) 20 L Anion Gap (0 - 20) 15 BUN (7 - 25 mg/dL) 5 L Creatinine (0.6 - 1.3 mg/dL) 0.7 Glomerular Filtr Rate (110 - 120) 120.7 H Glucose (77 - 141 mg/dL) 92 Calcium (8.0 - 10.5 mg/dL) 8.5 Total Bilirubin (0.0 - 1.0 mg/dL) 0.70 AST (8 - 34 IUnit/L) 127 H ALT (10 - 49 IUnit/L) 116 H Total Alk Phosphatase (20 - 125 IUnit/L) 188 H Total Protein (6.4 - 8.2 g/dL) 6.9 Albumin (3.4 - 5.0 g/dL) 3.00 L Amylase (30 - 118 UNITS/L) 63 Lipase (13 - 57 U/L) 52 Hematology WBC (4.5 - 11.0 x10 3/uL) 5.9 RBC (3.54 - 5.02 x10 6/uL) 4.26 Hgb (11.0 - 15.0 g/dL) 11.8 Hct (33.0 - 45.0 %) 36.2 MCV (81.0 - 99.0 fL) 85.0 MCH (27.0 - 33.0 pg) 27.7 MCHC (33.0 - 37.0 g/dL) 32.6 L RDW (11.5 - 14.5 %) 15.7 H Plt Count (150 - 400 x10 3/uL) 182 MPV (7.0 - 9.0 fL) 13.5 H Neut % (Auto) (56.0 - 77.0 %) 64.6 Lymph % (Auto) (14.0 - 32.0 %) 28.0 [place] % (Auto) (4.8 - 9.0 %) 5.9 Eos % (Auto) (0.3 - 3.7 %) 0.5 Baso % (Auto) (0.0 - 2.0 %) 0.3 Neut # (Auto) (2.0 - 7.6 x10 3/uL) 3.82 Lymph # (Auto) (1.0 - 3.8 x10 3/uL) 1.66 [place] # (Auto) (0.1 - 0.8 x10 3/uL) 0.35 Eos # (Auto) (0.0 - 0.2 x10 3/uL) 0.03 Baso # (Auto) (0.0 - 0.2 x10 3/uL) 0.02 Abs Immat Gran (auto) (0.00 - 0.03 x10 3/uL) 0.04 H Immature Gran % (0.0 - 2.0 %) 0.7 Nucleated RBC % (0 - 0 %) 0.0 Nucleated RBCs # (Man) (0.0 - 0.1 x10 3/uL) 0.00 Immature Plt Fraction (0.9 - 11.2 %) 16.2 H Urines Urine Color (YEL/STRAW) YELLOW Urine Appearance (CLEAR) CLEAR Urine pH (5.0 - 7.0) 6.0 Ur Specific [place] (1.005 - 1.030) 1.003 L Urine Protein (NEGATIVE) NEGATIVE Urine Glucose (UA) (NEGATIVE) NEGATIVE Urine Ketones (NEGATIVE) TRACE H Urine Blood (NEGATIVE) NEGATIVE Urine Nitrite (NEGATIVE) NEGATIVE Urine Bilirubin (NEGATIVE) NEGATIVE Urine Urobilinogen (0.2 - 1.0 mg/dL) 0.2 Ur Leukocyte Esterase (NEGATIVE) NEGATIVE Urine RBC (0 - 3 RBC/HPF) 0-3 Urine WBC (0 - 3 WBC/HPF) 0-3 Ur Squamous Epith Cells (NONE SEEN /HPF) 0-5 Urine Bacteria (NONE SEEN /HPF) NONE SEEN Recent Impressions:ULTRASOUND - US ABDOMEN [facility] 03/27 37 Report Impression - Status: SIGNED Entered: 03/27/2023 0114 Impression: 1. Cholelithiasis.2. Right-sided hydronephrosis.Impression By: JosephVR5 Martha Irene M.D. Diagnosis, Assessment Plan Diagnosis, Assessment PlanFree Text A P:27 y/o P0010 at 36 w 4 day c/o RUQ painh/o ov mass, qxwrzbeCBES2aqlan cardiac anomaly being evaluated and will be f/u after delivery(pt has moved recently to the area, but pt had similar issues back in 2008 but this is first time gallstones noted) Pt asking for ice chips, ok; may advance to bland dietRepeat labs this amIV fluids and pain mgmt if neededIf no improvement consider general surgery consult, and decide on delivery hi well (for now pt has IOL for April 11)F/u glucose. at 0220 Addendum 1: 03/27/23 0228 by Ciara Arthur DO Will decide about general surgery consult in the AM. If pt clinically improved,consider outpt f/u w general sx; otherwise will order while admitted here. at 0229 RPT #:[id number] OF REPORTCLClinical uyoq1198-60-21A11:11:00G.YFPN85491632-1887XDYysdh able for patient jqttMURVBIVMFOBNSD9188-21-97S17:20:51 [facility] 2023-03-27 01:27:00 [id number] 0BudyhXJYwlsIhf0wBFAeyPS2h3wB a/q6OORZXEL0/X39zRYnaStVm+09246-81-49J39:27:00 [facility] ExamREPORT#:[id number] REPORT STATUS: SignedREPORT INITIALIZATION DATE:03/27/23 TIME: 126 PATIENT: MICHAEL TRAN UNIT #: [id number]#: [id number] ROOM/BED: [place] [address]DOB: [birth year] AGE: 27 SEX: F ATTEND: Kaleb Roblero MDADM DT: AUTHOR: Ciara Arthur DOREPT SERVICE DT/TIME: 03/27/23126* ALL edits or amendments must be made on the electronic/computer document * Medical Screening Exam Provider AttestationAttestation:The QMP MSE reviewed. Comments:Notified about pt about midnight.Provider at bedside at 0127.c/o epigastric pain at 0128 RPT #:[id number] OF REPORTCLClinical gkty3783-18-83U03:27:00G.KJVR69249576-4478KDAzyps able for patient bkxlQZNMXJBHOLICJI9911-88-97U19:19:27 [facility] 2023-01-17 08:51:00 [id number]/lqlyefF z2YvJqg1sUfuMPUmy+O0g+kEqm6YG U+3g/4M9mzFo6GbzJNUbgIIXU5a3366-96-23B90:51:00 [facility] ([facility])EMERGENCY PROVIDER REPORTREPORT#:[id number] REPORT STATUS: SignedDATE:01/17/23 TIME: 850 PATIENT: MICHAEL TRAN UNIT #: [id number]#: [id number] ROOM/BED:AGE: 27 SEX: F PCP PHYS: No Primary or Family PhysicianSERVICE AUTHOR: Margy Rizzo MD * ALL edits or amendments must be made on the electronic/computer document * HPI-Abd Pain F Under 40 Free Text HPI NotesFree Text HPI NotesCC: low back pain x 2 days History: R2T8LBB: 07/14/22EDD: 04/20/23GA: 61x7qTNX: ovarian massSymptoms: low pain with radiation to L legPain Scale: *7 out of 10 on pain scaleExacerbating Factors: noneAlleviating Factors: noneMeds Taken: TylenolObGyn: none (recently moved from [place]) Of note, Pt was to have first appoitment with Dr. Roblero at 1100 today; cancelled to come to the ER. States that she was told that she needs to repeat her anatomy scan, but unable to locate a ultrasound location 2/2 insurance issues. New appointment scheduled for 2 weeks. GeneralInitial Greet Date/Time 01/17/23 0856 PresentationChief Complaint lower back painHx Obtained From Patient Risk-Abd Pain F Under 40)( Ectopic Risk factors reviewed, No risk factors Review of Systems ROS StatementsAll systems rev neg except as marked. Free Text ROS NotesFree Text ROS NotesFocused Review of SystemsConstitutionalDenies: Chills, Fever, Lethargy. GIDenies: Abdominal pain, Diarrhea, Nausea, Vomiting. FemaleReports: , no vaginal bleedingMusculoskeletalDenies: Extremity pain. (+) back painEndocrineDenies: Polyuria, Weight loss. SkinDenies: Diaphoresis, Rash. NeurologicDenies: Change LOC, Dizziness, Focal weakness, Headache, Numbness, Slurred speech. Additional Review of SystemsRespiratoryDenies: Pleuritic pain, Shortness of breath. CardiovascularDenies: Chest pain, Dyspnea on exertion, Palpitations. Past Medical History - AdultStated Complaint BACK, ABDOMEN, LEFT LEG PAINAllergiesCoded Allergies:No Known Allergies (01/17/23) Home MedicationsDiscontinued ScriptsFAMOTIDINE (PEPCID) 40 MG PO BEDTIME FAMOTIDINE (PEPCID) 40 MG PO BEDTIME #30 TABS Prov: 10/19/22 DC: 01/17/23 0856 Changed since prior admitMAG HYDROX/AL HYDROX/SIMETH (MAG-AL PLUS 200-200-20 MG/5ML) 30 ML PO BEDTIME MAG HYDROX/AL HYDROX/SIMETH (MAG-AL PLUS 200-200-20 MG/5ML) 30 ML PO BEDTIME #200 ML Prov: 10/19/22 DC: 01/17/23 0856 Changed since prior admitSUCRALFATE (CARAFATE 1 GM/10 ML) 1 GM PO AC HS PRN heartburn SUCRALFATE (CARAFATE 1 GM/10 ML) 1 GM PO AC HS PRN heartburn #1200 ML Prov: 10/19/22 DC: 01/17/23 0856 Changed since prior admitPNV/FE FUM/FA ( MULTIVITAMIN) 1 TAB PO DAILY PNV/FE FUM/FA ( MULTIVITAMIN) 1 TAB PO DAILY #30 TABS Prov: 10/19/22 DC: 01/17/23 0856 Changed since prior admit Physical Exam Vital SignsVital SignsFirst Documented: Result Date Time Pulse Ox 99 01/17 0851 B/P 148/83 01/17 0851 B/P Mean 104 01/17 0851 O2 Delivery Room air 01/17 0851 Temp 98.2 01/17 0851 Pulse 99 01/17 0851 Resp 16 01/17 0851 Last Documented: Result Date Time Pulse Ox 100 01/17 1017 B/P 135/84 01/17 1017 B/P Mean 101 01/17 1017 O2 Delivery Room air 01/17 1017 Temp 98.5 01/17 1017 Pulse 85 01/17 1017 Resp 18 01/17 1017 Review of Vital Signs Reviewed, Vital signs normal Focused PEGeneral/Const General/Const Awake, Alert, Well appearingMS Head Head Atraumatic, NormocephalicEyes Eyes Atraumatic, PERRLEars/Nose/Throat Ears/Nose/Throat Airway patent, Mucous membranes moist, Pharynx NLResp/Chest Respiratory/Chest Breath sounds NL, Breath sounds = bilat, No respiratory distress, No rales, No rhonchi, No wheezingCardiovascular Cardiovascular Heart rate NL, Regular rhythm, Heart sounds NL, Peripheral circulation NLAbdomen/GI Abdomen/GI Soft, Non-tender, McBurney's non-tender, No guarding, No rebound, BS normoactive, No distention, No hernia, No palpable massMS Back Back Inspection NL, Non-tender, No CVA tendernessSkin Skin Color NL, Warm, Dry, Turgor NLGenitourinary Female Genitourinary External genitalia NL, No bleeding, No discharge, No cervical motion tend, Os closed, No adnexal mass, No adnexal tenderness, No uterine enlargement, No uterine mass, No lesions or rashRectum Rectum/Perineum Blood - occult heme neg, 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, No gross blood, No fissures, No hemorrhoids, Sphincter tone NLNeurologic Neurologic Oriented X3, Speech NL, No motor deficits, No sensory deficits Interpretation Diagnostics Lab Results InterpretationResultsLaboratory Tests: 01/17 0855 Urines Urine Color (YELLOW) YELLOW Urine Appearance (CLEAR) CLEAR Urine pH (5 - 9) 7.0 Ur Specific Union (1.001 - 1.035) 1.008 Urine Protein (NEG) NEGATIVE Urine Glucose (UA) (NEG) NEGATIVE Urine Ketones (NEG) NEGATIVE Urine Blood (NEG) NEG Urine Nitrite (NEG) NEG Urine Bilirubin (NEG) NEGATIVE Urine Urobilinogen (NEG mg/dL) NEGATIVE Ur Leukocyte Esterase (NEG) NEG Urine RBC (NONE SEEN #/hpf) 0-2 Urine WBC (NONE SEEN #/hpf) 0-2 Ur Epithelial Cells (RARE - FEW #/HPF) RARE Urine Bacteria (RARE - FEW /HPF) RARE Urine Mucus (NONE SEEN) RARE Urine HCG, Qual POSITIVE Lab StatementLaboratory studies reviewed and considered in the medical decision-making. Re-Evaluation MDM Free Text MDM NotesFree Text MDM NotesA/P: 27yo @ 26w5d AAF with PMH as above p/w back pain1. UA2. Meds3. Re-assessADDENDUMTime: 1010UA unremarkable. NST WNL. Pt re-assessed; symptoms improved. Results of work-up d/w Pt; voiced understanding. Ok for DC home with PCP follow-up )( Re-Evaluation/Progress #1)( Re-Eval Status ImprovedPlan Post Re-Eval Plan discharge TAD MDM NoteThere is no historical, physical exam, laboratory or imaging data that would suggest a need to consider or further evaluate the patient for thoracic aortic dissection at this time. I am no longer considering thoracic aortic dissection in the differential diagnosis. The timing of the onset of pain and the pain radiation pattern are not consistent with dissection. There has been no movementof pain from the chest to the back or to the abdomen, which would be consistent with a dissection process. The analysis of risks that would predispose to dissection does not indicate a need to further pursue the diagnosis. The patient's vital signs have been stable, there is no apparent aortic murmur, and there is either 1) no gross radial pulse differential and/or 2) no significant blood pressure differential between the right and left arms. In addition, the laboratory and imaging results are not consistent with aortic dissection. In particular, the chest x-ray does not meet any of the criteria for aortic dissection. ED CourseMedication(s) OrderedMedication(s) Ordered:Central Nervous System Agents Sig/Cristina Start time Last Medication Dose Route Stop Time Status Admin Acetaminophen 1,000 MG X1ED STA 01/18 916 DC 01/17 PO 01/17 917 0930 Skin And Mucous Membrane Agent Sig/Cristina Start time Last Medication Dose Route Stop Time Status Admin Lidocaine 1 PATCH X1ED STA 01/17 917 DC 01/17 TRANSDERM 01/17 918 0928 Differential Diagnosis)( Differential Diagnosis Hernia, Peptic ulcer disease, Pyelonephritis, Urinary tract infection Patient Discharge Departure Vital Signs/ConditionVital SignsFirst Documented: Result Date Time Pulse Ox 99 01/17 0851 B/P 148/83 01/17 0851 B/P Mean 104 01/17 0851 O2 Delivery Room air 01/17 0851 Temp 98.2 01/17 0851 Pulse 99 01/17 0851 Resp 16 01/17 0851 Last Documented: Result Date Time Pulse Ox 100 01/17 1017 B/P 135/84 01/17 1017 B/P Mean 101 01/17 1017 O2 Delivery Room air 01/17 1017 Temp 98.5 01/17 1017 Pulse 85 01/17 1017 Resp 18 01/17 1017 All vital signs available at the time of this entry have been reviewed. Clinical ImpressionClinical ImpressionPrimary Impression: SciaticaSecondary Impressions: 26 weeks gestation of Disposition DecisionDischarge )( Discharged to Home Yes )( Time 1011 )( Date 01/17/23 Discharge/Care PlanCounseled Regarding Diagnosis, Need for follow-up, When to return to EDPatient Instructions ED SciaticaAdditional InstructionsSee handout on stretches to assist with -related sciatica. Consider a pillow with sleeping to stabilize hips and prevent pelvic rotation while sleeping.ReferralsProvider Referral: Kaleb Roblero MD Address: [address] [place] [id number] Discharge NoteI have spoken with the patient and/or caregivers. I have explained the patient'scondition, diagnoses and treatment plan based on the information available to meat this time. I have answered the patient's and/or caregiver's questions and addressed any concerns. The patient and/or caregivers have as good an understanding of the patient's diagnosis, condition and treatment plan as can beexpected at this point. The vital signs have been stable. The patient's condition is stable and appropriate for discharge from the emergency department. The patient will pursue further outpatient evaluation with the primary care physician or other designated or consulting physician as outlined in the discharge instructions. The patient and/or caregivers are agreeable to this planof care and follow-up instructions have been explained in detail. The patient and/or caregivers have received these instructions in written format and have expressed an understanding of the discharge instructions. The patient and/or caregivers are aware that any significant change in condition or worsening of symptoms should prompt an immediate return to this or the closest emergency department or a call to 911. Quality MeasuresUS in Preg w/AP/VB IUP documented previouslyRH- Risk Fet Bld Exposure No risk blood expos at 1437RPT #:[id number] OF REPORTEDEmevirginia mason hospital department [id number]:51:00F.[id number] ilable for patient [id number]:38:18 [facility] 2022-10-19 08:31:00 [id number]:31:00 [facility] PROVIDER REPORTREPORT#:[id number] REPORT STATUS: SignedDATE:10/19/22 TIME: 830 PATIENT: MICHAEL TRAN UNIT #: [id number]#: [id number] ROOM/BED:AGE: 27 SEX: F PCP PHYS: No Primary or Family PhysicianSERVICE AUTHOR: Margy Rizzo MD * ALL edits or amendments must be made on the electronic/computer document * HPI-Abd Pain F Under 40 Free Text HPI NotesFree Text HPI NotesCC: epigastric pain since 2199 last night History: [id number]: 07/14/22EDD: -GA: [id number]: noneSymptoms: epigastric pain; worse in supine positionPain Scale: *7 out of 10 on pain scale when most severe; currently rated 5 out of 10 on pain scaleExacerbating Factors: noneAlleviating Factors: noneMeds Taken: noneObGyn: none (recently moved to [place] from [facility]) GeneralInitial Greet Date/Time 10/19/22830 PresentationChief Complaint Abdominal pain (epigastric)Hx Obtained From Patient Risk-Abd Pain F Under 40)( Ectopic Risk factors reviewed, No risk factors Review of Systems ROS StatementsAll systems rev neg except as marked. Free Text ROS NotesFree Text ROS NotesFocused Review of SystemsConstitutionalDenies: Chills, Fever, Lethargy. GIDenies: Diarrhea, Nausea, Vomiting. (+) Epigastric pain, constipationGU FemaleReports: , no vaginal bleedingMusculoskeletalDenies: Back pain, Extremity pain. EndocrineDenies: Polyuria, Weight loss. SkinDenies: Diaphoresis, Rash. NeurologicDenies: Change LOC, Dizziness, Focal weakness, Headache, Numbness, Slurred speech. Additional Review of SystemsRespiratoryDenies: Pleuritic pain, Shortness of breath. CardiovascularDenies: Chest pain, Dyspnea on exertion, Palpitations. Past Medical History - AdultStated Complaint ABD PAIN EPIGASTRIC, POSITIVE TEST TAllergiesCoded Allergies:No Known Allergies (09/02/10) Physical Exam Vital SignsVital SignsFirst Documented: Result Date Time Pulse Ox 97 10/19 0837 B/P 122/71 10/19 0837 B/P Mean 88 10/19 0837 O2 Delivery Room air 10/19 0837 Temp 98.7 10/19 0837 Pulse 100 10/19 0837 Resp 16 10/19 0837 Last Documented: Result Date Time Pulse Ox 96 10/19 1046 B/P 110/56 10/19 1046 B/P Mean 74 10/19 1046 O2 Delivery Room air 10/19 1046 Temp 98.9 10/19 1046 Pulse 82 10/19 1046 Resp 18 10/19 1046 Review of Vital Signs Reviewed, Vital signs normal Focused PEGeneral/Const General/Const Awake, Alert, Well appearingMS Head Head Atraumatic, NormocephalicEyes Eyes Atraumatic, PERRLEars/Nose/Throat Ears/Nose/Throat Airway patent, Mucous membranes moist, Pharynx NLResp/Chest Respiratory/Chest Breath sounds NL, Breath sounds = bilat, No respiratory distress, No rales, No rhonchi, No wheezingCardiovascular Cardiovascular Heart rate NL, Regular rhythm, Heart sounds NL, Peripheral circulation NLAbdomen/GI Abdomen/GI Soft, McBurney's non-tender, No guarding, No rebound, BS normoactive, No distention, No hernia, No palpable mass Tenderness/Guarding/Rebound Tender epigastric. MS Back Back Inspection NL, Non-tender, No CVA tendernessSkin Skin Color NL, Warm, Dry, Turgor NLGenitourinary Female Genitourinary External genitalia NL, No bleeding, No discharge, No cervical motion tend, Os closed, No adnexal mass, No adnexal tenderness, No uterine enlargement, No uterine mass, No lesions or rashRectum Rectum/Perineum Blood - occult heme neg, 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, No gross blood, No fissures, No hemorrhoids, Sphincter tone NLNeurologic Neurologic Oriented X3, Speech NL, No motor deficits, No sensory deficits Interpretation Diagnostics Lab Results InterpretationResultsLaboratory Tests: 10/19 0842 Urines Urine Color (YELLOW) STRAW Urine Appearance (CLEAR) CLEAR Urine pH (5 - 9) 8.0 Ur Specific Union (1.001 - 1.035) 1.005 Urine Protein (NEG) NEGATIVE Urine Glucose (UA) (NEG) NEGATIVE Urine Ketones (NEG) NEGATIVE Urine Blood (NEG) NEG Urine Nitrite (NEG) NEG Urine Bilirubin (NEG) NEGATIVE Urine Urobilinogen (NEG mg/dL) NEGATIVE Ur Leukocyte Esterase (NEG) NEG Urine WBC (NONE SEEN #/hpf) 0-2 Ur Epithelial Cells (RARE - FEW #/HPF) RARE Urine HCG, Qual POSITIVE Lab StatementLaboratory studies reviewed and considered in the medical decision-making. SonographyUS Focused OB Exam Type Diagnostic Exam Performed by ED physician Clinical Category Initial exam Exam Interpreted by Interpreted by me, Independently interpreted Reviewed by ED physician Time Reviewed 0848 Indication by patient hx Views Transabdominal sagittal, Transabdominal transverse Findings If preg: heart pos, motion visible Findings for IUP FL: 14w2d Interpretation Live intrauterine preg Re-Evaluation MDM Free Text MDM NotesFree Text MDM NotesA/P: 27yo AAF with PMH as above p/w epigastric pain1. UA, UPreg2. Meds3. Re-assessADDENDUMTime: 1015UA -ve. Bedside US confirms 13-14 week IUP. Pt re-assessed; symptoms improved. Results of work-up d/w Pt; voiced understanding. Ok for DC home with PCP follow-up )( Re-Evaluation/Progress #1)( Re-Eval Status ImprovedPlan Post Re-Eval Plan discharge Abd Pain MDM Note F < 40The patient is resting comfortably and feels better, is alert and in no distress. The repeat examination is unremarkable and benign; in particular, there is no discomfort at McBurney's point. The history, exam, diagnostic testing, and current condition do not suggest acute appendicitis, bowel obstruction, tubovarian abscess, ectopic , ovarian torsion, acute cholecystitis, bowel perforation, major gastrointestinal bleeding, severe diverticulitis, sepsis, or other significant pathology to warrant further testing, continued ED treatment, admission, or surgical evaluation at this point. The vital signs have been stable. The patient does not have uncontrollable pain, intractable vomiting, or other significant symptoms. The patient's condition is stable and appropriate for discharge. The patient will pursue further outpatient evaluation with the primary care physician or other designated or consulting physician as indicated in the discharge instructions. ED CourseMedication(s) OrderedMedication(s) Ordered:Central Nervous System Agents Sig/Cristina Start time Last Medication Dose Route Stop Time Status Admin Morphine Sulfate 4 MG X1ED STA 10/19 0939 DC 10/19 IM 10/19 0940 0950 Gastrointestinal Drugs Sig/Cristina Start time Last Medication Dose Route Stop Time Status Admin Sucralfate 1,000 MG X1ED STA 10/19 0920 DC 10/19 PO 10/19 0921 0926 Multi-Ingredient GI 30 ML X1ED STA 10/19 0832 DC 10/19 Drug PO 10/19 0833 0859 Differential Diagnosis)( Differential Diagnosis Acute abdominal pain, Gastritis, Gastroenteritis, GERD Patient Discharge Departure Vital Signs/ConditionVital SignsFirst Documented: Result Date Time Pulse Ox 97 10/19 0837 B/P 122/71 10/19 0837 B/P Mean 88 10/19 0837 O2 Delivery Room air 10/19 0837 Temp 98.7 10/19 0837 Pulse 100 10/19 0837 Resp 16 10/19 0837 Last Documented: Result Date Time Pulse Ox 96 10/19 1046 B/P 110/56 10/19 1046 B/P Mean 74 10/19 1046 O2 Delivery Room air 10/19 1046 Temp 98.9 10/19 1046 Pulse 82 10/19 1046 Resp 18 10/19 1046 All vital signs available at the time of this entry have been reviewed. Clinical ImpressionClinical ImpressionPrimary Impression: PUD (peptic ulcer disease)Secondary Impressions: 13 weeks gestation of Disposition DecisionDischarge )( Discharged to Home Yes )( Time 1019 )( Date 10/19/22 Discharge/Care PlanCounseled Regarding Diagnosis, Lab results, Imaging studies, Prescriptions, Needfor follow-up, When to return to ED(Auto) PrescriptionsCurrent Visit ScriptsFAMOTIDINE (PEPCID) 40 MG PO BEDTIME FAMOTIDINE (PEPCID) 40 MG PO BEDTIME #30 TABS MAG HYDROX/AL HYDROX/SIMETH (MAG-AL PLUS 200-200-20 MG/5ML) 30 ML PO BEDTIME MAG HYDROX/AL HYDROX/SIMETH (MAG-AL PLUS 200-200-20 MG/5ML) 30 ML PO BEDTIME #200 ML SUCRALFATE (CARAFATE 1 GM/10 ML) 1 GM PO AC HS PRN heartburn SUCRALFATE (CARAFATE 1 GM/10 ML) 1 GM PO AC HS PRN heartburn #1200 ML PNV/FE FUM/FA ( MULTIVITAMIN) 1 TAB PO DAILY PNV/FE FUM/FA ( MULTIVITAMIN) 1 TAB PO DAILY #30 TABS Patient Instructions ED Gastritis Ulcer No Abx, ED Peptic UlcerReferralsProvider Referral: Makayla Broussard MD Notes: ObGyn Address: [facility] [address], [address] [address] Discharge NoteI have spoken with the patient and/or caregivers. I have explained the patient'scondition, diagnoses and treatment plan based on the information available to meat this time. I have answered the patient's and/or caregiver's questions and addressed any concerns. The patient and/or caregivers have as good an understanding of the patient's diagnosis, condition and treatment plan as can beexpected at this point. The vital signs have been stable. The patient's condition is stable and appropriate for discharge from the emergency department. The patient will pursue further outpatient evaluation with the primary care physician or other designated or consulting physician as outlined in the discharge instructions. The patient and/or caregivers are agreeable to this planof care and follow-up instructions have been explained in detail. The patient and/or caregivers have received these instructions in written format and have expressed an understanding of the discharge instructions. The patient and/or caregivers are aware that any significant change in condition or worsening of symptoms should prompt an immediate return to this or the closest emergency department or a call to 911. Quality MeasuresUS in Preg w/AP/VB IUP documented previouslyRH- Risk Fet Bld Exposure No risk blood expos at 1520RPT #:[id number] OF REPORTMemorial Hermann–[facility] department [id number]:31:00F.[id number] ilable for patient [id number]:20:34 HCAWH
--- NOTE | 2023-09-03 22:00 | RAD REPORT ---
EXAM DESCRIPTION: CT - CTHCSPWOC - 09/03/2023 9:49 pm CLINICAL HISTORY: Trauma, head and neck injury. TRAUMA COMPARISON: No comparisons TECHNIQUE: Axial 5 mm thick images of the head were obtained. Axial 2 mm thick images of the cervical spine were obtained with sagittal and coronal reconstruction images generated and reviewed. All CT scans are performed using dose optimization technique as appropriate and may include automated exposure control or mA/KV adjustment according to patient size. FINDINGS: CT HEAD WITHOUT CONTRAST: No acute hemorrhage, hydrocephalus or extra-axial collection is identified.No areas of brain edema or midline shift. The paranasal sinuses and mastoids are clear.The calvarium is intact. CT CERVICAL SPINE WITHOUT CONTRAST: No fracture or subluxation.No prevertebral soft tissues swelling is identified. IMPRESSION: No acute intracranial or cervical spine findings.
--- NOTE | 2023-09-03 23:16 | EDPHYS ---
Physician Documentation [facility] Name: Arianna Tran Age: 28 yrs Sex: Female : 1995 Arrival Date: 09/03/2023 Time: 21:07 Bed 6 Private MD: ED Physician Rosendo Reed HPI: 09/02 22:33 This 28 yrs old Black Female presents to ER via Wheelchair with complaints of Fall kb Injury, Head Injury-Adult - dizziness,headache and tired. 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 States she kb caught the ball and fell backwards hitting her head on the ground. Reports dizziness, headache and fatigue. No LOC. Also reports left posterior shoulder pain and left mid back/low rib pain. . Historical: - Allergies: 21:27 No Known Allergies; jb4 - PMHx: 21: sludge in gallbladder; gallstones; jb4 - PSHx: 21:27 ; jb4 - Immunization history:: Adult Immunizations up to date. - Infectious Disease History:: Denies. - Social history:: Smoking status: Patient denies any tobacco usage or history of. Patient uses alcohol, occasionally. ROS: 22:33 Constitutional: As per HPI kb Exam: 22:36 Constitutional: This is a well developed, well nourished patient who is awake, alert, kb and in no acute distress. ENT: Moist Mucous membranes Cardiovascular: Regular rate Respiratory: Respirations even and unlabored. No increased work of breathing. Talking in full sentences Abdomen/GI: Soft, non-tender. No distention Skin: Warm, dry with normal turgor. Normal color. MS/ Extremity: Pulses equal, no cyanosis. Neurovascular intact. Full, normal range of motion. Neuro: Awake and alert, GCS 15, oriented to person, place, time, and situation. Moves all extremities. Normal gait. 22:36 Head/face: Noted is no obvious of injury or deformity except abrasion(s), hematoma, 22:36 Back: pain, that is mild, of the left scapular area and left subscapular area, Vital Signs: 21:24 BP 135 / 102; Pulse 107; Resp 16; Temp 97.3(TE); Pulse Ox 100% on R/A; Weight 79.38 kg jb4 (R); Height 5 ft. 4 in. (R); Pain 7/10; 21:34 BP 135 / 102; Pulse 105; Resp 18 S; Pulse Ox 100% on R/A; ha1 22:00 BP 124 / 85; Pulse 112; Resp 16; Pulse Ox 99% on R/A; cm10 22:30 BP 121 / 86; Pulse 97; Resp 16; Pulse Ox 97% on R/A; cm10 23:00 BP 121 / 84; Pulse 98; Resp 16; Pulse Ox 98% ; cm10 21:24 Body Mass Index 30.04 (79.38 kg, 162.56 cm) jb4 21:24 Pain Scale: Adult jb4 MDM: 21:09 Patient medically screened. kb 22:36 Differential diagnosis: abrasion, closed head injury, contusion, fracture, sprain, kb strain. Data reviewed: vital signs, nurses notes. Historians other than the Patient: Family Member: family. 23:15 Counseling: I had a detailed discussion with the patient and/or guardian regarding the kb historical points, exam findings, and any diagnostic results supporting the discharge/admit diagnosis, radiology results, the need for outpatient follow up, a family practitioner, to return to the emergency department if symptoms worsen or persist or if there are any questions or concerns that arise at home. 09/02 21:17 Order name: CT Head C Spine; Complete Time: 22:01 kb 09/02 21:17 Order name: Chest Single View XRAY kb Administered Medications: No medications were administered Disposition Summary: 09/03/23 23:16 Discharge Ordered Notes: Location: Home kb Condition: Stable kb Diagnosis - Unspecified injury of head, initial encounter kb Followup: kb - With: Emergency Department - When: As needed - Reason: Worsening of condition Followup: kb - With: Private Physician - When: 2 - 3 days - Reason: Recheck today's complaints, Continuance of care, Re-evaluation by your physician Discharge Instructions: - Discharge Summary Sheet kb - Concussion, Adult, Flni-yn-Jyow kb - Head Injury, Adult, [id number] kb Forms: - Work release form kb - Medication Reconciliation Form kb - Antibiotic Education kb - Prescription Opioid Use kb - Patient Portal Instructions kb - Leadership Thank You Letter kb Addendum: 09/06/2023 22:03 Co-signature as Attending Physician, Rosendo Reed MD I agree with the assessment and c puentes plan of care. Signatures: Dispatcher [employer] EDMS Carissa Pierce, VICE PRESIDENT OF DEVELOPMENT-C VICE PRESIDENT OF DEVELOPMENT-CkRosendo Colby MD MD cha Bryson, James, RN RN jb4 Corrections: (The following items were deleted from the chart) 09/02 21:18 21:18 Head C Spine MPR Wo Con+CT.RAD.BRZ ordered. EDMS EDMS 21:18 21:18 Chest Single View+RAD.RAD.BRZ ordered. EDMS EDMS
--- NOTE | 2023-09-03 23:16 | ER ---
Nurse's Notes [facility] Name: Arianna Tran Age: 28 yrs Sex: Female : 1995 Arrival Date: 09/03/2023 Time: 21:07 Bed 6 Private MD: Diagnosis: Unspecified injury of head, initial encounter Presentation: 09/02 21:24 Chief complaint: Patient states: I was playing football with the kids. I was running jb4 backwards and caught the ball and fell. I hit my head on the concrete. I did not pass out. I am having pain the back of my head, neck, and left shoulder blade. Coronavirus screen: At this time, the client does not indicate any symptoms associated with coronavirus-19. Ebola Screen: No symptoms or risks identified at this time. Initial Sepsis Screen: Does the patient meet any 2 criteria? HR > 90 bpm. Yes Does the patient have a suspected source of infection? No. Patient's initial sepsis screen is negative. Risk Assessment: Do you want to hurt yourself or someone else? Patient reports no desire to harm self or others. Onset of symptoms was September 03, 2023. Transition of care: patient was not received from another setting of care. 21:24 Method Of Arrival: Wheelchair jb4 21:24 Acuity: LIZY 4 jb4 Historical: - Allergies: 21:27 No Known Allergies; jb4 - PMHx: 21:27 sludge in gallbladder; gallstones; jb4 - PSHx: 21:27 ; jb4 - Immunization history:: Adult Immunizations up to date. - Infectious Disease History:: Denies. - Social history:: Smoking status: Patient denies any tobacco usage or history of. Patient uses alcohol, occasionally. Screenin:33 [facility] ED Fall Risk Assessment (Adult) History of falling in the last 3 months, ha1 including since admission Yes- single mechanical fall (1 pt) Confusion or Disorientation No (0 pts) Intoxicated or Sedated No (0 pts) Impaired Gait No (0 pts) Mobility Assist Device Used No (0 pt) Altered Elimination No (0 pt) Score/Fall Risk Level 0 - 2 = Low Risk Oriented to surroundings, Maintained a safe environment, Hourly rounding (assess needs \T\ fall precautionary measures) done. Abuse screen: Denies threats or abuse. Denies injuries from another. Nutritional screening: No deficits noted. Tuberculosis screening: No symptoms or risk factors identified. Assessment: 21:15 General: Appears uncomfortable, Behavior is calm, cooperative. Pain: Complains of pain ha1 in back of head Pain does not radiate. Pain currently is 7 out of 10 on a pain scale. Quality of pain is described as throbbing. 21:15 Neuro: Level of Consciousness is awake, alert, obeys commands, Oriented to person, ha1 place, time, situation. Neuro: Reports headache after falling and hitting the back of her head. reports no LOC. Cardiovascular: Capillary refill < 3 seconds Patient's skin is warm and dry. Respiratory: Airway is patent Respiratory effort is even, unlabored, Respiratory pattern is regular, symmetrical. GI: No signs and/or symptoms were reported involving the gastrointestinal system. Abdomen is round non-distended. : No signs and/or symptoms were reported regarding the genitourinary system. Derm: Skin is moist, Skin is normal. Musculoskeletal: Circulation, motion, and sensation intact. Range of motion: intact in all extremities. Musculoskeletal: Reports pain in neck. 21:51 Reassessment: Patient and/or family updated on plan of care and expected duration. Pain ha1 level reassessed. Patient is alert, oriented x 3, equal unlabored respirations, skin warm/dry/pink. back from CT. 22:50 Reassessment: Patient and/or family updated on plan of care and expected duration. Pain ha1 level reassessed. Patient is alert, oriented x 3, equal unlabored respirations, skin warm/dry/pink. Patient states feeling better. Patient states symptoms have improved. Vital Signs: 21:24 BP 135 / 102; Pulse 107; Resp 16; Temp 97.3(TE); Pulse Ox 100% on R/A; Weight 79.38 kg jb4 (R); Height 5 ft. 4 in. (R); Pain 7/10; 21:34 BP 135 / 102; Pulse 105; Resp 18 S; Pulse Ox 100% on R/A; ha1 22:00 BP 124 / 85; Pulse 112; Resp 16; Pulse Ox 99% on R/A; cm10 22:30 BP 121 / 86; Pulse 97; Resp 16; Pulse Ox 97% on R/A; cm10 23:00 BP 121 / 84; Pulse 98; Resp 16; Pulse Ox 98% ; cm10 21:24 Body Mass Index 30.04 (79.38 kg, 162.56 cm) jb4 21:24 Pain Scale: Adult jb4 ED Course: 21:09 Patient arrived in ED. ra3 21:09 Carissa Pierce [facility]NP-C [facility]. kb 21:09 Rosendo Reed MD is Attending Physician. kb 21:15 Client placed on continuous cardiac and pulse oximetry monitoring. NIBP monitoring ha1 applied. Door closed. Lights dimmed. Warm blanket given. Ice pack to injury. 21:15 Patient has correct armband on for positive identification. Bed in low position. Call ha1 light in reach. Side rails up X 1. Adult w/ patient. 21:27 Triage completed. jb4 21:27 Arm band placed on right wrist. jb4 21:44 Provided Education on: fall prevention . ha1 21:48 CT Head C Spine In Process Unspecified. EDMS 22:48 Chest Single View XRAY In Process Unspecified. EDMS 23:37 No provider procedures requiring assistance completed. Patient did not have IV access ha1 during this emergency room visit. Administered Medications: No medications were administered Medication: 21:34 VIS not applicable for this client. ha1 Outcome: 23:16 Discharge ordered by . kb 23:37 Discharged to home ambulatory, with family, ha1 23:37 Condition: stable 23:37 Discharge instructions given to patient, family, Instructed on discharge instructions, follow up and referral plans. Demonstrated understanding of instructions, follow-up care, 23:38 Patient left the ED. ha1 Signatures: Dispatcher [employer] EDMS Carissa Pierce FNP-C FNP-Steven Travis RN RN jb4 Elizabeth Johnson RN RN ha1 Taniya Patton RN RN cm10 Katja Casas ra3
[2023-09-03 23:52] VITALS: BP 121/84; TEMP 97.3; O2SAT 98
--- NOTE | 2023-09-04 17:42 | RAD REPORT ---
EXAM DESCRIPTION: RAD - Chest Single View - 09/03/2023 10:46 pm CLINICAL HISTORY: 28 years, Female, PAIN COMPARISON: None FINDINGS: 1 views of the chest was obtained. Prior films were compared. There is slight decreased lung volume. Mediastinum: The cardiomediastinal silhouette appears normal in size and shape. Lungs: No areas of consolidations or masses are identified. Heart: The heart is normal in size. Thoracic aorta: The thoracic aorta demonstrate to be normal. Pulmonary vasculature: The pulmonary vasculature is normal in distribution. Pleura: The costophrenic angles demonstrate to be sharp. Osseous structures: The bony structures demonstrate to be within normal limits. Other: None. IMPRESSION: No acute cardiopulmonary disease is seen Electronically signed by: Roel Castrejon MD 09/03/2023 11:11 PM CDT Due to temporary technical issues with the PACS/Fluency reporting system, reports are being signed by the in house radiologists without review as a courtesy to insure prompt reporting. The interpreting radiologist is fully responsible for the content of the report.
== END 2023-09-03 23:38 | disposition home or self-care (01) ==
LOC: ER 21:07
DX: S00.81XA Abrasion of other part of head, initial encounter (principal); M54.9 Dorsalgia, unspecified; M54.2 Cervicalgia
CPT/HCPCS: 70450; 71045; 72125